=== PATIENT | male | born 1935 | race Caucasian/White ===

== ENCOUNTER 2016-03-30 11:10 | Inpatient (IN) | payer OTHER ==
--- NOTE | 2016-03-30 12:39 | PROVIDER DOCUMENTATION ---
HPI-General Adult - General Chief Complaint: Weakness Stated Complaint: DIFFICULTY AMBULATING Time Seen by Provider: 03/30/16 11:40 Source: patient, family Allergies/Adverse Reactions: Patient Allergies Allergy/AdvReac Type Severity Reaction Status Date / Time No Known Allergies Allergy Verified 03/30/16 11:22 Home Medications: Aspirin [Aspirin EC] 81 mg PO DAILY 04/30/14 Citalopram Hydrobromide [Celexa] 20 mg PO HS 04/30/14 Finasteride 5 mg PO DAILY 04/30/14 Gabapentin 300 mg PO TID 04/30/14 LISINOpril [Prinivil] 10 mg PO DAILY 04/30/14 Metformin [Glucophage] 1,000 mg PO BID 04/30/14 Metformin [Glucophage] 500 mg PO DAILY 04/30/14 Multivitamin [Multivitamins] 1 each PO DAILY 04/30/14 Adams-3 Fatty Acids/Fish Oil [Fish Oil 1,000 mg Softgel] 1 each PO DAILY SIMVAstatin [Zocor] 10 mg PO QHS 04/30/14 Cyanocobalamin (Vitamin B-12) [Vitamin B-12] 500 mcg PO DAILY 01/09/16 - History of Present Illness -Gen Adult Nature of Presenting Problems: Reports with hx of NPH shunt that presents to er with increasing weakness since yesterday. Reports was unable to get out of bed this morning and reports confusion this am that has subsided. Location of Pain/Injury: reports: none Pain Radiation: reports: no radiation Quality of Pain: reports: none Severity: reports: moderate Onset/Duration: reports: last night Timing: reports: still present Similar Symptoms Previously?: No Recently seen or treated by another doctor?: No Review of Systems - Adult - REVIEW OF SYSTEMS - ADULT Constitutional: denies: chills, fever, fatique Eyes: reports: no symptoms reported Ears, Nose, Mouth & Throat: reports: no symptoms reported Cardiovascular: denies: chest pain, irregular heart rate, orthopnea, syncope Respiratory: reports: no symptoms reported Gastrointestinal: reports: no symptoms reported Genitourinary: reports: no symptoms reported Musculoskeletal: reports: see HPI, other (generalized weakness). denies: joint pain, joint swelling, neck pain Integumentary: reports: no symptoms reported Neurological: reports: other (confusion). denies: numbness, paresthesia, seizure Psychiatric: reports: no symptoms reported Endocrine: reports: no symptoms reported Hematologic/Lymphatic: reports: no symptoms reported Allergic/Immunologic: reports: no symptoms reported All Other Systems: Reviewed and Negative Past History - Adult - PAST MEDICAL HISTORY-ADULT Review of Records: reports: Nursing Assessment Review, Medications Reviewed Cardiovascular: reports: CAD, HTN, hyperlipidemia, CO Genitourinary: reports: kidney stones Neurological: reports: TIA, other (NPH/shunt) Endocrine/Immune: reports: Diabetes, thyroid disorder - PRIOR SURGERIES/PROCEDURES Surgical/Procedure History: reports: CABG, cardiac stent (x2), orthopedic ( extremity) - IMMUNIZATION STATUS Childhood Immunizations: See Nurse Assessment Flu Vaccine: See Nurse Assessment - FAMILY HISTORY Family History: reviewed, not pertinent - SOCIAL HISTORY Smoking: denies Substance Use: none/never Physical Exam-General - PHYSICAL EXAM-ADULT Initial Vital Signs Reviewed: Yes - CONSTITUTIONAL General Appearance: appears well, alert, no apparent distress - EYES Eyes: PERRL/EOMI, pink conjunctivae - HEAD, EARS, NOSE, MOUTH & THROAT HENMT: normocephalic/atraumatic, moist mucous membranes, normal ENT inspection - NECK Neck: non-tender, full range of motion, normal inspection - RESPIRATORY Respiratory: chest non-tender, lungs clear, normal breath sounds - CARDIOVASCULAR Cardiovascular: normal peripheral pulses, regular rate, rhythm, no edema - GASTROINTESTINAL (ABDOMEN) Abdominal Exam: normal bowel sounds, non tender, soft - LYMPHATIC Lymphatic: no adenopathy - MUSCULOSKELETAL Back Exam: normal inspection, no CVA tenderness, no vertebral tenderness Extremity: normal range of motion, non-tender, normal gait - SKIN Integumentary: normal color, normal turgor, warm/dry - NEUROLOGIC Neurologic: grossly normal, no motor/sensory deficits - PSYCHIATRIC Psych/Mental Status: normal mood/affect, normal thought content, normal thought process, oriented x 3 Progress - PLAN OF CARE/RESULTS Progress/Plan/Lab Results: Orders Category Date Time Status Diabetic Diet Diet 03/30/16 12:31 Active CBC WITH ELECTRONIC DIFF [HEME] Stat Lab 03/30/16 11:51 Ordered COMPREHENSIVE METABOLIC PANEL [CHEM] Stat Lab 03/30/16 11:51 Ordered TSH Stat Lab 03/30/16 11:51 Ordered UA NIMS W/REFLEX CULT [URINALYSIS] Stat Lab 03/30/16 11:47 Uncollected Vital Signs - 24 hr 03/30/16 11:17 Temperature 98.2 F Pulse Rate 76 Respiratory 17 Rate Blood Pressure 127/66 O2 Sat by Pulse 97 Oximetry Laboratory Tests 03/30/16 03/30/16 11:14 12:49 WBC 13.61 H RBC 4.58 L Hgb 13.3 L Hct 41.4 L MCV 90.4 MCH 29.0 MCHC 32.1 L RDW Std Deviation 14.8 H Plt Count 316 MPV 10.4 Immature Gran % (Auto) 0.3 Neut % (Auto) 82.7 H Lymph % (Auto) 7.4 L Milam % (Auto) 8.3 Eos % (Auto) 1.2 Baso % (Auto) 0.1 Immature Gran # (Auto) 0.04 Neut # (Auto) 11.25 H Lymph # (Auto) 1.01 L Milam # (Auto) 1.13 H Eos # (Auto) 0.16 Baso # (Auto) 0.02 Urine Source CATH Urine Color ORANGE Urine Turbidity TURBID Urine pH 6.0 Ur Specific [place] 1.019 Urine Protein 200 A Ur Glucose (Stick) 150 A Ur Ketones (Stick) NEGATIVE Urine Blood LARGE A Urine Nitrite POSITIVE A Urine Bilirubin NEGATIVE Urobilinogen Dipstick NORMAL Urine Leukocytes LARGE A Urine WBC (Auto) TNTC A Urine RBC (Auto) TNTC A U Epithel Cells (Auto) <10 Urine Bacteria (Auto) 4+ Urine Crystals NONE SEEN Small Round Cells NONE SEEN Urine Casts NONE SEEN Urine Yeast-like Cells PRESENT PT reports pt neurosurgeon is at the [facility] in [place] Laboratory Tests 03/30/16 03/30/16 03/30/16 11:14 11:14 11:14 WBC 13.61 H RBC 4.58 L Hgb 13.3 L Hct 41.4 L MCV 90.4 MCH 29.0 MCHC 32.1 L RDW Std Deviation 14.8 H Plt Count 316 MPV 10.4 Immature Gran % (Auto) 0.3 Neut % (Auto) 82.7 H Lymph % (Auto) 7.4 L Milam % (Auto) 8.3 Eos % (Auto) 1.2 Baso % (Auto) 0.1 Immature Gran # (Auto) 0.04 Neut # (Auto) 11.25 H Lymph # (Auto) 1.01 L Milam # (Auto) 1.13 H Eos # (Auto) 0.16 Baso # (Auto) 0.02 Sodium 139 Potassium 4.0 Chloride 98 Carbon Dioxide 26 Anion Gap 15 BUN 14 Creatinine 1.0 Estimated GFR/1.73 m2 > 60 BUN/Creatinine Ratio 14 Glucose 176 H Calculated Osmolality 282 Calcium 9.9 Total Bilirubin 0.58 AST 17 ALT 14 Alkaline Phosphatase 67 Total Protein 7.4 Albumin 4.1 Globulin 3.3 Albumin/Globulin Ratio 1.2 TSH 4.49 H Urine Source Urine Color Urine Turbidity Urine pH Ur Specific [place] Urine Protein Ur Glucose (Stick) Ur Ketones (Stick) Urine Blood Urine Nitrite Urine Bilirubin Urobilinogen Dipstick Urine Leukocytes Urine WBC (Auto) Urine RBC (Auto) U Epithel Cells (Auto) Urine Bacteria (Auto) Urine Crystals Small Round Cells Urine Casts Urine Yeast-like Cells 03/30/16 12:49 WBC RBC Hgb Hct MCV MCH MCHC RDW Std Deviation Plt Count MPV Immature Gran % (Auto) Neut % (Auto) Lymph % (Auto) Milam % (Auto) Eos % (Auto) Baso % (Auto) Immature Gran # (Auto) Neut # (Auto) Lymph # (Auto) Milam # (Auto) Eos # (Auto) Baso # (Auto) Sodium Potassium Chloride Carbon Dioxide Anion Gap BUN Creatinine Estimated GFR/1.73 m2 BUN/Creatinine Ratio Glucose Calculated Osmolality Calcium Total Bilirubin AST ALT Alkaline Phosphatase Total Protein Albumin Globulin Albumin/Globulin Ratio TSH Urine Source CATH Urine Color ORANGE Urine Turbidity TURBID Urine pH 6.0 Ur Specific [place] 1.019 Urine Protein 200 A Ur Glucose (Stick) 150 A Ur Ketones (Stick) NEGATIVE Urine Blood LARGE A Urine Nitrite POSITIVE A Urine Bilirubin NEGATIVE Urobilinogen Dipstick NORMAL Urine Leukocytes LARGE A Urine WBC (Auto) TNTC A Urine RBC (Auto) TNTC A U Epithel Cells (Auto) <10 Urine Bacteria (Auto) 4+ Urine Crystals NONE SEEN Small Round Cells NONE SEEN Urine Casts NONE SEEN Urine Yeast-like Cells PRESENT [facility] Transfer paiged Pt will be sent to [facility] neurosurgery 1621 pt will be admitted to - CT/MRI 1 CT Study: Head Impression: Abnormal (positive shunt malfunction) - CONSULTS/PCP/HOSPITALIST Notification #1 *Consult/PCP/Hospitalist*: [facility] Time Discussed: 15:03 (if you do dont have a scan to compare it to this may be pt normal Can see pt in office next week.) #2 Consult: Time Discussed: 15:49 (Needs to go to where Neurosurgery is .) #3 Consult: Time Discussed: 16:11 (NPH isnt emergency unless hematoma can follow up tomorrow in office ) Departure - Departure Time of Disposition Order: 14:35 DIAGNOSIS: Encephalopathy Shunt malfunction Qualifiers: Encounter type: initial encounter Qualified Code(s): T85.618A - Breakdown ( mechanical) of other specified internal prosthetic devices, implants and grafts , initial encounter UTI (urinary tract infection) Qualifiers: Urinary tract infection type: site unspecified Hematuria presence: without hematuria Qualified Code(s): N39.0 - Urinary tract infection, site not specified Sepsis Qualifiers: Sepsis type: sepsis due to unspecified organism Qualified Code(s): A41.9 - Sepsis, unspecified organism Disposition: [place] [address] Certified Medical Emergency: Emergent Condition: Stable Referrals: None,PCP [Primary Care Provider] - Attestation - Scribe Verification/Attestation Scribe:: Deepak Hernandez Acting as Scribe for:: Ac Pollard Jr Scribe documention review:: This chart was documented by a scribe and accurately reflects the service the provider performed and the decisions made by the provider.
[2016-03-30 12:58] LABS: URINE CULTURE NEEDED? NO; URINE SOURCE CATH
[2016-03-30 13:00] LABS: BILIRUBIN URINE NEGATIVE (NEGATIVE); BLOOD URINE LARGE (NEGATIVE); COLOR ORANGE; GLUCOSE URINE 150 mg/dL (NEGATIVE); LEUKOCYTES URINE LARGE (NEGATIVE); NITRITE URINE POSITIVE (NEGATIVE); PROTEIN URINE 200 mg/dL (NEGATIVE); SP GRAVITY URINE 1.019; TURBIDITY URINE TURBID (CLEAR); UROBILINOGEN URINE NORMAL (NORMAL)
[2016-03-30 13:06] LABS: UR EPITHELIAL CELLS <10 /HPF (<10); URINE BACTERIA 4+ /HPF; URINE MICRO REVIEW NEEDED? YES; URINE RBC TNTC /HPF (<10); URINE WBC TNTC /HPF (<10)
[2016-03-30 13:10] LABS: URINE CASTS NONE SEEN; URINE CRYSTALS NONE SEEN; URINE SMALL ROUND CELLS NONE SEEN
[2016-03-30 13:12] LABS: MANUAL DIFF NEEDED? NO
[2016-03-30 13:15] LABS: BASO% 0.1 % (0.0-0.8); EOS# 0.16 X1000 (0.0-0.7); EOS% 1.2 % (0.0-10.0); HEMATOCRIT 41.4 % (42.0-52.0); HEMOGLOBIN 13.3 g/dL (14.0-18.0); IMM GRAN# 0.04 X1000 (0.0-0.04); IMM GRAN% 0.3 % (0.0-0.5); LYMPH# 1.01 X1000 (1.2-3.4); LYMPH% 7.4 % (20.5-51.1); MCHC 32.1 g/dL (33-37); MCV 90.4 FL (81-99); MONO# 1.13 X1000 (0.11-0.59); MONO% 8.3 % (1.7-9.3); MPV 10.4 FL (7.4-10.4); NEUT% 82.7 % (42.2-75.2); PLT 316 X1000 (130-400); RBC 4.58 XMIL (4.7-6.1)
[2016-03-30 13:32] LABS: AGAP 15; ALBUMIN 4.1 g/dL (3.5-5.0); ALKALINE PHOSPHATASE 67 U/L (32-122); BUN 14 mg/dL (8-22); CALCIUM 9.9 mg/dL (8.8-10.2); CHLORIDE 98 mmol/L (98-107); COSMO 282; GOT 17 U/L (10-34); GPT 14 U/L (10-44); SODIUM 139 mmol/L (136-145); TCO2 26 mmol/L (25-35); TOTAL BILIRUBIN 0.58 mg/dL (0.20-1.00); TOTAL PROTEIN 7.4 g/dL (6.3-8.3)
[2016-03-30] MEDS ORDERED: ROCEPHIN 1 GM/NS 50 ML IV ONE (13:41)
--- NOTE | 2016-03-30 14:35 | Diag Imaging Result Document ---
PROCEDURE NAME: HEAD W/O CONTRAST - 03/30/[address], 03/30/2016: A CT dose reduction protocol was used. COMPARISON: None. FINDINGS: There is a right frontal ventriculostomy catheter with the catheter tip in the right frontal horn. There is moderately severe ventriculomegaly, out of proportion of the degree of atrophy. There is some periventricular white matter hypodensity particularly in the right frontal lobe, but not really throughout the rest of the brain. No intracranial hemorrhage. The skull is intact. The sinuses are grossly clear. IMPRESSION: Ventriculomegaly out of proportion with the atrophy. This suggests hydrocephalus due to shunt malfunction. [facility]
[2016-03-30] MEDS ORDERED: VANCOMYCIN 1 GM/NS 250 ML IV ONE (16:22)
[2016-03-30] MEDS ORDERED: ZOFRAN IV PRN (17:18)
[2016-03-30] MEDS ORDERED: MORPHINE IV PRN (17:18)
--- NOTE | 2016-03-30 18:00 | HISTORY AND PHYSICAL ---
PRIMARY CARE PROVIDER: Dr. Staley at the [facility] in [place]. CHIEF COMPLAINT: Generalized weakness. HISTORY OF PRESENT ILLNESS: Mr. 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 His was able to help him but she could not get him to move his extremities to help roll over. She also stated that he started having hallucinations where he thought his mother was still alive. He was unsure of whose vehicle was in the driveway and it was theirs. She left him in this position on his stomach overnight. The next morning she was still unable to get him out of bed. She called 911. They helped her get him into the wheelchair. He ate breakfast and then she realized that him wearing a diaper, she was unable to help clean his bodily functions due to his extreme weakness. Upon admission workup revealed a head CT showing ventriculomegaly that was out of proportion with atrophy which suggests hydrocephalus due to shunt malfunction. According to the he has been in a wheelchair for about 2 months but prior to that he was using a walker. They did see Dr. Jacobo 2 months ago for BP shunt adjustment but at that time did not discuss his increasing weakness. Other assessment reveals that he has a urinary tract infection that will need IV antibiotic therapy which could also be adding to the confusion that he has been experiencing over the last 24 hours and weakness. The ER physician got in contact with Dr. Jacobo who said that he could make an appointment next Tuesday to follow up with malfunctioning of the SERVER DEVELOPER shunt. According to the they already had an appointment on May 05. We will admit him to the medical floor and continue to treat his urinary tract infection with IV antibiotics. PAST MEDICAL HISTORY: Coronary artery disease status post CABG, history of CVA, normal pressure hydrocephalus status post SERVER DEVELOPER shunt placement, hypertension, dyslipidemia, diabetes mellitus type 2, obesity with a BMI of 20 and fecal urinary incontinence and also has a skin irritation at the rectal and sacrum area. PAST SURGICAL HISTORY: Coronary bypass grafting, SERVER DEVELOPER shunt implementation. FAMILY HISTORY: Noncontributory due to age. SOCIAL HISTORY: Has been wheelchair bound for 2 months. Prior to that was in a walker. He is a . Denies tobacco, alcohol or illicit drug use. Lives at home with his of 61 years. ALLERGIES: No known drug allergies. HOME MEDICATIONS: Aspirin enteric-coated 81 mg p.o. daily, Celexa 20 mg p.o. nightly, finasteride 5 mg p.o. daily, gabapentin 300 mg p.o. 3 times a day, metformin 1000 mg p.o. twice daily and 500 mg p.o. daily, multivitamin 1 tab p.o. daily, fish oil 1 tab p.o. daily, lisinopril 10 mg p.o. daily, Zocor 10 mg p.o. nightly, vitamin B12 500 mcg p.o. daily, Flomax 0.4 mg p.o. daily and Protonix 40 mg p.o. daily. REVIEW OF SYSTEMS: Fourteen point review of systems were complete and all were negative except for those mentioned above HPI. LABORATORY: White blood cells 13,000, hemoglobin 13, hematocrit 41, platelet count 316,000. Sodium 139, potassium 4.0. BUN 14, creatinine is 1.0. GFR greater than 60. Glucose 176. Calcium 9.9. Total bilirubin 0.58. AST 17, ALT 14. Lactate 2.3. TSH 4.49. Urinalysis: 200 protein, 150 glucose, large blood, nitrite positive, leukocytes large. White blood cells too numerous to count. Red blood cells too numerous to count, bacteria 4+ and present yeast in urine. IMAGING: Head CT: Ventriculomegaly out of proportion with atrophy suggesting hydrocephalus due to shunt malfunction. PHYSICAL EXAMINATION: VITAL SIGNS: Temperature is 98.2 degrees, heart rate 83, respiratory rate 16, blood pressure 132/61, O2 saturation 95% on room air. GENERAL: Mr. Martinez is an 80-year-old, male. He is able answer questions appropriately but still has confused conversation. He is in no acute distress. HEENT: Atraumatic, normocephalic. Pupils equal, round, reactive to light. Extraocular movements intact. Face does have a little bit of a redness to it. NECK: No JVD or carotid bruits noted. CARDIOVASCULAR: S1, S2. Regular rate and rhythm. No rubs, gallops, murmurs. PULMONARY: Clear to auscultation. Bilateral breath sounds. No accessory muscle use or work of breathing noted. GI: Soft, nontender, nondistended. Positive bowel sounds x4. EXTREMITIES: He has about 2 to 3 strength in the lower extremities bilaterally that are equal. He has about a 4 to 4.5 strength bilateral upper extremities that are equal. He has +2 dorsalis pedal pulses and radial pulses. NEUROLOGIC: He is oriented x3 but had confused conversation. Pupils are equal, round, reactive. EXTREMITIES: No edema noted. SKIN: Warm, dry, intact. ASSESSMENT AND PLAN: 1. Urinary tract infection with sepsis with a white count greater than 12 and a respiratory rate greater than 20. Also has lactic acidosis with lactate of 2.3. Will do Zosyn IV q.6 hours. I will do a urine culture. 2. Infectious encephalopathy secondary to urinary tract infection. Should improve with UTI treatment and antibiotics, IV fluid hydration. 3. Normal pressure hydrocephalus status post SERVER DEVELOPER shunt placement. He had a CT of the head today. It revealed possible malfunctioning of the shunt. He has ventriculomegaly. He is to follow up with Dr. Jacobo next Tuesday. The ER physician has spoken to him prior to admission which may possibly be related to decreased strength in the lower extremities from SERVER DEVELOPER shunt adjustment 2 months ago and he has been in the wheelchair for 2 months now. 4. Hypertension. Continue medications. 5. Dyslipidemia. Hold statin for now given decreased strength. 6. Diabetes type 2. We will do sliding scale insulin and pattern blood glucoses. 7. Obesity. BMI has been corrected in the computer with incorrect weight placed in the computer. 8. Fecal and urinary incontinence with redness, excoriation type of redness around his sacrum and anal area. We will do a Wound Care consult. 9. Deep venous thrombosis prophylaxis. SCDs. 10. Gastrointestinal prophylaxis. Proton pump inhibitor. Dictated by SID Davenport for Raghavendra Romero MD
[2016-03-30] MEDS: NS 1,000 ML IV SCH ×2 (19:33→22:23)
[2016-03-30] MEDS: PROTONIX IV SCH (19:34)
[2016-03-30] MEDS: ZOSYN 3.375 GM/NS 50 ML IV SCH (19:34)
[2016-03-30] MEDS: NEURONTIN PO SCH (19:34)
[2016-03-30] MEDS: CELEXA PO SCH (22:24)
[2016-03-31] MEDS: ZOSYN 3.375 GM/NS 50 ML IV SCH ×5 (00:07→18:10)
[2016-03-31 06:34] LABS: MANUAL DIFF NEEDED? NO
[2016-03-31] MEDS: PROTONIX PO SCH (06:35)
[2016-03-31 06:44] LABS: BASO% 0.3 % (0.0-0.8); EOS# 0.39 X1000 (0.0-0.7); EOS% 3.8 % (0.0-10.0); HEMOGLOBIN 11.2 g/dL (14.0-18.0); IMM GRAN# 0.02 X1000 (0.0-0.04); IMM GRAN% 0.2 % (0.0-0.5); LYMPH# 0.93 X1000 (1.2-3.4); MCH 28.4 PG (27-31); MCHC 31.1 g/dL (33-37); MCV 91.1 FL (81-99); MONO# 1.14 X1000 (0.11-0.59); MPV 9.9 FL (7.4-10.4); NEUT% 75.7 % (42.2-75.2); PLT 284 X1000 (130-400); RBC 3.95 XMIL (4.7-6.1)
[2016-03-31 07:13] LABS: AGAP 11; BUN 13 mg/dL (8-22); CALCIUM 8.8 mg/dL (8.8-10.2); CHLORIDE 102 mmol/L (98-107); COSMO 284; SODIUM 140 mmol/L (136-145); TCO2 27 mmol/L (25-35)
[2016-03-31] MEDS: VITAMIN B-12 PO SCH (09:15)
[2016-03-31] MEDS: THERA M PLUS PO SCH (09:15)
[2016-03-31] MEDS: FLOMAX PO SCH (09:15)
[2016-03-31] MEDS: PRINIVIL PO SCH (09:15)
[2016-03-31] MEDS: ASPIRIN EC PO SCH (09:15)
[2016-03-31] MEDS: FISH OIL CONCENTRATE PO SCH (09:15)
[2016-03-31] MEDS: PROSCAR PO SCH (09:15)
[2016-03-31] MEDS: NEURONTIN PO SCH ×3 (09:15→16:15)
--- NOTE | 2016-03-31 11:24 | PROGRESS NOTE ---
DATE: 03/31/2016 SUBJECTIVE: Patient is feeling fine. Denies any fever, chills, or any urinary symptoms. OBJECTIVE: Vital Signs: Temperature 97.9 degrees, heart rate 80, respiratory rate 16, blood pressure 140/66, O2 saturation 90% on room air. General Examination: These is an 80-year-old, chronically ill-looking, male, lying in bed, in no acute distress. HEENT: Head is normocephalic, atraumatic. Anicteric sclerae. Pale conjunctivae. Mucous membranes moist. Neck: Supple. No JVD noted. No carotid bruits. No lymphadenopathy. Cardiovascular: S1, S2 heard. No murmurs, gallops, or rubs. Regular rate and rhythm. Respiratory: Clear bilaterally to auscultation. No work of breathing or using accessory muscles. Abdomen: Soft, nontender to palpation. Bowel sounds present. No organomegaly. Extremities: No edema, clubbing, or cyanosis. Neurological: Patient has 5/5 muscles strength in both upper extremities and lower extremities. Patient is definitely more alert and awake. LABORATORY DATA: White cell count 10.32, hemoglobin 11.3, hematocrit 36.0, platelets 284,000. BMP unremarkable. Urine cultures pending. ASSESSMENT AND PLAN: 1. Urinary tract infection. The white cell count is back to normal. We have not checked lactic acid today but I think it may have came back normal too. At this point, we will continue with Zosyn. He is not spiking any fever. 2. Infectious encephalopathy. That condition has resolved. Patient is alert and oriented x3. 3. Normal pressure hydrocephalus status post ventriculoperitoneal shunt placement. That condition is stable. 4. Hypertension. Will continue with home medications at the same doses. 5. Dyslipidemia. The patient is not being given statin because of the decreased strength. 6. Diabetes mellitus type 2. We will continue with insulin sliding scale. 7. Obesity. Aware. 8. Fecal and urine incontinence. Aware.
[2016-03-31] MEDS: HUMULIN R SUBQ SCH ×2 (14:00→16:15)
[2016-03-31] MEDS: NS 1,000 ML IV SCH ×2 (14:04→18:11)
[2016-03-31 16:14] LABS: HEMOGLOBIN A1C 7.3 % (4.8-6.0)
[2016-03-31] MEDS: SODIUM CHLORIDE 0.9% INJ SCH (18:10)
[2016-03-31] MEDS: PROTONIX IV SCH (18:10)
[2016-03-31] MEDS: CELEXA PO SCH (20:52)
[2016-04-01] MEDS: ZOSYN 3.375 GM/NS 50 ML IV SCH ×3 (00:15→15:09)
[2016-04-01] MEDS: NS 1,000 ML IV SCH ×3 (04:57→23:02)
[2016-04-01] MEDS: HUMULIN R SUBQ SCH ×5 (04:57→21:13)
[2016-04-01 06:39] LABS: MANUAL DIFF NEEDED? NO
[2016-04-01 07:02] LABS: BASO% 0.4 % (0.0-0.8); EOS# 0.53 X1000 (0.0-0.7); EOS% 6.8 % (0.0-10.0); HEMATOCRIT 36.3 % (42.0-52.0); HEMOGLOBIN 11.4 g/dL (14.0-18.0); LYMPH# 1.23 X1000 (1.2-3.4); LYMPH% 15.8 % (20.5-51.1); MCH 28.7 PG (27-31); MCHC 31.4 g/dL (33-37); MCV 91.4 FL (81-99); MONO# 0.87 X1000 (0.11-0.59); MONO% 11.2 % (1.7-9.3); NEUT% 65.8 % (42.2-75.2); PLT 283 X1000 (130-400); RBC 3.97 XMIL (4.7-6.1)
[2016-04-01 07:18] LABS: AGAP 14; BUN 12 mg/dL (8-22); CALCIUM 9.1 mg/dL (8.8-10.2); CHLORIDE 104 mmol/L (98-107); COSMO 286; POTASSIUM 4.2 mmol/L (3.5-5.1); SODIUM 141 mmol/L (136-145); TCO2 23 mmol/L (25-35)
[2016-04-01] MEDS: FISH OIL CONCENTRATE PO SCH (09:09)
[2016-04-01] MEDS: FLOMAX PO SCH (09:09)
[2016-04-01] MEDS: PROSCAR PO SCH (09:09)
[2016-04-01] MEDS: ASPIRIN EC PO SCH (09:09)
[2016-04-01] MEDS: THERA M PLUS PO SCH (09:09)
[2016-04-01] MEDS: VITAMIN B-12 PO SCH (09:09)
[2016-04-01] MEDS: NEURONTIN PO SCH ×3 (09:09→16:55)
[2016-04-01] MEDS: PRINIVIL PO SCH (09:09)
[2016-04-01] MEDS ORDERED: VANCOMYCIN IV PER PHARMACY MISC SCH (15:45)
--- NOTE | 2016-04-01 16:09 | PROGRESS NOTE ---
DATE: 04/01/2016 SUBJECTIVE: Patient is feeling fine. No fever. No shortness of breath. OBJECTIVE: Vital signs: Temperature 98.6 degrees, heart rate 64, respiratory rate 18, blood pressure 103/72, O2 saturation 98% on room air. General: This is an 80-year-old, chronically ill-looking, male, lying in bed, in no acute distress. HEENT: Head is normocephalic, atraumatic. Anicteric sclerae. Pale conjunctivae. Mucous membranes moist. Neck: Supple. No JVD noted. No carotid bruits. No lymphadenopathy. Cardiovascular: S1, S2 heard. No murmurs, gallops, or rubs. Regular rate and rhythm. Respiratory: Clear bilaterally to auscultation. No work of breathing or using accessory muscles. Abdomen: Soft. Nontender to palpation. Bowel sounds present. No organomegaly. Extremities: No clubbing, cyanosis, or edema. Peripheral pulses present in both legs. Neurological: The patient is more alert and awake. Moves 4 extremities. LABORATORY DATA: White cell count 7.78, hemoglobin 11.4, hematocrit 36.3 platelets 283,000. BMP unremarkable. Microbiology shows in the urine MRSA. ASSESSMENT AND PLAN: 1. Methicillin-resistant Staphylococcus aureus urinary tract infection. At this point because of the result, what we are going to do is to switch antibiotics and at this time we are going to add vancomycin to his current treatment, renally dosed. We are going to stopped Zosyn. We are going to ask Dr. Dee from infectious disease to help us in the management of this patient and in anticipation for possible long-term antibiotic therapy we are going to go ahead and put a PICC line. 2. Infectious encephalopathy, resolved. 3. Normal pressure hydrocephalus status post ventriculoperitoneal shunt. This condition is stable. 4. Hypertension. We will continue with the same medication. 5. Dyslipidemia. Currently the patient is not on any treatment. 6. Diabetes mellitus type 2. Will continue with sliding scale insulin. 7. Obesity. Aware. 8. Fecal and urine incontinence. Aware.
[2016-04-01] MEDS: SODIUM CHLORIDE 0.9% INJ SCH (16:59)
[2016-04-01] MEDS: PROTONIX IV SCH (16:59)
[2016-04-01] MEDS ORDERED: VANCOMYCIN 1.5 GM in NS 250 ML IV ONE (18:00)
[2016-04-01] MEDS: CELEXA PO SCH (20:43)
[2016-04-02] MEDS: NS 1,000 ML IV SCH ×4 (02:45→20:36)
[2016-04-02] MEDS: PROTONIX PO SCH ×2 (06:10→07:25)
[2016-04-02 07:13] LABS: MANUAL DIFF NEEDED? NO
[2016-04-02 07:21] LABS: BASO% 0.5 % (0.0-0.8); EOS# 0.58 X1000 (0.0-0.7); EOS% 9.6 % (0.0-10.0); HEMATOCRIT 34.8 % (42.0-52.0); HEMOGLOBIN 10.9 g/dL (14.0-18.0); LYMPH# 1.39 X1000 (1.2-3.4); LYMPH% 22.9 % (20.5-51.1); MCH 28.7 PG (27-31); MCHC 31.3 g/dL (33-37); MCV 91.6 FL (81-99); MONO# 0.68 X1000 (0.11-0.59); MONO% 11.2 % (1.7-9.3); NEUT% 55.8 % (42.2-75.2); PLT 275 X1000 (130-400)
[2016-04-02 07:38] LABS: AGAP 12; BUN 11 mg/dL (8-22); CALCIUM 8.8 mg/dL (8.8-10.2); CHLORIDE 105 mmol/L (98-107); COSMO 284; POTASSIUM 3.9 mmol/L (3.5-5.1); SODIUM 141 mmol/L (136-145); TCO2 24 mmol/L (25-35)
[2016-04-02] MEDS: THERA M PLUS PO SCH (08:22)
[2016-04-02] MEDS: FLOMAX PO SCH (08:22)
[2016-04-02] MEDS: PRINIVIL PO SCH (08:22)
[2016-04-02] MEDS: NEURONTIN PO SCH ×3 (08:22→17:23)
[2016-04-02] MEDS: ASPIRIN EC PO SCH (08:22)
[2016-04-02] MEDS: VITAMIN B-12 PO SCH (08:22)
[2016-04-02] MEDS: FISH OIL CONCENTRATE PO SCH (08:22)
[2016-04-02] MEDS: PROSCAR PO SCH (08:22)
[2016-04-02] MEDS: HUMULIN R SUBQ SCH ×4 (10:33→20:41)
[2016-04-02] MEDS: SODIUM CHLORIDE 0.9% INJ SCH (17:20)
[2016-04-02] MEDS: PROTONIX IV SCH (17:20)
[2016-04-02] MEDS: VANCOMYCIN 1 GM/NS 250 ML IV SCH ×2 (17:22→17:36)
--- NOTE | 2016-04-02 17:23 | PROGRESS NOTE ---
DATE: 04/02/2016 SUBJECTIVE: Patient is feeling fine. He denies any fever or chills. He was not able to walk around today. He is feeling weak. OBJECTIVE: Vital Signs: Temperature 98.5 degrees, heart rate 62, respiratory rate 21, blood pressure 155/74, O2 saturation 93% on room air. General Examination: This is an 80-year-old, chronically ill-looking, male, lying in bed, in no acute distress. HEENT: Head is normocephalic, atraumatic. Anicteric sclerae, pale conjunctivae. Mucous membranes moist. Neck: Supple. No JVD noted. No carotid bruits. No lymphadenopathy. No thyromegaly. Cardiovascular: S1, S2 heard. No murmurs, gallops, or rubs. Regular rate and rhythm. Respiratory: Clear bilaterally to auscultation. No work of breathing or using accessory muscles. Abdomen: Soft, nontender to palpation. Bowel sounds present. No organomegaly. Extremities: No clubbing, cyanosis, or edema. Peripheral pulses present in both legs. Neurological Examination: Patient alert and oriented x3. Moves all extremities. LABORATORY DATA: White cell count 6.07, hemoglobin 10.9, hematocrit 34.8, platelets 275,000. BMP unremarkable. ASSESSMENT AND PLAN: 1. MRSA urinary tract infection. At this point we will continue with vancomycin. White cell count is back to normal, so I think this patient can be discharged with oral antibiotics, in this case DS. Unfortunately, this patient is not able to walk around so I think he is at high risk of falling, and considering also his order comorbidities like normal pressure hydrocephalus status post ventriculoperitoneal shunt, I prefer to send this patient to a rehabilitation facility. Social Work has been consulted and probably next Tuesday we will be able to send this patient. 2. Infectious encephalopathy, resolved. 3. Normal pressure hydrocephalus status post ventriculoperitoneal shunt, stable. 4. Hypertension. We will continue with the same medication as the condition is controlled. 5. Dyslipidemia. Patient is not on any medication. 6. Diabetes mellitus type 2. We will continue with sliding scale insulin. 7. Obesity, aware. 8. Urinary incontinence, aware.
[2016-04-02] MEDS: CELEXA PO SCH (20:41)
[2016-04-03 06:18] LABS: MANUAL DIFF NEEDED? NO
[2016-04-03 06:22] LABS: BASO% 0.6 % (0.0-0.8); EOS# 0.68 X1000 (0.0-0.7); EOS% 9.9 % (0.0-10.0); HEMOGLOBIN 10.3 g/dL (14.0-18.0); IMM GRAN# 0.03 X1000 (0.0-0.04); IMM GRAN% 0.4 % (0.0-0.5); LYMPH# 1.72 X1000 (1.2-3.4); LYMPH% 24.9 % (20.5-51.1); MCH 28.6 PG (27-31); MCHC 31.2 g/dL (33-37); MCV 91.7 FL (81-99); MONO# 0.81 X1000 (0.11-0.59); MONO% 11.7 % (1.7-9.3); MPV 9.8 FL (7.4-10.4); NEUT% 52.5 % (42.2-75.2); PLT 292 X1000 (130-400)
[2016-04-03 06:49] LABS: AGAP 11; BUN 14 mg/dL (8-22); CALCIUM 9.1 mg/dL (8.8-10.2); CHLORIDE 104 mmol/L (98-107); COSMO 284; POTASSIUM 4.1 mmol/L (3.5-5.1); SODIUM 141 mmol/L (136-145); TCO2 26 mmol/L (25-35)
[2016-04-03] MEDS: NS 1,000 ML IV SCH ×2 (07:03→17:02)
[2016-04-03] MEDS: PROTONIX PO SCH (07:03)
[2016-04-03] MEDS: HUMULIN R SUBQ SCH ×4 (07:04→21:35)
[2016-04-03] MEDS: FISH OIL CONCENTRATE PO SCH (08:22)
[2016-04-03] MEDS: FLOMAX PO SCH (08:22)
[2016-04-03] MEDS: THERA M PLUS PO SCH (08:22)
[2016-04-03] MEDS: PROSCAR PO SCH (08:22)
[2016-04-03] MEDS: PRINIVIL PO SCH (08:22)
[2016-04-03] MEDS: NEURONTIN PO SCH ×3 (08:22→17:02)
[2016-04-03] MEDS: VITAMIN B-12 PO SCH (08:22)
[2016-04-03] MEDS: ASPIRIN EC PO SCH (08:23)
--- NOTE | 2016-04-03 14:37 | PROGRESS NOTE ---
DATE: 04/03/2016 SUBJECTIVE: The patient is feeling fine. The patient reports feeling a little bit weak and unable to walk around. OBJECTIVE: Vital Signs: Temperature 98.5 degrees, heart rate 60, respiratory rate 22, blood pressure 155/61. O2 saturation 94% on room air. General: This is an 80-year-old chronically ill- looking, male, lying in bed in no acute distress. HEENT: Head is normocephalic, atraumatic. Anicteric sclerae and pale conjunctivae. Mucous membranes moist. Neck supple. No JVD noted. No carotid bruits. No lymphadenopathy. No thyromegaly. Cardiovascular: S1, S2 heard. No murmurs, gallops, or rubs. Regular rate and rhythm. Respiratory: Clear bilaterally to auscultation. No work of breathing or using accessory muscles. Abdomen is soft, nontender to palpation. Bowel sounds present. No organomegaly. Extremities: No clubbing, cyanosis, or edema. Peripheral pulses present in both legs. Neurologic: The patient is alert and oriented x3. Moves 4 extremities. LABORATORY DATA: White cell count 6.90, hemoglobin 10.3, hematocrit 33.0, platelets 292,000. BMP unremarkable. ASSESSMENT AND PLAN: 1. Methicillin-resistant Staphylococcus aureus urinary tract infection. At this point, we will continue with vancomycin. The patient is responding to the therapy. Today is day number 2 of vancomycin. At this point, while this patient is in the hospital, we will continue with this medication and, at discharge, he can be discharged with Septra DS. We need to probably continue with at least 10 days of antibiotics. 2. Infectious encephalopathy, resolved. 3. Normal pressure hydrocephalus, status post ventriculoperitoneal shunt. This condition is stable. 4. Hypertension. Blood pressure is under control. We will continue with the same management. 5. Dyslipidemia, aware. 6. Diabetes mellitus. We will continue with sliding scale insulin. 7. Deconditioning. The patient has been evaluated by physical therapy, and he was found to be very weak, so their recommendation is to send this patient to a rehab facility because of the high risk of falling. We will follow there recommendations. 8. human services worker will we consulted as well.
[2016-04-03] MEDS: VANCOMYCIN 1 GM/NS 250 ML IV SCH (17:48)
[2016-04-03] MEDS: PROTONIX IV SCH (17:50)
[2016-04-03] MEDS: SODIUM CHLORIDE 0.9% INJ SCH (17:50)
[2016-04-03] MEDS: CELEXA PO SCH (21:35)
[2016-04-04] MEDS: NS 1,000 ML IV SCH ×2 (04:21→12:52)
[2016-04-04 06:55] LABS: MANUAL DIFF NEEDED? NO
[2016-04-04 07:00] LABS: BASO% 0.6 % (0.0-0.8); EOS# 0.56 X1000 (0.0-0.7); EOS% 7.7 % (0.0-10.0); HEMATOCRIT 34.7 % (42.0-52.0); HEMOGLOBIN 10.7 g/dL (14.0-18.0); IMM GRAN# 0.04 X1000 (0.0-0.04); IMM GRAN% 0.6 % (0.0-0.5); LYMPH# 1.71 X1000 (1.2-3.4); LYMPH% 23.6 % (20.5-51.1); MCH 28.2 PG (27-31); MCHC 30.8 g/dL (33-37); MCV 91.6 FL (81-99); MONO# 0.72 X1000 (0.11-0.59); MONO% 9.9 % (1.7-9.3); MPV 9.5 FL (7.4-10.4); NEUT% 57.6 % (42.2-75.2); PLT 299 X1000 (130-400); RBC 3.79 XMIL (4.7-6.1)
[2016-04-04] MEDS: HUMULIN R SUBQ SCH ×4 (07:00→21:52)
[2016-04-04] MEDS: PROTONIX PO SCH (07:00)
[2016-04-04 07:22] LABS: AGAP 10; BUN 11 mg/dL (8-22); CALCIUM 9.2 mg/dL (8.8-10.2); CHLORIDE 106 mmol/L (98-107); COSMO 286; POTASSIUM 4.1 mmol/L (3.5-5.1); SODIUM 142 mmol/L (136-145); TCO2 26 mmol/L (25-35)
[2016-04-04] MEDS: FLOMAX PO SCH (08:51)
[2016-04-04] MEDS: FISH OIL CONCENTRATE PO SCH (08:52)
[2016-04-04] MEDS: PRINIVIL PO SCH (08:52)
[2016-04-04] MEDS: PROSCAR PO SCH (08:52)
[2016-04-04] MEDS: ASPIRIN EC PO SCH (08:52)
[2016-04-04] MEDS: NEURONTIN PO SCH ×3 (08:52→16:44)
[2016-04-04] MEDS: THERA M PLUS PO SCH (08:52)
[2016-04-04] MEDS: VITAMIN B-12 PO SCH (08:52)
--- NOTE | 2016-04-04 14:34 | PROGRESS NOTE ---
DATE: 04/04/2016 SUBJECTIVE: Patient is feeling fine. Denies any fever or chills. OBJECTIVE: Vital Signs: Temperature 97.9 degrees, heart rate 63, respiratory rate 16, blood pressure 164/65, O2 saturation 98% on room air. General: This is an 80-year-old chronically ill-looking male lying in bed in no acute distress. HEENT: Head is normocephalic, atraumatic. Anicteric sclerae and pale conjunctivae. Mucous membranes moist. Neck: Supple. No JVD. No carotid bruits. No lymphadenopathy. No thyromegaly. Cardiovascular: S1, S2 heard. No murmurs, gallops, or rubs. Regular rate and rhythm. Respiratory: Clear bilaterally to auscultation. No work of breathing or using accessory muscles. Abdomen: Soft, nontender to palpation. Bowel sounds present. No organomegaly. Extremities: No clubbing, cyanosis, or edema. Peripheral pulses present in both legs. Neurological: Patient is alert and oriented x3. Able to move 4 extremities. Cranial nerves 2-12 grossly normal. LABORATORY DATA: White cell count 7.25, hemoglobin 10.7, hematocrit 34.7, platelets 299,000. Sodium 142, potassium 4.1, chloride 106, bicarb 26, BUN 10, creatinine 1.0, glucose 161. ASSESSMENT/PLAN: 1. Methicillin-resistant Staphylococcus aureus urinary tract infection. Will continue with vancomycin at this time and at discharge we are going to change it to Septra DS. At this point the white cell count is back to normal. He is not developing any fever. 2. Infectious encephalopathy resolved. 3. Normal pressure hydrocephalus status post ventriculoperitoneal shunt. This condition is stable. 4. Hypertension. Blood pressure is a little bit up today so we are going to change the medication. In this case he was taking lisinopril 1 tablet p.o. daily 10 mg. we are going to change to 20 mg p.o. at bedtime because usually blood pressure is really high on the range of 180 and 190 in the morning. 5. Dyslipidemia. Aware. 6. Diabetes mellitus. Will continue with sliding scale insulin. 7. Deconditioning. Patient has been seen by physical therapy and they recommend rehab facility. We have put a consult for [employer] social worker so hopefully he can be sent to rehab facility in a couple of days.
[2016-04-04] MEDS: PROTONIX IV SCH (17:24)
[2016-04-04] MEDS: SODIUM CHLORIDE 0.9% INJ SCH (17:25)
[2016-04-04] MEDS ORDERED: VANCOMYCIN 1,200 MG in NS 250 ML IV SCH (18:00)
[2016-04-04] MEDS: CELEXA PO SCH (20:06)
[2016-04-04] MEDS ORDERED: PRINIVIL PO SCH (21:00)
[2016-04-05] MEDS: NS 1,000 ML IV SCH ×2 (01:02→10:50)
[2016-04-05] MEDS: HUMULIN R SUBQ SCH ×3 (06:52→16:45)
[2016-04-05] MEDS: PROTONIX PO SCH (06:53)
[2016-04-05 07:25] VITALS: BP 166/72
[2016-04-05] MEDS: FLOMAX PO SCH (09:07)
[2016-04-05] MEDS: FISH OIL CONCENTRATE PO SCH (09:07)
[2016-04-05] MEDS: PROSCAR PO SCH (09:07)
[2016-04-05] MEDS: ASPIRIN EC PO SCH (09:07)
[2016-04-05] MEDS: NEURONTIN PO SCH ×2 (09:07→14:45)
[2016-04-05] MEDS: VITAMIN B-12 PO SCH (09:07)
[2016-04-05] MEDS: THERA M PLUS PO SCH (09:07)
--- NOTE | 2016-04-05 11:14 | Diag Imaging Result Document ---
PROCEDURE NAME: CHEST-PORTABLE - 04/05/2016 PORTABLE CHEST AT 1000 HOURS: FINDINGS: There is blunting of the left costophrenic angle and linear opacities of the left upper lobe consistent with fibrosis. This has not changed significantly since 04/30/2014. IMPRESSION: Pleural and parenchymal fibrosis.
--- NOTE | 2016-04-05 16:33 | DISCHARGE SUMMARY ---
ADMISSION DATE: 03/30/2016 DISCHARGE DATE: CONSULTATIONS: None. PERTINENT PROCEDURES: Head CT. Showed visceromegaly at a portion with atrophy such as hydrocele, status shunt malformation. Chest x-ray showed pleural and parenchymal fibrosis. DISCHARGE DIAGNOSES: 1. Sepsis secondary to methicillin resistant Staph aureus urinary tract infection. Patient only going to rehab on p.o. Septra DS. 2. Sepsis, resolved. 3. Infectious encephalopathy, resolved. 4. Normal-pressure hydrocephalus, status post ventriculoperitoneal shunt, stable. 5. Hypertension, uncontrolled with blood pressure adjustments. 6. Dyslipidemia, on Zocor. 7. Diabetes mellitus. 8. Deconditioning. The patient going to rehab. 9. Obesity, aware. 10. Fecal and urinary incontinence with redness and excoriation type redness around the sacrum and anal area. Continue with wound care and barriers, cream. HOSPITAL COURSE: Mr. Martinez is an 80-year-old ill-appearing male, with a history of coronary artery disease, status post coronary artery bypass graft, normal- pressure hydrocephalus, status post COUNTERSINKER BALANCE SCREW HOLE shunt placement, hypertension, dyslipidemia, diabetes mellitus type 2, osteoarthritis. The night before his admission, the patient could not get out of the wheelchair to the bed. His unable to assist him, but she could get him to move his extremities to help roll over. He started having hallucinations. The patient was left lying on his stomach overnight. The next morning she was unable to get him out of bed. She did call paramedics. They helped and get to the wheelchair. He did eat breakfast and she realized that he was wearing a diaper and she was unable to clean his bodily functions due to his extreme weakness. Head CT in the ED showed ventriculomegaly that was out of proportion with atrophy suggesting of hydrocephalus, status shunt malfunction. According to the , he has been in wheelchair for about 2 months but prior to that he was using a walker. He did see Dr. Jacobo 2 months ago for COUNTERSINKER BALANCE SCREW HOLE shunt adjustment, but at that time they did not discuss his increasing weakness. Other assessment revealed a urinary tract infection. Started on IV antibiotics. The patient was found have a white count of 13 and a lactic acidosis, with a lactate of 2.3. Patient was admitted to the medical floor with sepsis and wound care was consulted for excoriation type of redness around the sacrum and the anal area. After treatment, the patient is alert and oriented x3. Patient's urine did grow out methicillin resistant Staph aureus urinary tract infection. His antibiotics was switched to vancomycin from Zosyn. Due to patient not being able to walk, PT was ordered. They suggested that the patient go to rehab. His IV antibiotics will be changed to Septra DS for 1 week b.i.d. Vital signs at time of discharge, temperature is 98.3 degrees, heart rate 57, respirations 20, blood pressure is 166/72, O2 is 94% on room air. DISCHARGE DIET: Diabetic. DISCHARGE MEDICATIONS: 1. Aspirin 81 mg. p.o. daily. 2. Celexa 20 mg p.o. at bedtime. 3. Finasteride 5 mg p.o. daily. 4. Gabapentin 300 mg p.o. t.i.d. 5. Glucophage 1000 mg p.o. b.i.d. 6. Multivitamin one each p.o. daily. 7. Fish oil one each p.o. daily. 8. Prinivil 10 mg p.o. daily. 9. Zocor 10 mg p.o. at bedtime. 10. Vitamin B12 500 mcg p.o. daily. 11. Flomax 0.4 mg p.o. daily. 12. Protonix 40 mg p.o. daily. 13. Septra DS one each p.o. b.i.d. for 7 days. FOLLOWUP: [facility]. He did have an appointment for his COUNTERSINKER BALANCE SCREW HOLE shunt on April the . Hopefully, the patient will be able to keep this appointment. The patient is being discharged to [facility]. He can return to the ED for any worsening of symptoms. DISCHARGE TIME: It was 34 minutes. Dictated by SID Ospina for Raghavendra Romero MD MTDD
== END 2016-04-05 18:27 | DRG 871 ==
LOC: EDBD → ED 11:10 → EDIPHOLD 18:36 → 3N 20:05
PROVIDERS: ATTEND Internal Medicine
DX: A41.9 Sepsis, unspecified organism (principal); G93.41 Metabolic encephalopathy; E87.2 Acidosis; G91.2 (Idiopathic) normal pressure hydrocephalus; N39.0 Urinary tract infection, site not specified; T85.09XA Other mechanical complication of ventricular intracranial (communicating) shunt, initial encounter; I25.10 Atherosclerotic heart disease of native coronary artery without angina pectoris; Z95.1 Presence of aortocoronary bypass graft; I10 Essential (primary) hypertension; E78.5 Hyperlipidemia, unspecified; E11.9 Type 2 diabetes mellitus without complications; M19.90 Unspecified osteoarthritis, unspecified site; E66.9 Obesity, unspecified; R32 Unspecified urinary incontinence; R15.9 Full incontinence of feces; R65.20 Severe sepsis without septic shock; B95.62 Methicillin resistant Staphylococcus aureus infection as the cause of diseases classified elsewhere; L53.8 Other specified erythematous conditions; Z86.73 Personal history of transient ischemic attack (TIA), and cerebral infarction without residual deficits; Z99.3 Dependence on wheelchair; Z79.84 Long term (current) use of oral hypoglycemic drugs; Z79.82 Long term (current) use of aspirin; Z79.899 Other long term (current) drug therapy; Z68.30 Body mass index [BMI] 30.0-30.9, adult; Z91.81 History of falling
CPT/HCPCS: 70450; 71010; 80048; 80053; 80202; 81001; 82948; 83036; 83605; 84443; 85025; 87040; 87077; 87088; 87186; 96365; 96367; 96375; C9113; J0696; J2543; J3370; J7030; J7050; S0138; 97110-GP; 97116-GP; S0164

== ENCOUNTER 2016-05-21 17:08 | Inpatient (IN) | payer OTHER ==
[2016-05-21] MEDS ORDERED: NS 1,000 ML IV ONE (17:17)
[2016-05-21] MEDS ORDERED: TYLENOL PR ONE (17:19)
--- NOTE | 2016-05-21 17:34 | PROVIDER DOCUMENTATION ---
HPI-Fever - General Chief Complaint: Altered Mental Status Stated Complaint: AMS Time Seen by Provider: 05/21/16 17:15 Source: patient, family, EMS Allergies/Adverse Reactions: Patient Allergies Allergy/AdvReac Type Severity Reaction Status Date / Time No Known Allergies Allergy Verified 05/21/16 17:47 Home Medications: Home Medication List Medication Instructions Recorded Confirmed Last Taken Type Aspirin [Aspirin EC] 81 mg PO DAILY 04/30/14 05/21/16 05/21/16 08:00 History Citalopram Hydrobromide [Celexa] 20 mg PO HS 04/30/14 05/21/16 05/20/16 20:00 History Finasteride 5 mg PO DAILY 04/30/14 05/21/16 05/21/16 07:00 History Gabapentin 300 mg PO 4XDAY 04/30/14 05/21/16 05/21/16 12:00 History LISINOpril [Prinivil] 5 mg PO DAILY 04/30/14 05/21/16 05/21/16 08:00 History Metformin [Glucophage] 1,000 mg PO BID 04/30/14 05/21/16 05/21/16 08:00 History Multivitamin [Multivitamins] 1 each PO DAILY 04/30/14 05/21/16 05/21/16 08:00 History [place]-3 Fatty Acids/Fish Oil [Fish 1 each PO DAILY 04/30/14 05/21/16 05/21/16 08 :00 History Oil 1,000 mg Softgel] SIMVAstatin [Zocor] 10 mg PO QHS 04/30/14 05/21/16 05/20/16 20:00 History Pantoprazole [Protonix] 40 mg PO DAILY@0700 #30 tablet 05/03/14 05/21/16 08:00 Rx Tamsulosin [Flomax] 0.4 mg PO DAILY #30 capsule 05/03/14 05/21/16 05/21/16 08: 00 Rx Cyanocobalamin (Vitamin B-12) 500 mcg PO DAILY 01/09/16 05/21/16 05/21/16 08:00 History [Vitamin B-12] - History of Present Illness-Fever Nature of Presenting Problem: 80 yom with 104 fever with AMS at home came in by EMS. called EMS due to AMS with possible UTI. Pt ahs been confused for most of the day. No CVA symptoms noted. Pt does have a rectal temp of 102.3 on arrival. Pt is A/Ox3. Pt able to follow commands. Pt denies any pain or symptoms at this time. Fever Severity/Quality: reports: greater than 102 F Onset/Duration: reports: this morning. denies: unsure, abrupt, gradual, just prior to arrival, 1/2 hour ago, 1 hour ago, 1-3 hours ago, 4-6 hours ago, 24 hours ago, 2 days ago, 3 days ago, 4 days ago, 5 days ago, 6 days ago, 1 week ago, last week, this afternoon, this evening, last night, other Timing: reports: getting worse. denies: still present, improving, gone now, resolved prior to arrival, intermittent, constant, changing over time, other Severity: reports: moderate. denies: mild, severe Context: reports: decreased mental status. denies: none, HIV/AIDS, confusion, from custodial, indwelling CVC, indwelling thomason, ESRD-dialysis, decubitus ulcers, cancer-chemotherapy, cancer-neutropenia, other Recent Illness?: reports: none. denies: pneumonia, UTI, MRSA, C. Diff, other Cognitive Baseline: alert, oriented x3 Modifying Factors: improves with: nothing. worse with: analgesics, antacids, breathing, cold/heat therapy, coughing, defecating, eating, exercise, immobilization, lying down, massage, movement, other medication, palpation, rest , urinating, vomiting, other Associated Symptoms: reports: denies symptoms. denies: anxiety, arm pain, back/ neck pain, chest pain, constipation, cough, diaphoresis, diarrhea, dizziness, EENT symptoms, fatigue, fever/chills, genitourinary problems, headaches, heartburn, joint pain, loss of appetite, malaise, muscle aches, sinus congestion /drainage, nausea, rash, seizure, shortness of breath, sensory/motor loss, pain with inspiration, swelling/mass in abdomen, syncope, vomiting, weakness, trouble walking, other Similar Symptoms Previously?: No Recently seen or treated by another doctor?: No - Glascow Coma Score Best Eye Response (Bhumika): (4) open spontaneously Best Verbal Response (Bhumika): (4) confused conversation Best Motor Response (Kitzmiller): (6) obeys commands Kitzmiller Total: 14 Review of Systems - Adult - REVIEW OF SYSTEMS - ADULT ROS:: ROS per family Constitutional: reports: see HPI, fever. denies: no symptoms reported, chills, fatique, night sweats, weight gain, weight loss, other Eyes: reports: no symptoms reported. denies: see HPI, discharge, dry eyes, decreased vision, blurred vision, double vision, eye pain, redness, other Ears, Nose, Mouth & Throat: reports: no symptoms reported. denies: see HPI, ear discharge, ear pain, hearing loss, tinnitus, epistaxis, sinus problem, nose pain, loose teeth, mouth/dental pain, mouth swelling, hoarseness, throat pain, throat swelling, other Cardiovascular: reports: no symptoms reported. denies: see HPI, chest pain, edema, heart murmur, irregular heart rate, orthopnea, palpitations, poor circulation, PND, syncope, other Respiratory: reports: no symptoms reported. denies: see HPI, chronic cough, cough, dyspnea on exertion, excessive sputum production, hemoptysis, pleurisy, shortness of breath, wheezing, other Genitourinary: reports: no symptoms reported. denies: see HPI, dysuria, discharge, frequency, flank pain, frequent UTI's, hematuria, hesitency, incontinence, urinary retention, urgency, other Musculoskeletal: reports: no symptoms reported Neurological: reports: no symptoms reported. denies: see HPI, ataxia, dizziness /vertigo, headache/migraines, loss of balance, numbness, paresthesia, seizure, slurred speech, syncope, tremors, other Psychiatric: reports: no symptoms reported. denies: see HPI, anxiety, anti- depressant use, alcohol/drug dependence, depression, emotional problems, insomnia, panic attacks, suicidal thoughts, other Endocrine: reports: no symptoms reported. denies: see HPI, change in skin pigment, excessive sweating, goiter, cold intolerance, heat intolerance, increased hunger, increased thirst, polyuria, other Hematologic/Lymphatic: reports: no symptoms reported. denies: see HPI, blood clots, easy bruising, low blood count, lymphedema, prolonged bleeding, swollen lymph nodes, transfusions, other Allergic/Immunologic: reports: no symptoms reported. denies: see HPI, allergic reactions, allergic rhinitis, asthma, eczema, food allergy, frequent infections , hay fever, hives, positive PPD, urticaria, other All Other Systems: Reviewed and Negative Past History - Adult - PAST MEDICAL HISTORY-ADULT Review of Records: reports: Old Records Reviewed, Nursing Assessment Review, Medications Reviewed, Social history reviewed & non-contributory. Cardiovascular: reports: CAD, HTN, hyperlipidemia, PA Genitourinary: reports: kidney stones Neurological: reports: TIA, other (NPH/shunt) Endocrine/Immune: reports: Diabetes, thyroid disorder - PRIOR SURGERIES/PROCEDURES Surgical/Procedure History: reports: CABG, cardiac stent (x2), orthopedic ( extremity) - IMMUNIZATION STATUS Childhood Immunizations: See Nurse Assessment Flu Vaccine: See Nurse Assessment - FAMILY HISTORY Family History: reviewed, not pertinent Physical Exam-General - PHYSICAL EXAM-ADULT Initial Vital Signs Reviewed: Yes - CONSTITUTIONAL General Appearance: appears well, alert, no apparent distress. negative: mild distress, moderate distress, severe distress, cachetic, obese, thin, anxious, lethargic, slow to respond, obtunded, combative, other - EYES Eyes: PERRL/EOMI, pink conjunctivae. negative: fundi clear, no AV nicking, anisocoria, conjuctival exudate, EOM palsy, meningismus, pale conjunctivae, photophobia, sclera injected, scleral icterus, subconjunctival hemorrhage, sunken eyes, other - HEAD, EARS, NOSE, MOUTH & THROAT HENMT: normocephalic/atraumatic, moist mucous membranes, normal ENT inspection, TMs normal, pharynx normal. negative: angioedema, dental decay, hearing deficit , pharyngeal erythema, tonsillar exudate, TM abnormal, TM obscurred by cerumen, frontal tenderness, maxillary tenderness, other - NECK Neck: non-tender, full range of motion, supple, normal inspection. negative: Brudzinski's sign, carotid bruit, C-spine tenderness, limited range of motion, lymphadenopathy, meningismus, trachial deviation, tender lateral, tender midline , thyromegaly, other - RESPIRATORY Respiratory: chest non-tender, lungs clear, normal breath sounds, no pleuratic chest pain, no respiratory distress, no accessory muscle use. negative: respiratory distress, decreased breath sounds, accessory muscle use, crackles, rales, rhonchi, stridor, wheezing, dull on percussion, prolonged expiration, pain on inspiration, plerual rub, retractions, splinting, decreased rate, increased rate, crepitus, other - CARDIOVASCULAR Cardiovascular: normal peripheral pulses, regular rate, rhythm, no edema, no gallop, no JVD, no murmur. negative: JVD, bradycardia, tachycardia, diastolic murmur, systolic murmur, gallop/S3, gallop/S4, extra beats, friction rub, irregularly irregular, PMI displaced laterally, other - CHEST (BREASTS) Chest/Breast: deferred. negative: normal breast inspection, no masses/lumps, no tenderness, nipple discharge, tenderness, mass/lump noted, other - GASTROINTESTINAL (ABDOMEN) Abdominal Exam: normal bowel sounds, non tender, soft, no organomegaly, no pulsatile mass. negative: abdominal bruit, abnormal bowel sounds, distended, guarding, rigid, rebound, tenderness, hernia, mass, hepatomegaly, spleenomegaly , McBurney's point tenderness, Jones's sign, obturator sign, prominent aortic pulsations, psoas, Rovsing's sign, other - GENITOURINARY Female Genitalia/Pelvic Exam: negative: deferred, external exam normal, speculum exam normal, bimanual exam normal, no cerv. motion tender, no masses, active bleeding, blood, cervicitis, discharge, herpes-like ulcerations, lesions , mass, tender w/ cervical motion, tender adnexa, tender uterus, ulcers, other Male Genitalia: deferred. negative: normal genitalia, normal prostate, no hernia, erythema, circumcised, uncircumcised, epididymal tenderness, herpes- like lesion, hernia mass, hydrocele, inguinal lymphadenopathy, scrotal swelling , urethral discharge, inguinal tenderness, testicular tenderness, other Rectal Exam: deferred. negative: normal exam, normal rectal tone, black stool, blood streaked stool, decreased tone, hemorrhoids, mass, prostate enlarged/ nodule, tenderness, other Hemoccult Exam: deferred - LYMPHATIC Lymphatic: no adenopathy. negative: axilla node tender, cervical node tenderness, inguinal node tender, enlargement, striations, streaking, other - MUSCULOSKELETAL Back Exam: normal inspection, no CVA tenderness, no vertebral tenderness. negative: CVA tenderness, decreased range of motion, ecchymosis, kyphosis, lordosis, muscle spasm, scoliosis, swelling, vertebral tenderness, other Extremity: normal range of motion, non-tender, normal gait, normal inspection, no pedal edema, no calf tenderness, normal capillary refill. negative: pelvis stable, abnormal NV exam, calf tenderness, deformity, erythema, inflammation, joint effusion, pulse deficit, pedal edema, slow capillary refill, swelling, tenderness, other - SKIN Integumentary: normal color, normal turgor, warm/dry. negative: abrasion(s), blanching, cyanosis, diaphoresis, decubitus, dependent lividity, ecchymosis, embolic lesions, erythema, signs of IVDA, jaundice, laceration(s), mottled, pallor, petechiae, purpura, rash, swelling, tenderness, warm, zoster-like rash, other - NEUROLOGIC Neurologic: grossly normal, no motor/sensory deficits. negative: concentrator operator II-XII nml as tested, abnormal cerebellar tests, abnormal concentrator operator II-XII, abnormal gait, aphasia, EOM palsy, facial droop, focal weakness, motor weakness, sensory deficit, negative romberg's sign, positive romberg's sign, other - PSYCHIATRIC Psych/Mental Status: normal mood/affect, normal thought content, normal thought process. negative: oriented x 3, disoriented x 3, anxious, disheveled, depressed affect, paranoid, tearful, other Progress - PLAN OF CARE/RESULTS Progress/Plan/Lab Results: Laboratory Tests 05/21/16 05/21/16 05/21/16 17:20 17:20 17:20 WBC 10.18 RBC 4.20 L Hgb 12.1 L Hct 38.3 L MCV 91.2 MCH 28.8 MCHC 31.6 L RDW Std Deviation 15.4 H Plt Count 342 MPV 10.2 Immature Gran % (Auto) 0.3 Neut % (Auto) 81.6 H Lymph % (Auto) 8.0 L [place] % (Auto) 8.8 Eos % (Auto) 1.1 Baso % (Auto) 0.2 Immature Gran # (Auto) 0.03 Neut # (Auto) 8.31 H Lymph # (Auto) 0.81 L [place] # (Auto) 0.90 H Eos # (Auto) 0.11 Baso # (Auto) 0.02 Sodium 136 Potassium 4.8 Chloride 96 L Carbon Dioxide 23 L Anion Gap 17 BUN 23 H Creatinine 1.1 Estimated GFR/1.73 m2 > 60 BUN/Creatinine Ratio 21 Glucose 155 H Calculated Osmolality 279 Calcium 9.6 Total Bilirubin 0.15 L AST 15 ALT 13 Alkaline Phosphatase 62 Total Protein 7.2 Albumin 3.9 Globulin 3.3 Albumin/Globulin Ratio 1.2 Plasma Lactate 2.4 H Urine Source Urine Color Urine Turbidity Urine pH Ur Specific Luck Urine Protein Ur Glucose (Stick) Ur Ketones (Stick) Urine Blood Urine Nitrite Urine Bilirubin Urobilinogen Dipstick Urine Leukocytes Urine WBC (Auto) Urine RBC (Auto) U Epithel Cells (Auto) Urine Bacteria (Auto) 05/21/16 19:35 WBC RBC Hgb Hct MCV MCH MCHC RDW Std Deviation Plt Count MPV Immature Gran % (Auto) Neut % (Auto) Lymph % (Auto) [place] % (Auto) Eos % (Auto) Baso % (Auto) Immature Gran # (Auto) Neut # (Auto) Lymph # (Auto) [place] # (Auto) Eos # (Auto) Baso # (Auto) Sodium Potassium Chloride Carbon Dioxide Anion Gap BUN Creatinine Estimated GFR/1.73 m2 BUN/Creatinine Ratio Glucose Calculated Osmolality Calcium Total Bilirubin AST ALT Alkaline Phosphatase Total Protein Albumin Globulin Albumin/Globulin Ratio Plasma Lactate Urine Source CLEAN CATCH Urine Color YELLOW Urine Turbidity HAZY Urine pH 5.0 Ur Specific Luck 1.018 Urine Protein 30 A Ur Glucose (Stick) NEGATIVE Ur Ketones (Stick) TRACE A Urine Blood SMALL A Urine Nitrite NEGATIVE Urine Bilirubin NEGATIVE Urobilinogen Dipstick NORMAL Urine Leukocytes LARGE A Urine WBC (Auto) TNTC A Urine RBC (Auto) <10 U Epithel Cells (Auto) <10 Urine Bacteria (Auto) 1+ Orders Category Date Time Status FSBS [Finger Stick Blood Sugar (ED)] DIRECTED Care 05/21/16 17:27 Active Saline Loc NOW Care 05/21/16 17:18 Active CHEST-PORTABLE [RAD] Stat Exams 05/21/16 17:18 Taken BLOOD CULTURE [BLDCUL] Stat Lab 05/21/16 17:35 Results CBC WITH DIFF [HEME] Stat Lab 05/21/16 17:20 Completed COMPREHENSIVE METABOLIC PANEL [CHEM] Stat Lab 05/21/16 17:20 Completed INFLUENZA SCREEN A/B Stat Lab 05/21/16 17:36 Completed LACTATE, PLASMA [CHEM] Stat Lab 05/21/16 17:20 Completed LACTATE, PLASMA [CHEM] Timed Lab 05/21/16 21:00 Uncollected URINALYSIS W/POSS RFLX CULT [URINALYSIS] Stat Lab 05/21/16 19:35 Results URINE CULTURE [RM] Routine Lab 05/21/16 20:36 Received URINE MANUAL MICROSCOPIC [URINALYSIS] Stat Lab 05/21/16 19:35 Results 0.9% Sodium Chloride Inj [Ns] 1,000 ml Med 05/21/16 17:17 Discontinued IV 999 mls/hr Acetaminophen [Tylenol] Med 05/21/16 17:19 Discontinued 650 mg MD NOW ONE Piperacil/Tazobact 3.375 gm/Ns [Zosyn 3.375 gm/Ns] 50 Med 05/21/16 18:53 Discontinued ml IV NOW Vancomycin 1 gm/Ns 250 ml Med 05/21/16 18:53 Discontinued IV NOW Pulse Oximetry Stat Oth 05/21/16 17:18 Active Vital Signs Temp Pulse Resp BP Pulse Ox 05/21/16 18:36 88 21 145/71 95 05/21/16 17:34 85 31 H 131/66 93 L 05/21/16 17:33 102.5 F H 82 31 H 162/65 82 L No Known Allergies Allergy (Verified 05/21/16 17:47) Aspirin [Aspirin EC] 81 mg PO DAILY 04/30/14 Citalopram Hydrobromide [Celexa] 20 mg PO HS 04/30/14 Finasteride 5 mg PO DAILY 04/30/14 Gabapentin 300 mg PO 4XDAY 04/30/14 LISINOpril [Prinivil] 5 mg PO DAILY 04/30/14 Metformin [Glucophage] 1,000 mg PO BID 04/30/14 Multivitamin [Multivitamins] 1 each PO DAILY 04/30/14 [place]-3 Fatty Acids/Fish Oil [Fish Oil 1,000 mg Softgel] 1 each PO DAILY SIMVAstatin [Zocor] 10 mg PO QHS 04/30/14 Pantoprazole [Protonix] 40 mg PO DAILY@0700 #30 tablet 05/03/14 Tamsulosin [Flomax] 0.4 mg PO DAILY #30 capsule 05/03/14 Cyanocobalamin (Vitamin B-12) [Vitamin B-12] 500 mcg PO DAILY 01/09/16 I&O 05/20/16 05/21/16 05/22/16 06:59 06:59 06:59 Intake Total 250 Balance 250 Laboratory 05/21/16 05/21/16 05/21/16 19:35 17:20 17:20 WBC 10.18 RBC 4.20 L Hgb 12.1 L Hct 38.3 L MCV 91.2 MCH 28.8 MCHC 31.6 L RDW Std Deviation 15.4 H Plt Count 342 MPV 10.2 Immature Gran % (Auto) 0.3 Neut % (Auto) 81.6 H Lymph % (Auto) 8.0 L [place] % (Auto) 8.8 Eos % (Auto) 1.1 Baso % (Auto) 0.2 Immature Gran # (Auto) 0.03 Neut # (Auto) 8.31 H Lymph # (Auto) 0.81 L [place] # (Auto) 0.90 H Eos # (Auto) 0.11 Baso # (Auto) 0.02 Sodium 136 Potassium 4.8 Chloride 96 L Carbon Dioxide 23 L Anion Gap 17 BUN 23 H Creatinine 1.1 Estimated GFR/1.73 m2 > 60 BUN/Creatinine Ratio 21 Glucose 155 H Calculated Osmolality 279 Calcium 9.6 Total Bilirubin 0.15 L AST 15 ALT 13 Alkaline Phosphatase 62 Total Protein 7.2 Albumin 3.9 Globulin 3.3 Albumin/Globulin Ratio 1.2 Plasma Lactate Urine Source CLEAN CATCH Urine Color YELLOW Urine Turbidity HAZY Urine pH 5.0 Ur Specific [place] 1.018 Urine Protein 30 A Ur Glucose (Stick) NEGATIVE Ur Ketones (Stick) TRACE A Urine Blood SMALL A Urine Nitrite NEGATIVE Urine Bilirubin NEGATIVE Urobilinogen Dipstick NORMAL Urine Leukocytes LARGE A Urine WBC (Auto) TNTC A Urine RBC (Auto) <10 U Epithel Cells (Auto) <10 Urine Bacteria (Auto) 1+ 05/21/16 17:20 WBC RBC Hgb Hct MCV MCH MCHC RDW Std Deviation Plt Count MPV Immature Gran % (Auto) Neut % (Auto) Lymph % (Auto) [place] % (Auto) Eos % (Auto) Baso % (Auto) Immature Gran # (Auto) Neut # (Auto) Lymph # (Auto) [place] # (Auto) Eos # (Auto) Baso # (Auto) Sodium Potassium Chloride Carbon Dioxide Anion Gap BUN Creatinine Estimated GFR/1.73 m2 BUN/Creatinine Ratio Glucose Calculated Osmolality Calcium Total Bilirubin AST ALT Alkaline Phosphatase Total Protein Albumin Globulin Albumin/Globulin Ratio Plasma Lactate 2.4 H Urine Source Urine Color Urine Turbidity Urine pH Ur Specific Luck Urine Protein Ur Glucose (Stick) Ur Ketones (Stick) Urine Blood Urine Nitrite Urine Bilirubin Urobilinogen Dipstick Urine Leukocytes Urine WBC (Auto) Urine RBC (Auto) U Epithel Cells (Auto) Urine Bacteria (Auto) - XRAY 1 XRAY Study: Chest Impression: Normal Comparison with other Films: no changes XRAY Interpretation: Normal chest maybe some slight congestion per Dr. Acosta - CONSULTS/PCP/HOSPITALIST Notification #1 *Consult/PCP/Hospitalist*: [facility] Time Discussed: 20:45 (no bed available will call hospitalists here) Reason/Comments: Possible transfer for Urosepsis #2 Consult: Hospitalist ([place]) Time Discussed: 20:49 Reason/Comments: Urosepsis Consult Disposition: Admit Departure - Departure Time of Disposition Order: 20:48 DIAGNOSIS: Sepsis due to urinary tract infection UTI (urinary tract infection) Qualifiers: Urinary tract infection type: site unspecified Hematuria presence: without hematuria Qualified Code(s): N39.0 - Urinary tract infection, site not specified Disposition: ADMITTED INPATIENT 09 Certified Medical Emergency: Emergent Condition: Stable Referrals: None,PCP [Primary Care Provider] - Attestation - Physician/ GISEL Attestation Patient care was provided by Advanced Practice Provider:: Yes Advanced Practice Provider:: John García Advanced Practice Provider documentation review:: The Mid-level provider documentation, treatment plan and medical decision making was reviewed by the physician who agrees with all treatment and medical decision making by the MLP.
[2016-05-21 18:04] LABS: MANUAL DIFF NEEDED? NO
[2016-05-21 18:10] LABS: BASO% 0.2 % (0.0-0.8); EOS# 0.11 X1000 (0.0-0.7); EOS% 1.1 % (0.0-10.0); HEMATOCRIT 38.3 % (42.0-52.0); HEMOGLOBIN 12.1 g/dL (14.0-18.0); IMM GRAN# 0.03 X1000 (0.0-0.04); IMM GRAN% 0.3 % (0.0-0.5); LYMPH# 0.81 X1000 (1.2-3.4); MCH 28.8 PG (27-31); MCHC 31.6 g/dL (33-37); MCV 91.2 FL (81-99); MONO% 8.8 % (1.7-9.3); MPV 10.2 FL (7.4-10.4); NEUT% 81.6 % (42.2-75.2); PLT 342 X1000 (130-400)
[2016-05-21] MEDS ORDERED: ZOSYN 3.375 GM/NS 50 ML IV ONE (18:53)
[2016-05-21] MEDS ORDERED: VANCOMYCIN 1 GM/NS 250 ML IV ONE (18:53)
[2016-05-21 18:54] LABS: AGAP 17; ALBUMIN 3.9 g/dL (3.5-5.0); BUN 23 mg/dL (8-22); CALCIUM 9.6 mg/dL (8.8-10.2); GOT 15 U/L (10-34); TCO2 23 mmol/L (25-35)
[2016-05-21 19:05] LABS: ALKALINE PHOSPHATASE 62 U/L (32-122); CHLORIDE 96 mmol/L (98-107); COSMO 279; GPT 13 U/L (10-44); POTASSIUM 4.8 mmol/L (3.5-5.1); SODIUM 136 mmol/L (136-145); TOTAL BILIRUBIN 0.15 mg/dL (0.20-1.00); TOTAL PROTEIN 7.2 g/dL (6.3-8.3)
[2016-05-21 20:03] LABS: URINE SOURCE CLEAN CATCH
[2016-05-21 20:10] LABS: BILIRUBIN URINE NEGATIVE (NEGATIVE); BLOOD URINE SMALL (NEGATIVE); COLOR YELLOW; GLUCOSE URINE NEGATIVE (NEGATIVE); LEUKOCYTES URINE LARGE (NEGATIVE); NITRITE URINE NEGATIVE (NEGATIVE); PROTEIN URINE 30 mg/dL (NEGATIVE); SP GRAVITY URINE 1.018; TURBIDITY URINE HAZY (CLEAR); UROBILINOGEN URINE NORMAL (NORMAL)
[2016-05-21 20:29] LABS: URINE MICRO REVIEW NEEDED? YES
[2016-05-21 20:36] LABS: UR EPITHELIAL CELLS <10 /HPF (<10); URINE BACTERIA 1+ /HPF; URINE CULTURE NEEDED? YES; URINE RBC <10 /HPF (<10); URINE WBC TNTC /HPF (<10)
[2016-05-21] MEDS ORDERED: TYLENOL PO PRN (21:18)
[2016-05-21] MEDS ORDERED: ZOFRAN IV PRN (21:18)
[2016-05-21 23:44] LABS: INR 0.96; PROTIME 10.2 Seconds (9.2-11.7); PTT 25.8 Seconds (22.0-36.0)
[2016-05-22] MEDS ORDERED: LOVENOX SUBQ SCH (01:00)
[2016-05-22] MEDS ORDERED: VANCOMYCIN IV PER PHARMACY MISC SCH ×2 (01:30→02:09)
[2016-05-22 01:58] LABS: MANUAL DIFF NEEDED? NO
[2016-05-22 01:59] LABS: BASO% 0.2 % (0.0-0.8); EOS# 0.04 X1000 (0.0-0.7); EOS% 0.5 % (0.0-10.0); HEMATOCRIT 35.1 % (42.0-52.0); HEMOGLOBIN 11.3 g/dL (14.0-18.0); IMM GRAN# 0.02 X1000 (0.0-0.04); IMM GRAN% 0.2 % (0.0-0.5); LYMPH# 0.63 X1000 (1.2-3.4); LYMPH% 7.5 % (20.5-51.1); MCH 29.1 PG (27-31); MCHC 32.2 g/dL (33-37); MCV 90.5 FL (81-99); MONO# 0.95 X1000 (0.11-0.59); MONO% 11.3 % (1.7-9.3); MPV 8.7 FL (7.4-10.4); NEUT% 80.3 % (42.2-75.2); PLT 282 X1000 (130-400); RBC 3.88 XMIL (4.7-6.1)
[2016-05-22] MEDS ORDERED: NS 1,000 ML IV SCH (02:00)
[2016-05-22] MEDS ORDERED: VANCOMYCIN 1 GM/NS 250 ML IV ONE (03:00)
[2016-05-22] MEDS: ROCEPHIN 1 GM/NS 50 ML IV SCH ×2 (03:10→23:57)
[2016-05-22 03:39] LABS: URINE SOURCE CATH
[2016-05-22 03:47] LABS: BILIRUBIN URINE NEGATIVE (NEGATIVE); BLOOD URINE SMALL (NEGATIVE); COLOR YELLOW; GLUCOSE URINE NEGATIVE (NEGATIVE); LEUKOCYTES URINE LARGE (NEGATIVE); NITRITE URINE NEGATIVE (NEGATIVE); PH URINE 5.5; PROTEIN URINE 50 mg/dL (NEGATIVE); SP GRAVITY URINE 1.019; TURBIDITY URINE HAZY (CLEAR); UROBILINOGEN URINE NORMAL (NORMAL)
[2016-05-22 03:49] LABS: URINE MICRO REVIEW NEEDED? YES
--- NOTE | 2016-05-22 04:05 | HISTORY AND PHYSICAL ---
DATE AND TIME OF HISTORY AND PHYSICAL: May 21, 2016 at 2330. PRIMARY CARE PROVIDER: Dr. Staley at the [facility] in [place]. HISTORY OF PRESENT ILLNESS: Mr. Martinez is an 80-year-old male with a history of coronary artery disease status post CABG, normal pressure hydrocephalus status post GEM STONE CUTTER shunt placement, hypertension, dyslipidemia, diabetes mellitus type 2, and a recent history and admission for sepsis secondary to a urinary tract infection. The patient was discharged on April 05, 2016. He was discharged to a rehab facility by the name of [facility]. The patient during this admission was diagnosed with sepsis secondary to a methicillin- resistant Staphylococcus aureus urinary tract infection. He was sent to rehab with oral Septra DS for which he has completed at this time. Patient at this time is back home and is living with his . He does have Home Health that comes out and helps him during the week. His reports that he has a physical therapist, bath aide and a nurse that come out weekly to help with his care. The patient as well as his report that over the past 2 to 3 days that he has become more weak and since returning home from rehab he has been able to use his walker though he can only walk short distances. For example, 15 to 20 steps with his walker though the past few days he has not been able to even get up. She also reports that he has had low abdominal pain as well as low back pain, dysuria, increased problems with urinary retention, and fever. She reports that earlier today that she did notice an acute change in his mental status where he was "talking out of his head and not making sense." His does report that the patient does have some mild dementia though is normally able to state who he is and where he is though during this time this was a change from his baseline. The patient's also states that patient has had some recent problems with his GEM STONE CUTTER shunt and did see Dr. Jacobo for this and he did adjust his shunt and she is supposed to return back with him for a followup appointment. She also reports that during his stay at rehab that he has developed a left heel pressure ulcer as well. The patient at this time denied any headache though did report some dizziness over the last day or two. He denies any chest pain, shortness of breath, and at present does not wear any home O2. His did report that during a recent admission to [facility] back in February of 2016 that he was discharged and was supposed to be placed on [facility] oxygen [facility] this though the patient did arrive with an O2 saturation of 82% on room air tonight. With nasal cannula at 2 L, this did increase to 96% and the patient is in no acute distress. We will inquire and look into having the patient possibly placed back on home O2 oxygen upon discharge. Upon evaluation in the ER, the patient initially presented to the ER with a temperature of 102.5. This was treated with Tylenol and has since reduced. He did have initial lactate of 2.4 though with a normal saline 1 L bolus this has reduced to 1 with a redraw check. Patient's urinalysis did show trace ketones, small blood, large leukocytes, too numerous to count white blood cells, and 1-plus bacteria. Urine culture has been placed at this time. At this time , the patient is awake and alert and is interactive with me during his assessment though he is only alert and oriented to person and place. The patient did state that he thought he was at [facility] and that the month was August though since his arrival to the ER the patient's mental condition has improved and we will continue to follow this as well. At this time, we will admit the patient for further treatment and evaluation of his sepsis and urinary tract infection. REVIEW OF SYSTEMS: A 14-point review of systems was conducted with the patient and all were negative except for pertinent positives mentioned in above HPI. PAST MEDICAL HISTORY: 1. Coronary artery disease status post CABG. 2. History of CVA. 3. Normal pressure hydrocephalus status post GEM STONE CUTTER shunt placement. 4. Hypertension. 5. Dyslipidemia. 6. Diabetes mellitus type 2. 7. Obesity with a BMI of 29. 8. History of fecal and urinary incontinence. 9. Prostate problems. PAST SURGICAL HISTORY: 1. Coronary artery bypass graft in 1999. 2. GEM STONE CUTTER shunt implementation. SOCIAL HISTORY: It does appear according to past medical documentation that the patient over the past month or two prior to previous admission was wheelchair bound though since being discharged from rehab he has been able to get up and walk short distances with a walker though in the last 2 to 3 days he has become more weak and has not been able to get out of bed. The patient does have a previous tobacco history with smoking approximately 1 pack of cigarettes per day for approximately 50 years though has been quit for several years now. He denies any past or present alcohol or illicit drug use. He is currently living at home with his though does have Home Health that comes out and aids in his care. ALLERGIES: Patient has no known drug allergies. HOME MEDICATIONS: 1. Aspirin 81 mg p.o. daily. 2. Celexa 20 mg p.o. at bedtime. 3. Vitamin B12 of 500 mcg p.o. daily. 4. Finasteride 5 mg p.o. daily. 5. Gabapentin 300 mg p.o. 4 times a day. 6. Lisinopril 5 mg p.o. daily. 7. Metformin 1000 mg p.o. b.i.d. 8. Multivitamin 1 p.o. daily. 9. Fish oil soft gel 1000 mg 1 p.o. daily. 10.Protonix 40 mg p.o. daily. 11.Zocor 10 mg p.o. at bedtime. 12.Flomax 0.4 mg p.o. daily. DIAGNOSTIC DATA: Laboratory results: White blood cell count 10.1. Hemoglobin 12.1. Hematocrit 38.3. Platelet count 342. PT 10.2. INR 0.96. PTT 25.8. Sodium 136. Potassium 4.8. Chloride 96. Bicarbonate 23. BUN 23. Creatinine 1.1. GFR greater than 60. Glucose 155. Calcium 9.6. Liver function tests are within normal limits. Plasma lactate 2.4 with a repeat of 1. Urinalysis was obtained via clean catch, was positive for protein, trace ketones, small blood, large leukocytes, too numerous to count white blood cells, and 1-plus bacteria. EKG shows normal sinus rhythm with possible left atrial enlargement and left axis deviation at a rate of 80, QTc is 403. Portable chest x-ray shows no acute abnormality at this time though we are awaiting the official radiology overread. PHYSICAL EXAMINATION: VITAL SIGNS: Heart rate 74, respirations 18, blood pressure is 125/52, oxygen saturation is 96% nasal cannula at 2 L. GENERAL: Mr. Martinez is a pleasant, elderly, obese male who is resting in the ER stretcher, is in no acute distress. He was awake, alert, and able to answer most questions of his past medical history appropriately though the patient is slightly confused being only alert and oriented to person and place. HEENT: Head is atraumatic, normocephalic. Pupils are equal, round, reactive to light, are 3 mm bilaterally and brisk. EOMs were intact. Subconjunctivae were pink. Oral mucosa is moist. Oropharynx is clear. NECK: Supple. Trachea is midline. No JVD noted. No carotid bruits noted upon auscultation bilaterally. CARDIOVASCULAR: Patient has normal S1, S2. No murmurs, gallops, or rubs appreciated with a regular rate and rhythm. PULMONARY: Patient has symmetrical chest expansion bilaterally. Lung sounds are clear to auscultation in bilateral full mazariegos. ABDOMEN: Soft, nontender. The patient does have a protuberant abdomen noted though the patient and his deny any increased distention. Bowel sounds were present in all 4 quadrants, were normoactive. EXTREMITIES: No cyanosis or edema noted. Pulse, motor, and sensory were intact in all extremities. Radial pulses bilaterally were 3 plus though pedal pulses were difficult to palpate though the posterior tibialis was easily obtained with venous Doppler. Capillary refill is less than 3. INTEGUMENTARY: Patient's skin is pink, warm, dry, and intact. No lesions or sores noted except for the patient does have an approximately [id number] pressure ulcer noted to his left heel that is probable stage 2 and the patient does have area of erythema noted to his sacrum that does appear to be a probable stage 1 pressure ulcer as well. NEUROLOGICAL: Patient is alert and oriented to person and place though not time. Upon assessment, the patient was awake and alert and did follow commands and interact with me during the assessment. Cranial nerves II through XII are grossly intact. ASSESSMENT AND PLAN: 1. Sepsis. This is likely secondary to a urinary tract infection. The patient initially did have a fever as well as sepsis, confusion, decreased oxygen saturation as well as elevated lactate. The patient does have a recent history of being treated for a methicillin- resistant Staphylococcus aureus urinary tract infection so at this time we will continue with vancomycin and Rocephin. A urine culture has been placed and we are awaiting those results at this time. Patient was given initial normal saline fluid bolus of 1 L. We will continue normal saline at 75 mL per hour. Patient's blood pressure at this time has been stable. His lactate as well as his confusion and oxygen saturation have improved since his arrival to the ER. We will continue to monitor him closely. 2. Urinary tract infection. We will continue with treatment as mentioned for number 1. Though we did bladder scan the patient in the ER which did show 197 mL of urine present , a Thomason catheter was placed. The patient's did report that he has had some recent prostate problems and has recently seen a urologist for this and was supposed to follow up with him once the patient was discharged from rehab though has not been able to do so as of yet. 3. Encephalopathy. This is likely secondary to sepsis/infection. We will continue to monitor the patient closely, do q.4 hour neuro checks. The patient's confusion has improved since arriving to the ER though we will continue to follow. 4. Hypertension. We will continue with his home medications. 5. Dyslipidemia. We will continue with his Zocor. 6. Diabetes mellitus type 2. The patient will be placed on lispro low dose sliding scale insulin and we will do pattern fingerstick blood sugars. 7. Pressure ulcer probable stage 2 on the left foot, and pressure sore probable stage 1 on sacrum. We have placed an order for a consult with the wound care nurse and we will await her evaluation and further recommendations. Until then, we have ordered for Mepilex to be applied to these areas and for the patient to be turned q.2 hours as well as his heels floated. The patient will be placed on CIC with telemetry. He will have vital signs per CIC protocol. DVT prophylaxis will be provided with SCDs. GI prophylaxis will be provided with Protonix 40 mg p.o. daily. He will be placed on a diabetic diet. We will continue to monitor him closely. Further orders and recommendations pending hospital course, diagnostic studies, and physician evaluation. CRITICAL CARE TIME: With this patient was approximately 40 minutes. Dictated by SID Gonzalez for Nish Wolfe MD pt examined, uti/sepsis, likely due to retention issues, may need thomason to go home with and gu followup otherwise agree with above APENOT MTDD
[2016-05-22 04:13] LABS: UR EPITHELIAL CELLS <10 /HPF (<10); URINE BACTERIA NEGATIVE /HPF; URINE CULTURE NEEDED? YES; URINE RBC <10 /HPF (<10); URINE WBC TNTC /HPF (<10)
[2016-05-22] MEDS: PROTONIX PO SCH (06:38)
[2016-05-22] MEDS: HUMALOG SUBQ SCH ×4 (06:38→21:16)
[2016-05-22 06:50] LABS: AGAP 12; BUN 17 mg/dL (8-22); CHLORIDE 102 mmol/L (98-107); COSMO 286; POTASSIUM 4.2 mmol/L (3.5-5.1); SODIUM 139 mmol/L (136-145); TCO2 25 mmol/L (25-35)
--- NOTE | 2016-05-22 09:26 | Diag Imaging Result Document ---
PROCEDURE NAME: CHEST-PORTABLE - 05/21/2016 AP PORTABLE CHEST AT 1800 HOURS: FINDINGS: There is some pleural thickening on the left. The inspiration is suboptimal. Compared to 04/05/2016, there has been resolution of the atelectasis in the left upper lobe. Otherwise, the lungs appear to be clearer and better expanded. IMPRESSION: Improved atelectasis.
--- NOTE | 2016-05-22 09:45 | Diag Imaging Result Document ---
PROCEDURE NAME: HEAD W/O CONTRAST - 05/22/2016 CT OF THE HEAD WITHOUT CONTRAST: FINDINGS: There is generalized cerebral atrophy. There is a ventriculoperitoneal shunt catheter with its tip in the right frontal horn. There is persistent ventriculomegaly, however, this has not changed significantly since 03/30/2016. There is no evidence of bleed or abnormal extra-axial fluid collection. There are patchy lucencies throughout the white matter of both hemispheres consistent with chronic microvascular disease. This is also unchanged in appearance since the previous study. There is no evidence of acute bony disease. IMPRESSION: Stable CT of the head.
[2016-05-22] MEDS: FISH OIL CONCENTRATE PO SCH (10:04)
[2016-05-22] MEDS: VITAMIN B-12 PO SCH (10:04)
[2016-05-22] MEDS: FLOMAX PO SCH (10:05)
[2016-05-22] MEDS: ASPIRIN EC PO SCH (10:05)
[2016-05-22] MEDS: PRINIVIL PO SCH (10:05)
[2016-05-22] MEDS: PROSCAR PO SCH (10:05)
[2016-05-22] MEDS: NEURONTIN PO SCH ×4 (10:05→21:15)
[2016-05-22] MEDS: THERA M PLUS PO SCH (10:05)
[2016-05-22] MEDS: HEPARIN SUBQ SCH ×2 (10:06→17:14)
--- NOTE | 2016-05-22 10:59 | PROGRESS NOTE ---
DATE: 05/22/2016 SUBJECTIVE: This patient is lying comfortably on the bed. He is not complaining of pain at this moment. He is still confused. He is oriented just to person. OBJECTIVE: Vital signs: Temperature 98.7 degrees, pulse 72, respiratory rate 18, blood pressure 149/64, oxygen saturation 98% on 2 L of nasal cannula. HEENT: Head normocephalic. No trauma. PERRLA. Neck supple. No JVD. No masses. Central trachea. Cardiovascular: RRR. No murmurs. No gallops or rubs. Chest clear to auscultation. No wheezing. No rales. Abdomen soft, mild tenderness to palpation at the level of the suprapubic area, protuberant, bowel sounds present. Extremities: No edema. No cyanosis. No clubbing. Neurologic: The patient is alert. He is oriented to person. He is not oriented to place or time. He is following commands, and he is tolerating food. LABORATORY DATA: WBC 8.4, hemoglobin 11.3, hematocrit 35.1, platelets 282,000. Sodium 139, potassium 4.2, chloride 102, bicarbonate 25. BUN 17, creatinine 1, glucose 214. Calcium 9. ASSESSMENT AND PLAN: 1. Sepsis. This is getting a little bit better. The vital signs are more stable today. We will continue with IV fluids and antibiotics. This patient is still confused. We will continue to monitor this patient in the CIC unit. 2. Urinary tract infection. This patient is on ceftriaxone. Blood culture and urine culture so far negative. Will continue to monitor. 3. Infectious encephalopathy likely secondary to the urinary tract infection/sepsis. This patient is still confused. We will continue to monitor and do q.4 hours neuro checks. 4. Hypertension. We will continue with the same management. 5. Dyslipidemia. Continue with Zocor. 6. Type 2 diabetes. This patient is on sliding scale insulin and pattern of blood sugar. We will continue to monitor. 7. Pressure ulcer, probably stage IV to stage II on the left foot and stage I at the level of the sacrum. Wound care will be on board pending evaluation and recommendations. Until then, we will continue with the same management. 8. Deep venous thrombosis prophylaxis. I will put this patient on heparin. 9. Gastrointestinal prophylaxis. This patient is on Protonix. CRITICAL CARE TIME: 35 minutes.
[2016-05-22] MEDS ORDERED: ZOCOR PO SCH (21:00)
[2016-05-22] MEDS: CELEXA PO SCH (21:15)
[2016-05-23] MEDS: HEPARIN SUBQ SCH ×4 (02:46→17:40)
[2016-05-23] MEDS ORDERED: LASIX IV ONE (02:52)
[2016-05-23] MEDS: DUONEB (A & A) INH PRN ×4 (03:35→23:36)
[2016-05-23 05:28] LABS: MANUAL DIFF NEEDED? NO
[2016-05-23 05:30] LABS: BASO% 0.2 % (0.0-0.8); EOS# 0.08 X1000 (0.0-0.7); EOS% 0.6 % (0.0-10.0); HEMATOCRIT 37.7 % (42.0-52.0); HEMOGLOBIN 12.2 g/dL (14.0-18.0); IMM GRAN# 0.04 X1000 (0.0-0.04); IMM GRAN% 0.3 % (0.0-0.5); LYMPH# 1.15 X1000 (1.2-3.4); LYMPH% 9.1 % (20.5-51.1); MCHC 32.4 g/dL (33-37); MCV 89.5 FL (81-99); MONO# 1.61 X1000 (0.11-0.59); MONO% 12.7 % (1.7-9.3); MPV 9.4 FL (7.4-10.4); NEUT% 77.1 % (42.2-75.2); PLT 297 X1000 (130-400); RBC 4.21 XMIL (4.7-6.1)
[2016-05-23 05:55] LABS: AGAP 16; ALBUMIN 3.6 g/dL (3.5-5.0); ALKALINE PHOSPHATASE 57 U/L (32-122); BUN 10 mg/dL (8-22); CALCIUM 9.5 mg/dL (8.8-10.2); CHLORIDE 99 mmol/L (98-107); COSMO 283; GOT 20 U/L (10-34); GPT 20 U/L (10-44); POTASSIUM 3.7 mmol/L (3.5-5.1); SODIUM 138 mmol/L (136-145); TCO2 23 mmol/L (25-35); TOTAL PROTEIN 6.9 g/dL (6.3-8.3)
[2016-05-23] MEDS: PROTONIX PO SCH (06:49)
[2016-05-23] MEDS: HUMALOG SUBQ SCH ×4 (06:52→20:46)
--- NOTE | 2016-05-23 07:21 | Diag Imaging Result Document ---
PROCEDURE NAME: CHEST-PORTABLE - 05/23/2016 AP PORTABLE CHEST, 05/23/2016 AT 0500 HOURS: FINDINGS: There is atelectasis in the left upper lobe which was not present on 05/21/2016. Otherwise there has been no appreciable change. IMPRESSION: Left upper lobe atelectasis.
[2016-05-23] MEDS: ASPIRIN EC PO SCH (08:57)
[2016-05-23] MEDS: PRINIVIL PO SCH (08:57)
[2016-05-23] MEDS: PROSCAR PO SCH (08:57)
[2016-05-23] MEDS: FISH OIL CONCENTRATE PO SCH (08:57)
[2016-05-23] MEDS: VITAMIN B-12 PO SCH (08:57)
[2016-05-23] MEDS: FLOMAX PO SCH (08:57)
[2016-05-23] MEDS: NEURONTIN PO SCH ×4 (08:57→20:45)
[2016-05-23] MEDS: THERA M PLUS PO SCH (08:57)
--- NOTE | 2016-05-23 10:40 | PROGRESS NOTE ---
DATE: 05/23/2016 SUBJECTIVE: At the moment of the physical examination, he was sitting on the bed. He looks much better compared with yesterday. He is using a Ventimask today because the oxygen saturation has been dropping to the mid and low 80s but he is not complaining of shortness of breath. This patient has been having recurrent urinary tract infections. I will consult the infectious disease doctor to evaluate this patient. At this moment, this patient is not complaining of belly pain or burning sensation with the urine. As per the , this patient is still a little bit confused. OBJECTIVE: Vital Signs: Temperature 98.7 degrees, pulse 102, respiratory rate 20, blood pressure 134/69, oxygen saturation 96 on a Venturi mask. HEENT: Head normocephalic. No trauma. PERRLA. Neck: Supple. No JVD. No masses. Central trachea. Cardiovascular: RRR. No murmurs. No gallops. No rubs. Chest: Clear to auscultation. No wheezing. No rales. Abdomen: Soft. Mild tenderness to palpation at the level of the suprapubic area. Protuberant. Bowel sounds present. Extremities: No edema. No clubbing. No cyanosis. Neurological Examination: The patient is alert. He is oriented in person, place, and time but as per the , he is still a little bit confused. I do not notice any confusion at this moment. We will continue to monitor. Laboratory: WBC 12.6, hemoglobin 12.2, hematocrit 37.7, platelets 297,000. Sodium 138, potassium 3.7, chloride 99, bicarbonate 23, BUN 10, creatinine 1.1, glucose 247, calcium 9.5. ASSESSMENT AND PLAN: 1. Sepsis. This is getting better. Vital signs are stable except for the oxygen that has been dropping to the mid 80s. I will continue with the Ventimask. This patient, as per the family, is still a little bit confused but compared with yesterday, he is much better. 2. Urinary tract infection. This patient is on ceftriaxone and vancomycin. I will switch the ceftriaxone for Zosyn. I will continue to monitor. So far, the blood culture and urine culture have been negative. We will continue to monitor. I will consult infectious disease department to evaluate this patient. 3. Infectious encephalopathy, likely secondary to urinary tract infection/sepsis. This condition is getting better. We will continue to monitor and do every 4 hour neurological checks. 4. Hypertension. Continue with the same management. 5. Dyslipidemia. Continue with Zocor. 6. Type 2 diabetes. For now, we are going to continue the sliding scale insulin even though the insulin is a little bit higher than 200. Probably tomorrow, I will put this patient on a long acting insulin. 7. Pressure ulcer, probably stage I to stage II on the left foot and stage I at the level of the sacrum. Wound care will be on board. I will wait for recommendations. 8. Deep venous thrombosis prophylaxis. This patient is on heparin. 9. Gastrointestinal prophylaxis. This patient is on Protonix. CRITICAL CARE TIME: 35 minutes.
[2016-05-23] MEDS: ZOSYN 3.375 GM/NS 50 ML IV SCH ×3 (11:25→20:45)
[2016-05-23] MEDS ORDERED: VANCOMYCIN 1,600 MG in NS 250 ML IV SCH (15:00)
[2016-05-23] MEDS ORDERED: CUBICIN (FOR INPATIENT USE) 500 MG in NS 100 ML IV SCH (15:00)
--- NOTE | 2016-05-23 20:05 | CONSULTATION ---
DATE OF CONSULTATION: 05/23/2016 CONCLUSION: The patient is seen for evaluation of recurrent urinary tract infections. His urinalysis now indicates that he does have a urinary tract infection. However, the culture thus far is sterile. In March, he had methicillin-resistant Staph aureus urinary tract infection and this was March 2016 and in April 2014, he had an enterococcal urinary tract infection. I think the patient is predisposed to developing urinary tract infections due to an enlarged prostate causing partial obstruction of the urinary tract. The patient also has decreased hearing. RECOMMENDATIONS: I agree decision to treat the patient with Zosyn pending culture results. I have discontinued vancomycin because the patient has decreased hearing and have placed the patient on instead daptomycin. Also, I have discontinued Lipitor because it along with daptomycin could cause an increased risk of muscle toxicity. I told the patient's once we are done with the daptomycin, then the patient can go back on his Lipitor. I have ordered also a PSA. After the patient's He catheter has been removed I plan to obtain a postvoid residual urine. If the postvoid residual urine shows that there is retention of urine and/or if the patient's PSA is elevated, I plan to consult a urologist unless the patient already is seeing one, in which case I will consult that urologist. DISCUSSION: The patient was very sleepy. He was unable provide a history. The history was taken from a review of the chart and from the patient's . The patient in the past 3 days had increased weakness, fever, altered mental status and dysuria. Three days ago he had some loose stools. He has not had any since then. The patient's CBC shows a white count of 12,650, hemoglobin 12.2, and platelet count 297,000. Creatinine is 1.1. GFR is greater than 60. Liver function studies are normal. Urinalysis shows white cells and bacteria as well as yeast. Swab for influenza was negative. Blood and urine cultures are negative. Chest x-ray shows left upper lobe atelectasis. CT scan of the head shows a ventriculoperitoneal shunt in place. There are bilateral white matter patchy lucencies. PAST MEDICAL HISTORY/REVIEW OF SYSTEMS: Eyes and ears: Patient has decreased hearing, but his vision is okay. Neck: No stiffness. Respiratory: No cough or shortness of breath. Cardiovascular: No chest pain or palpitations. Neurologic: The patient was admitted with an altered mental status. He has also in the past week or so has become very weak. He has not passed out, however. Bones, joints, muscles: No joint swelling or muscle tenderness. The remainder of the patient's review of systems was completed and was negative. PREVIOUS HOSPITALIZATIONS AND OPERATIONS: He has been hospitalized with methicillin-resistant Staph aureus urinary tract infection and enterococcal urinary tract infection. He has had a ICE SCULPTOR shunt placed because of normal pressure hydrocephalus and he has had coronary bypass grafting and a an operation on one of the kidneys. The patient also has hyperlipidemia. MEDICAL DISEASES: Positive for diabetes mellitus, hypertension, myocardial infarction, hyperlipidemia, and dementia. INFECTIOUS DISEASE HISTORY: Positive for UTI. Negative for pneumonia. FAMILY HISTORY: Positive for diabetes mellitus, stroke and gastroesophageal reflux disease. SOCIAL HISTORY[place] is been to his for many years. He stopped smoking cigarettes 15 years ago. He does not drink alcoholic beverages. The patient's has dogs and a cat for pets. PHYSICAL EXAMINATION: Vital Signs: Temperature is 98.7 degrees, pulse 90, respirations 18, blood pressure is 128/63. General: The patient's weight is 180 pounds. General: This is an ill- appearing, elderly male. He is in no acute distress. He appears to be sleeping. Head, eyes, ears, nose and throat: He had did not answer my questions. He did not open his eyes. No drainage noted from the nose or ears. Neck: No meningismus. Lungs: Clear to auscultation. Cardiovascular: Regular heart rate. Abdomen: Soft without masses or tenderness. Neurologic: Patient is lethargic. He did not respond to verbal stimuli. He did not have a tremor. Integument: No rash noted. Thank you for the consult.
[2016-05-23] MEDS: CELEXA PO SCH (20:45)
[2016-05-24] MEDS: HEPARIN SUBQ SCH ×4 (02:36→16:59)
[2016-05-24] MEDS: ZOSYN 3.375 GM/NS 50 ML IV SCH (02:37)
[2016-05-24] MEDS: DUONEB (A & A) INH PRN ×3 (03:38→19:13)
[2016-05-24 05:24] LABS: MANUAL DIFF NEEDED? NO
[2016-05-24 05:29] LABS: BASO% 0.2 % (0.0-0.8); EOS# 0.31 X1000 (0.0-0.7); EOS% 3.7 % (0.0-10.0); HEMATOCRIT 33.1 % (42.0-52.0); HEMOGLOBIN 10.4 g/dL (14.0-18.0); IMM GRAN# 0.02 X1000 (0.0-0.04); IMM GRAN% 0.2 % (0.0-0.5); LYMPH# 1.57 X1000 (1.2-3.4); LYMPH% 18.6 % (20.5-51.1); MCH 28.2 PG (27-31); MCHC 31.4 g/dL (33-37); MCV 89.7 FL (81-99); MONO% 11.8 % (1.7-9.3); MPV 9.6 FL (7.4-10.4); NEUT% 65.5 % (42.2-75.2); PLT 292 X1000 (130-400); RBC 3.69 XMIL (4.7-6.1)
[2016-05-24] MEDS: PROTONIX PO SCH (06:01)
[2016-05-24] MEDS: HUMALOG SUBQ SCH ×4 (06:07→22:20)
[2016-05-24 06:08] LABS: CALCIUM 9.4 mg/dL (8.8-10.2); POTASSIUM 3.7 mmol/L (3.5-5.1)
--- NOTE | 2016-05-24 07:01 | PROGRESS NOTE ---
DATE: 05/24/2016 PRESENT ILLNESS: The patient is being treated for urinary tract infection. His urinalysis indicates that he does have one, however, the 2 separate cultures are sterile. In addition, in the urinalysis, yeast like cells were seen, but nothing is growing on culture as mentioned above. MEDICATIONS: The patient is on a combination of daptomycin and Zosyn. PHYSICAL EXAMINATION: Vital Signs: Temperature is 98.4, pulse 70, respirations 15, blood pressure 111/54. Generally: This is a somewhat ill-appearing, elderly male. He is in no acute distress. Lungs: Clear to auscultation. Cardiovascular: Regular heart rate. Abdomen: Abdomen and flanks soft and nontender. Neurologic: Patient is awake. He can move his extremities but he is weak. Specifically he can flex his knees and there was no marked pain and there is no swelling of the knee or drainage coming from the knee. LAB AND X-RAY: CBC shows a white count of 8460. Hemoglobin 10.4, and platelet count 292,000. Creatinine is 1.2. The GFR is 58. Blood and urine cultures are sterile. ASSESSMENT AND PLAN: I called microbiology and they are going to look and see if they can find any yeast growing and also to see if yeast was actually seen in the urinalysis. I have gone ahead and discontinued daptomycin and Zosyn and have put the patient on Septra. Also, I added back the patient's Zocor that he was taking in the hospital. I have ordered a PSA on the patient, the results of which are pending. Also, once the patient has a He catheter out, I would like to get a bladder scan for postvoid residual urine. COMORBIDITIES: Include he is very elderly. He has diabetes mellitus and has dementia. [facility]
[2016-05-24] MEDS: THERA M PLUS PO SCH (08:39)
[2016-05-24] MEDS: SEPTRA DS PO SCH ×2 (08:39→22:18)
[2016-05-24] MEDS: FLOMAX PO SCH (08:39)
[2016-05-24] MEDS: NEURONTIN PO SCH ×4 (08:39→22:18)
[2016-05-24] MEDS: ASPIRIN EC PO SCH (08:40)
[2016-05-24] MEDS: PRINIVIL PO SCH (08:40)
[2016-05-24] MEDS: VITAMIN B-12 PO SCH (08:40)
[2016-05-24] MEDS: PROSCAR PO SCH (08:40)
[2016-05-24] MEDS: FISH OIL CONCENTRATE PO SCH (08:40)
--- NOTE | 2016-05-24 09:00 | EKG Report ---
Test Performed on : 05/21/2016 5:14:56 PM Test Reason : No Order in [facility] Blood Pressure : / mmHG Vent. Rate : 080 BPM Atrial Rate : 080 BPM P-R Int : 148 ms QRS Dur : 116 ms QT Int : 350 ms P-R-T Axes : 041 -39 074 degrees QTc Int : 403 ms Normal sinus rhythm. Possible Left atrial enlargement Left axis deviation Cannot rule out Inferior infarct , age undetermined Abnormal ECG When compared with ECG of 30-APR-2014 12:32, No significant change was found Unconfirmed Result
--- NOTE | 2016-05-24 17:24 | PROGRESS NOTE ---
DATE: 05/24/2016 SUBJECTIVE: This patient looks better today. He is not complaining of chest pain, shortness of breath, nausea, vomiting, diarrhea, constipation. I think he has a baseline dementia. No family members at the bedside. OBJECTIVE: Vital Signs: Temperature 97.5 degrees, pulse 72, respiratory rate 17, blood pressure 124/58, oxygen saturation 93% on 2 L of nasal cannula. HEENT: Head normocephalic. No trauma. PERRLA. Neck: Supple. No JVD. No masses. Central trachea. Cardiovascular: RRR. No murmurs. No gallops. No rubs. Chest: Clear to auscultation. No wheezing. No rales. Abdomen: Soft. Mild tenderness to palpation at the level of the suprapubic area. Protuberant. Bowel sounds present. Extremities: No edema. No clubbing. No cyanosis. Neurological: The patient is alert. He is oriented in person, place, and time, but I think he has been confused on and off. No confusion at this moment. LABORATORY: WBC 8.4, hemoglobin 10.4, hematocrit 33.1, platelets 292,000. Sodium 137, potassium 3.7, chloride 98, bicarbonate 26, BUN 18, creatinine 1.2, glucose 173, calcium 9.4. ASSESSMENT: 1. Sepsis resolved. The vital signs are stable now. I think this patient has a baseline dementia and he is a little confused on and off but compared with admission, he is much better. 2. Urinary tract infection. This patient has been followed by the infectious disease department. He has a recurrent urinary tract infection. The antibiotics were switched to trimethoprim sulfamethoxazole by Dr. Dee. Blood cultures show yeast. Infectious disease department is taking care of this. 3. Infectious encephalopathy, likely secondary to urinary tract infection/sepsis. This condition is getting better. 4. Hypertension. Continue with the same management. 5. Dyslipidemia. Continue with Zocor. 6. Type 2 diabetes. For now we will continue with sliding scale insulin and pattern blood sugar. 7. Pressure ulcer. Probably stage I to stage II on the left foot and stage I at the level of the sacrum. Wound care is on board. 8. Deep vein thrombosis prophylaxis. This patient is on heparin. 9. Gastrointestinal prophylaxis. This patient is on Protonix. PLAN: Overall, this patient is doing better. Infectious disease department is following this patient. Hopefully we are going to be able to discharge this patient in 2-3 days. I will transfer this patient from the [facility] to the regular floor with telemetry.
[2016-05-24] MEDS: ZOCOR PO SCH (22:19)
[2016-05-24] MEDS: CELEXA PO SCH (22:19)
[2016-05-25] MEDS: HEPARIN SUBQ SCH ×3 (05:58→20:16)
[2016-05-25] MEDS: HUMALOG SUBQ SCH ×4 (05:59→20:26)
[2016-05-25 06:08] LABS: MANUAL DIFF NEEDED? NO
[2016-05-25 06:14] LABS: BASO% 0.3 % (0.0-0.8); EOS# 0.51 X1000 (0.0-0.7); EOS% 6.9 % (0.0-10.0); HEMATOCRIT 32.7 % (42.0-52.0); HEMOGLOBIN 10.3 g/dL (14.0-18.0); IMM GRAN# 0.02 X1000 (0.0-0.04); IMM GRAN% 0.3 % (0.0-0.5); LYMPH# 1.46 X1000 (1.2-3.4); LYMPH% 19.9 % (20.5-51.1); MCH 28.4 PG (27-31); MCHC 31.5 g/dL (33-37); MCV 90.1 FL (81-99); MONO# 0.79 X1000 (0.11-0.59); MONO% 10.7 % (1.7-9.3); MPV 9.4 FL (7.4-10.4); NEUT% 61.9 % (42.2-75.2); PLT 289 X1000 (130-400); RBC 3.63 XMIL (4.7-6.1)
[2016-05-25 06:25] LABS: AGAP 12; BUN 18 mg/dL (8-22); CALCIUM 9.5 mg/dL (8.8-10.2); CHLORIDE 100 mmol/L (98-107); COSMO 284; POTASSIUM 4.2 mmol/L (3.5-5.1); SODIUM 139 mmol/L (136-145); TCO2 27 mmol/L (25-35)
[2016-05-25] MEDS: PROTONIX PO SCH (08:08)
[2016-05-25] MEDS: DUONEB (A & A) INH PRN ×4 (08:23→17:58)
--- NOTE | 2016-05-25 08:43 | PROGRESS NOTE ---
DATE: 05/25/2016 PRESENT ILLNESS: The patient is being treated for urinary tract infection. His urinalysis showed that he did have white blood cells in his urine and his culture did grow yeast. Therefore, I think it is reasonable to assume that the patient has a fungal urinary tract infection. MEDICATION: The patient is on Septra. PHYSICAL EXAMINATION: Vital Signs: Temperature is 98 degrees, pulse 66, respirations 17, blood pressure 126/57. General: This is a chronically ill-appearing, elderly male. He is in no acute distress. Lungs: Clear to auscultation. Cardiovascular: Regular heart rate. Abdomen and flanks: Soft and nontender. Neurologic: The patient is awake. He can move his extremities. Genitalia: He catheter is in place. LAB AND X-RAY: There is no new x-ray. The urine culture, as mentioned above, is growing yeast. Creatinine is 1.1. GFR is greater than 60. The PSA is 0.01. ASSESSMENT AND PLAN: Patient has a fungal urinary tract infection. I am switching him to fluconazole which I plan to give for a total of 14 days. I have ordered that the patient's He catheter should be removed and later today I have requested that a bladder scan be done to make sure that the patient is able to empty his bladder fully. Comorbidities in this patient is that he is very elderly. He has diabetes mellitus and dementia. I have written a prescription electronically for fluconazole for the patient and it is on his chart. I am available to see the patient on a prn basis. MTDD
[2016-05-25] MEDS: THERA M PLUS PO SCH (09:10)
[2016-05-25] MEDS: VITAMIN B-12 PO SCH (09:10)
[2016-05-25] MEDS: FLOMAX PO SCH (09:10)
[2016-05-25] MEDS: NEURONTIN PO SCH ×4 (09:10→20:16)
[2016-05-25] MEDS: PRINIVIL PO SCH (09:10)
[2016-05-25] MEDS: DIFLUCAN PO SCH (09:11)
[2016-05-25] MEDS: PROSCAR PO SCH (09:11)
[2016-05-25] MEDS: FISH OIL CONCENTRATE PO SCH (09:11)
[2016-05-25] MEDS: ASPIRIN EC PO SCH (09:12)
[2016-05-25] MEDS ORDERED: MORPHINE IV PRN (16:17)
--- NOTE | 2016-05-25 16:59 | PROGRESS NOTE ---
DATE: 05/25/2016 SUBJECTIVE: Patient reports feeling fine. No chest pain. No shortness of breath. No fever or chills. OBJECTIVE: Vital Signs: Temperature 97.6 degrees, heart rate 76, respiratory rate 16, blood pressure 120/57, O2 saturation 94% 2 L nasal cannula. General Examination: This is an 80-year- old male, lying in bed, in no acute distress. HEENT: Head is normocephalic, atraumatic. Anicteric sclerae and pale conjunctivae. Mucous membranes moist. Neck: Supple. No JVD noted. No carotid bruits. No lymphadenopathy. No thyromegaly. Cardiovascular: S1, S2 heard. No murmurs, gallops, or rubs. Regular rate and rhythm. Respiratory: Clear bilaterally to auscultation. No work of breathing or using accessory muscles. Abdomen: Soft, nontender to palpation. There is some mild tenderness to palpation of level of the suprapubic area. Bowel sounds present. Extremities: No clubbing, cyanosis, or edema. Peripheral pulses present in both legs. Neurological: Patient alert and oriented x3. Moves 4 extremities. LABORATORY DATA: White cell count 7.35, hemoglobin 10.3, hematocrit 32.7, platelets 289,000. BMP unremarkable except glucose 182. ASSESSMENT/PLAN: 1. Urinary tract infection. That is secondary to a fungal infection. Dr. Dee from Infectious Disease thinks that this patient will need fluconazole for a couple weeks. Prescription has been written by him and he has signed off. 2. Infection encephalopathy. That condition is resolved. 3. Hypertension. We will continue with home medications. 4. Dyslipidemia. We will continue with Zocor. 5. Diabetes type 2. Currently, this patient is on sliding scale insulin and also metformin has been held. I think at this time, we will continue with the same management and metformin will be restarted at discharge. 6. Physical deconditioning. Patient was sent last time to rehab facility and I think this patient is still weak. We will consult physical therapy to see what are their recommendations. If they think that this patient can go with home health will discharge him tomorrow.
[2016-05-25] MEDS: ZOCOR PO SCH (20:16)
[2016-05-26] MEDS: HEPARIN SUBQ SCH ×2 (06:49→15:50)
[2016-05-26] MEDS: HUMALOG SUBQ SCH ×2 (06:50→10:52)
[2016-05-26] MEDS: PROTONIX PO SCH (06:50)
[2016-05-26 07:07] LABS: MANUAL DIFF NEEDED? NO
[2016-05-26 07:19] LABS: BASO% 0.4 % (0.0-0.8); EOS# 0.55 X1000 (0.0-0.7); EOS% 7.9 % (0.0-10.0); HEMATOCRIT 33.5 % (42.0-52.0); HEMOGLOBIN 10.6 g/dL (14.0-18.0); IMM GRAN# 0.04 X1000 (0.0-0.04); IMM GRAN% 0.6 % (0.0-0.5); LYMPH# 1.47 X1000 (1.2-3.4); LYMPH% 21.2 % (20.5-51.1); MCH 28.7 PG (27-31); MCHC 31.6 g/dL (33-37); MCV 90.8 FL (81-99); MONO# 0.62 X1000 (0.11-0.59); MONO% 8.9 % (1.7-9.3); MPV 9.6 FL (7.4-10.4); PLT 316 X1000 (130-400); RBC 3.69 XMIL (4.7-6.1)
[2016-05-26 07:30] VITALS: BP 139/70
[2016-05-26 07:45] LABS: AGAP 12; BUN 17 mg/dL (8-22); CALCIUM 9.7 mg/dL (8.8-10.2); CHLORIDE 100 mmol/L (98-107); COSMO 283; POTASSIUM 4.3 mmol/L (3.5-5.1); SODIUM 139 mmol/L (136-145); TCO2 27 mmol/L (25-35)
[2016-05-26] MEDS: ASPIRIN EC PO SCH (09:49)
[2016-05-26] MEDS: FLOMAX PO SCH (09:50)
[2016-05-26] MEDS: DIFLUCAN PO SCH (09:50)
[2016-05-26] MEDS: FISH OIL CONCENTRATE PO SCH (09:50)
[2016-05-26] MEDS: PRINIVIL PO SCH (09:51)
[2016-05-26] MEDS: PROSCAR PO SCH (09:51)
[2016-05-26] MEDS: NEURONTIN PO SCH ×2 (09:51→13:27)
[2016-05-26] MEDS: THERA M PLUS PO SCH (09:52)
[2016-05-26] MEDS: VITAMIN B-12 PO SCH (09:53)
[2016-05-26] MEDS ORDERED: CALMOSEPTINE OINTMENT TOP PRN (12:42)
--- NOTE | 2016-05-27 04:37 | DISCHARGE SUMMARY ---
ADMISSION DATE: 05/21/2016 DISCHARGE DATE: 05/26/2016 CONSULTATIONS: Eder Dee MD with Infectious Disease. PERTINENT PROCEDURES: 1. Head CT was stable. 2. Urine culture grew out yeast. DISCHARGE DIAGNOSES: 1. Urinary tract infection secondary to fungal infection. The patient will go home on 2 weeks of Diflucan. 2. Infectious encephalopathy, resolved. 3. Hypertension. Continue home medications. 4. Dyslipidemia. Continue Zocor. 5. Diabetes mellitus type 2. Continue with patient's home medications. 6. Physical deconditioning. Patient is going home with home health and physical therapy. HOSPITAL COURSE: Briefly, Mr. Martinez is an 80-year-old male with a history of coronary artery disease status post CABG, normal-pressure hydrocephalus, status post [employer] shunt placement, hypertension, dyslipidemia, diabetes mellitus type 2, recent history and admission for sepsis secondary to UTI. Patient was discharged on 04/05/2016 to a rehab facility at [facility]. Patient, during that admission, was diagnosed with sepsis secondary to MRSA UTI. He was sent to rehab with oral Septra that he had completed. Patient did go back home. He was living with his . He did have home health that was coming out during the week along with the physical therapist, bath aide and a nurse who comes out weekly to help with his care. Over the past 2-3 days prior to admission, the patient became more weak and was having to use a walker, although he can only walk short distances. Then, the started noticing a mental status change. He was "talking out of his head and not making sense." Evaluation in the ED showed a temperature of 102.5 degrees. He had an initial lactate of 2.4 with normal saline and it was reduced to 1 with a recheck. Patient's urinalysis showed trace ketones, small blood, large leukocytes, too-numerous- to-count white blood cells, 1+ bacteria. Urine culture was sent off. The patient was admitted to [facility] and continued on IV antibiotics, as well as IV fluids with frequent neurological checks secondary to the infectious encephalopathy. Dr. Dee was consulted. Patient' s IV antibiotics were changed to Zosyn pending the culture results. The patient's sepsis did resolve. The patient's encephalopathy continued to improve each day. Overall, the patient was doing better. He was moved out of [facility] to the regular floor. Patient's urine culture grew yeast. His Zosyn had initially been changed back to a p.o. antibiotic. He is now on Diflucan, which he will be on for 2 weeks. His encephalopathy has completely resolved. [employer] was consulted for rehab versus home health and PT they opted for home health with physical therapy. VITAL SIGNS: At time of discharge, temperature is 97.9 degrees, heart rate 64, respirations 18, blood pressure is 139/70, O2 is 94% on room air. DISCHARGE MEDICATIONS: 1. Aspirin 81 mg p.o. daily. 2. Citalopram 20 mg p.o. at bedtime. 3. Finasteride 5 mg p.o. daily. 4. Gabapentin 300 mg p.o. 4 times a day. 5. Glucophage 1000 mg p.o. b.i.d. 6. MVI 1 each p.o. daily. 7. Prinivil 5 mg p.o. daily. 8. Zocor 10 mg p.o. at bedtime. 9. Vitamin B12 500 mcg p.o. daily. 10. Flomax 0.4 mg p.o. daily. 11. Protonix 40 mg p.o. daily. 12. Diflucan 200 mg p.o. daily for 14 days. 13. Fish oil 1000 mg p.o. daily. FOLLOWUP: The patient is being discharged home. He will need follow up with his primary care physician. He will be going home with home health and physical therapy. He is to return to the ED for any worsening symptoms. DISCHARGE TIME: Thirty five minutes. Dictated by SID Ospina for Raghavendra Romero MD MTDD
== END 2016-05-26 17:12 | disposition home health service (06) | DRG 871 ==
LOC: EDBD → ED 17:08 → 3S 23:33 → 4N 05-24 14:45
PROVIDERS: ATTEND Internal Medicine
DX: A41.9 Sepsis, unspecified organism (principal); G93.41 Metabolic encephalopathy; L89.151 Pressure ulcer of sacral region, stage 1; G91.2 (Idiopathic) normal pressure hydrocephalus; L89.622 Pressure ulcer of left heel, stage 2; N13.8 Other obstructive and reflux uropathy; B37.49 Other urogenital candidiasis; F03.90 Unspecified dementia, unspecified severity, without behavioral disturbance, psychotic disturbance, mood disturbance, and anxiety; R65.20 Severe sepsis without septic shock; E11.9 Type 2 diabetes mellitus without complications; N40.1 Benign prostatic hyperplasia with lower urinary tract symptoms; I10 Essential (primary) hypertension; R33.8 Other retention of urine; I25.10 Atherosclerotic heart disease of native coronary artery without angina pectoris; E78.5 Hyperlipidemia, unspecified; E66.9 Obesity, unspecified; Z68.29 Body mass index [BMI] 29.0-29.9, adult; Z86.14 Personal history of Methicillin resistant Staphylococcus aureus infection; Z95.1 Presence of aortocoronary bypass graft; Z95.5 Presence of coronary angioplasty implant and graft; Z87.891 Personal history of nicotine dependence; Z86.73 Personal history of transient ischemic attack (TIA), and cerebral infarction without residual deficits; Z79.82 Long term (current) use of aspirin; Z79.84 Long term (current) use of oral hypoglycemic drugs; Z79.899 Other long term (current) drug therapy; I25.2 Old myocardial infarction; Z83.3 Family history of diabetes mellitus; Z82.3 Family history of stroke; Z87.442 Personal history of urinary calculi; Z98.2 Presence of cerebrospinal fluid drainage device
CPT/HCPCS: 36415; 70450; 71010; 80048; 80053; 81001; 82948; 83605; 84153; 85025; 85610; 85730; 87040; 87088; 87804; 93005; 94640; 94761; 96365; 96366; 96368; J0696; J0878; J1644; J1815; J1940; J2543; J3370; J7030; S0138; 97110-GP; 97116-GP; 97530-GP

== ENCOUNTER 2016-07-28 13:44 | Inpatient (IN) ==
[2016-07-28] MEDS ORDERED: NS 1,000 ML ONE ×2 (14:21→20:47)
--- NOTE | 2016-07-28 14:57 | Diag Imaging Result Document ---
PROCEDURE NAME: HEAD W/O CONTRAST - 07/28/2016 CT BRAIN WITHOUT CONTRAST: TECHNIQUE: Dose reduction protocol. COMPARISON: 05/22/2016. FINDINGS: There is a right sided ventricular shunt catheter. The tip is in the anterior horn of the right lateral ventricle. This is unchanged from the prior study. Moderate ventriculomegaly remains. This is also unchanged. No parenchymal hemorrhage. No epidural or subdural hematoma. No subarachnoid hemorrhage. There are chronic microvascular ischemic changes. No sinus opacification. IMPRESSION: 1. No hemorrhage. 2. Atrophy with ventriculomegaly and chronic ischemic changes, similar to the prior exam. A preliminary report was given at 2:06 p.m.
[2016-07-28 15:16] LABS: ALLEN TEST YES; BE 0.1 mmoll (-3.0-3.0); BLOOD TYPE ARTERIAL; DRAW SITE R RADIAL; METHB 1.7 % (0.0-1.5); PCO2(98.6) 39 mmHg (35-45); PO2(98.6) 78 mmHg (60-100); SAMPLE BLOOD; SAO2 97.9 % (95.0-100.0); THB 11.3 g/dL (11.5-17.4); pH(98.6) 7.41 (7.35-7.45)
[2016-07-28 15:17] LABS: MODALITY ROOM AIR
[2016-07-28 15:32] LABS: MANUAL DIFF NEEDED? NO
[2016-07-28 15:38] LABS: BASO% 0.1 % (0.0-0.8); EOS# 0.04 X1000 (0.0-0.7); EOS% 0.3 % (0.0-10.0); HEMATOCRIT 36.9 % (42.0-52.0); HEMOGLOBIN 11.7 g/dL (14.0-18.0); IMM GRAN# 0.04 X1000 (0.0-0.04); IMM GRAN% 0.3 % (0.0-0.5); LYMPH# 1.35 X1000 (1.2-3.4); MCHC 31.7 g/dL (33-37); MCV 91.3 FL (81-99); MONO# 1.24 X1000 (0.11-0.59); MONO% 10.1 % (1.7-9.3); MPV 9.4 FL (7.4-10.4); NEUT% 78.2 % (42.2-75.2); PLT 393 X1000 (130-400); RBC 4.04 XMIL (4.7-6.1)
[2016-07-28 15:45] LABS: INR 1.04; PROTIME 10.9 Seconds (9.2-11.7); PTT 26.4 Seconds (22.0-36.0)
--- NOTE | 2016-07-28 15:48 | EKG Report ---
Test Performed on : 07/28/2016 2:43:20 PM Test Reason : AMS Blood Pressure : / mmHG Vent. Rate : 085 BPM Atrial Rate : 085 BPM P-R Int : 142 ms QRS Dur : 116 ms QT Int : 388 ms P-R-T Axes : 029 -38 152 degrees QTc Int : 461 ms Normal sinus rhythm. Left axis deviation Cannot rule out Anterior infarct , age undetermined Abnormal ECG When compared with ECG of 21-MAY-2016 17:14, Nonspecific T wave abnormality now evident in Inferior leads QT has lengthened Unconfirmed Result
[2016-07-28 15:58] LABS: AGAP 13; ALBUMIN 3.1 g/dL (3.5-5.0); ALKALINE PHOSPHATASE 51 U/L (32-122); BUN 23 mg/dL (8-22); CALCIUM 8.8 mg/dL (8.8-10.2); CHLORIDE 100 mmol/L (98-107); COSMO 281; GOT 43 U/L (10-34); GPT 23 U/L (10-44); SODIUM 138 mmol/L (136-145); TCO2 25 mmol/L (25-35); TOTAL BILIRUBIN 0.41 mg/dL (0.20-1.00); TOTAL PROTEIN 5.9 g/dL (6.3-8.3)
[2016-07-28 15:59] LABS: CK PROFILE 508 U/L (24-204)
[2016-07-28 16:14] LABS: CK INDEX 2.8 (0.0-2.5); CK-MB 13.99 ng/mL (0.0-5.0)
--- NOTE | 2016-07-28 16:25 | Diag Imaging Result Document ---
PROCEDURE NAME: CHEST-PORTABLE - 07/28/2016 PORTABLE CHEST: COMPARISON: 05/23/2016. FINDINGS: Sternal wires are present. There are increased interstitial markings in the mid and lower left lung with pleural thickening similar to the prior exam. The heart is not enlarged. No consolidation. IMPRESSION: Increased markings in the left lung believed to be fibrosis with pleural thickening. Stable chest.
--- NOTE | 2016-07-28 16:39 | PROVIDER DOCUMENTATION ---
This chart was entered by Kristin Chavez Scribe, acting as scribe for Francisco Garcia MD. HPI-Neurological Disorder - General Chief Complaint: Stroke-Like Symptoms Stated Complaint: ? SEIZURE/?STROKE Time Seen by Provider: 07/28/16 14:30 Source: patient Allergies/Adverse Reactions: Patient Allergies Allergy/AdvReac Type Severity Reaction Status Date / Time No Known Allergies Allergy Verified 07/28/16 16:07 Home Medications: Home Medication List Medication Instructions Recorded Confirmed Last Taken Type Aspirin [Aspirin EC] 81 mg PO DAILY 04/30/14 07/28/16 07/28/16 08:00 History Citalopram Hydrobromide [Celexa] 40 mg PO HS 04/30/14 07/28/16 07/27/16 20:00 History Finasteride 5 mg PO DAILY 04/30/14 07/28/16 07/28/16 08:00 History Gabapentin 300 mg PO 4XDAY 04/30/14 07/28/16 07/28/16 08:00 History LISINOpril [Prinivil] 5 mg PO DAILY 04/30/14 07/28/16 07/28/16 08:00 History Metformin [Glucophage] 1,000 mg PO BID 04/30/14 07/28/16 07/28/16 08:00 History Multivitamin [Multivitamins] 1 each PO DAILY 04/30/14 07/28/16 07/28/16 08:00 History SIMVAstatin [Zocor] 10 mg PO QHS 04/30/14 07/28/16 07/27/16 20:00 History Cyanocobalamin (Vitamin B-12) 500 mcg PO DAILY 01/09/16 07/28/16 07/28/16 08:00 History [Vitamin B-12] Randolph-3 Fatty Acids [Fish Oil 1,000 mg PO DAILY #0 capsule 05/26/16 07/28/1606/11 08:00 Rx Concentrate] Glipizide 2.5 mg PO DAILY 07/28/16 07/28/16 07/28/16 08:00 History Metformin [Glucophage] 500 mg PO WLUNCH 07/28/16 07/28/16 07/28/16 12:00 History Pantoprazole [Protonix] 40 mg PO DAILY 07/28/16 07/28/1607/28/17 08:00 History Tamsulosin [Flomax] 0.8 mg PO DAILY 07/28/16 07/28/16 07/28/16 08:00 History - History of Present Illness-Neuro Nature of Presenting Problem: Pt is 81 y/o M presents to the ED with AMS. Pt's family states increase in confusion. Pt's family states can not be put on hospice due to PCP will not sign for it. Headache Location: denies: frontal, temporal, occipital, parietal, global Severity: reports: moderate Onset/Duration: reports: other (6 mths) Timing: reports: still present Context: reports: other (AMS) Character of Altered Mental Status: reports: confused Any recent trauma/injury?: reports: none Character of Deficits: reports: decreased ability to stand, decreased ability to walk New weakness or altered sensation location:: reports: general (diffuse) Cognitive Baseline: alert but disoriented Gait Baseline: unable to walk Associated Symptoms: reports: denies symptoms Similar Symptoms Previously?: Yes Recently seen or treated by another doctor?: No Review of Systems - Adult - REVIEW OF SYSTEMS - ADULT Constitutional: reports: no symptoms reported Eyes: reports: no symptoms reported Ears, Nose, Mouth & Throat: reports: no symptoms reported Cardiovascular: reports: no symptoms reported Respiratory: reports: no symptoms reported Gastrointestinal: reports: no symptoms reported Genitourinary: reports: no symptoms reported Musculoskeletal: reports: no symptoms reported Integumentary: reports: no symptoms reported Neurological: reports: other (AMS). denies: dizziness/vertigo, headache/ migraines, syncope Psychiatric: reports: no symptoms reported Endocrine: reports: no symptoms reported Hematologic/Lymphatic: reports: no symptoms reported Allergic/Immunologic: reports: no symptoms reported All Other Systems: Reviewed and Negative Past History - Adult - PAST MEDICAL HISTORY-ADULT Review of Records: reports: Nursing Assessment Review, Medications Reviewed, Social history reviewed & non-contributory. Major Childhood Illnesses: reports: denies history Cardiovascular: reports: CAD, HTN, hyperlipidemia, VT Respiratory: reports: denies history Gastrointestinal: reports: denies history Obstetrical/Gynecological: reports: denies history Genitourinary: reports: kidney stones Musculoskeletal: reports: denies history Neurological: reports: dementia, TIA, other (NPH/shunt) Endocrine/Immune: reports: Diabetes, thyroid disorder Other Conditions: reports: denies history - PRIOR SURGERIES/PROCEDURES Surgical/Procedure History: reports: CABG, cardiac stent (x2), orthopedic ( extremity) - IMMUNIZATION STATUS Childhood Immunizations: See Nurse Assessment Flu Vaccine: See Nurse Assessment - FAMILY HISTORY Family History: reviewed, not pertinent - SOCIAL HISTORY Smoking: denies Substance Use: denies Living Situation: family Physical Exam- Neurological - Physical Exam-Neuro Initial Vital Signs Reviewed: Yes General Appearance: appears well, alert, no apparent distress Eye Exam: bilateral eye: normal inspection, PERRL, EOMI HENMT: normocephalic/atraumatic, moist mucous membranes, normal ENT inspection, TMs normal, pharynx normal Head Injury: no evidence of injury Neck: non-tender, full range of motion, supple, normal inspection Respiratory: chest non-tender, lungs clear, normal breath sounds, no pleuratic chest pain, no respiratory distress, no accessory muscle use Cardiovascular: normal peripheral pulses, regular rate, rhythm, no edema, no gallop, no JVD, no murmur Abdominal Exam: normal bowel sounds, non tender, soft, no organomegaly, no pulsatile mass Lymphatic: no adenopathy Extremity: normal range of motion, non-tender, normal inspection [employer] Exam: normal hearing, normal speech, PERRL Motor/Sensory: no motor deficit, no sensory deficit, no pronator drift Neurologic: grossly normal Integumentary: normal color, normal turgor, warm/dry Psych/Mental Status: normal mood/affect, disoriented x 3 Progress - PLAN OF CARE/RESULTS Progress/Plan/Lab Results: Vital Signs - 8 hr 07/28/16 14:00 07/28/16 14:15 07/28/16 15:25 Temperature 98.6 F Pulse Rate 90 87 88 Respiratory Rate 19 23 19 Blood Pressure 68/46 61/42 83/53 O2 Sat by Pulse Oximetry 95 94 L 97 07/28/16 16:58 Temperature Pulse Rate 86 Respiratory Rate 10 L Blood Pressure 71/44 O2 Sat by Pulse Oximetry Laboratory Results - last 24 hr 07/28/16 07/28/16 07/28/16 15:10 15:20 15:20 WBC 12.22 H RBC 4.04 L Hgb 11.7 L Hct 36.9 L MCV 91.3 MCH 29.0 MCHC 31.7 L RDW Std Deviation 16.1 H Plt Count 393 MPV 9.4 Immature Gran % (Auto) 0.3 Neut % (Auto) 78.2 H Lymph % (Auto) 11.0 L Bulloch % (Auto) 10.1 H Eos % (Auto) 0.3 Baso % (Auto) 0.1 Immature Gran # (Auto) 0.04 Neut # (Auto) 9.54 H Lymph # (Auto) 1.35 Bulloch # (Auto) 1.24 H Eos # (Auto) 0.04 Baso # (Auto) 0.01 PT INR PTT (Actin FS) Specimen Type ARTERIAL Sample Site R RADIAL pH 7.41 pCO2 39 pO2 78 HCO3 24.9 Base Excess 0.1 Oxyhemoglobin 94.1 L ABG O2 Sat (Calculated) 15.0 ABG O2 Saturation 97.9 ABG Carboxyhemoglobin 2.20 ABG Methemoglobin 1.7 H Rian Test YES A-a O2 Difference 23.0 Total Hemoglobin 11.3 L Lactate 1.50 Blood Gas Modality ROOM AIR FiO2 % 21.0 Sodium Potassium Chloride Carbon Dioxide Anion Gap BUN Creatinine Estimated GFR/1.73 m2 BUN/Creatinine Ratio Glucose Calculated Osmolality Calcium Total Bilirubin AST ALT Alkaline Phosphatase Creatine Kinase Creatine Kinase Index CK-MB (CK-2) Troponin T Total Protein Albumin Globulin Albumin/Globulin Ratio Plasma Lactate Plasma/Serum Ethyl Alc 07/28/16 07/28/16 07/28/16 15:20 15:20 15:20 WBC RBC Hgb Hct MCV MCH MCHC RDW Std Deviation Plt Count MPV Immature Gran % (Auto) Neut % (Auto) Lymph % (Auto) Bulloch % (Auto) Eos % (Auto) Baso % (Auto) Immature Gran # (Auto) Neut # (Auto) Lymph # (Auto) Bulloch # (Auto) Eos # (Auto) Baso # (Auto) PT 10.9 INR 1.04 PTT (Actin FS) 26.4 Specimen Type Sample Site pH pCO2 pO2 HCO3 Base Excess Oxyhemoglobin ABG O2 Sat (Calculated) ABG O2 Saturation ABG Carboxyhemoglobin ABG Methemoglobin Rian Test A-a O2 Difference Total Hemoglobin Lactate Blood Gas Modality FiO2 % Sodium 138 Potassium 4.0 Chloride 100 Carbon Dioxide 25 Anion Gap 13 BUN 23 H Creatinine 1.1 Estimated GFR/1.73 m2 > 60 BUN/Creatinine Ratio 21 Glucose 133 H Calculated Osmolality 281 Calcium 8.8 Total Bilirubin 0.41 AST 43 H ALT 23 Alkaline Phosphatase 51 Creatine Kinase 508 H Creatine Kinase Index 2.8 H CK-MB (CK-2) 13.99 H Troponin T Total Protein 5.9 L Albumin 3.1 L Globulin 2.8 Albumin/Globulin Ratio 1.1 Plasma Lactate 1.7 Plasma/Serum Ethyl Alc 07/28/16 15:20 WBC RBC Hgb Hct MCV MCH MCHC RDW Std Deviation Plt Count MPV Immature Gran % (Auto) Neut % (Auto) Lymph % (Auto) Bulloch % (Auto) Eos % (Auto) Baso % (Auto) Immature Gran # (Auto) Neut # (Auto) Lymph # (Auto) Bulloch # (Auto) Eos # (Auto) Baso # (Auto) PT INR PTT (Actin FS) Specimen Type Sample Site pH pCO2 pO2 HCO3 Base Excess Oxyhemoglobin ABG O2 Sat (Calculated) ABG O2 Saturation ABG Carboxyhemoglobin ABG Methemoglobin Rian Test A-a O2 Difference Total Hemoglobin Lactate Blood Gas Modality FiO2 % Sodium Potassium Chloride Carbon Dioxide Anion Gap BUN Creatinine Estimated GFR/1.73 m2 BUN/Creatinine Ratio Glucose Calculated Osmolality Calcium Total Bilirubin AST ALT Alkaline Phosphatase Creatine Kinase Creatine Kinase Index CK-MB (CK-2) Troponin T 5.660 H* Total Protein Albumin Globulin Albumin/Globulin Ratio Plasma Lactate Plasma/Serum Ethyl Alc Orders Category Date Time Status Admit Patient To Inpatient Status Routine [id number] 07/28/16 17:29 Ordered Cardiac Monitoring DIRECTED Care 07/28/16 14:56 Active Finger Stick Blood Sugar (ED) DIRECTED Care 07/28/16 14:56 Active Oxygen Therapy- ED Nursing DIRECTED Care 07/28/16 14:56 Active Saline Loc NOW Care 07/28/16 14:56 Active CHEST-PORTABLE [RAD] Stat Exams 07/28/16 14:56 Completed HEAD W/O CONTRAST [CT] Stat Exams 07/28/16 13:46 Completed ABG [RESP] Routine Lab 07/28/16 15:10 Completed ALCOHOL BLOOD Stat Lab 07/28/16 15:20 Completed CBC WITH ELECTRONIC DIFF [HEME] Stat Lab 07/28/16 15:20 Completed CK PROFILE [SP CHEM] Stat Lab 07/28/16 15:20 Completed CK PROFILE [SP CHEM] Stat Lab 07/28/16 17:30 Ordered COMPREHENSIVE METABOLIC PANEL [CHEM] Stat Lab 07/28/16 15:20 Completed LACTATE, PLASMA [CHEM] Stat Lab 07/28/16 15:20 Completed PROTIME WITH INR [COAG] Stat Lab 07/28/16 15:20 Completed PTT [COAG] Stat Lab 07/28/16 15:20 Completed TROPONIN T Stat Lab 07/28/16 15:20 Completed TROPONIN T Stat Lab 07/28/16 17:30 Ordered URINALYSIS W/POSS RFLX CULT-1 [URINALYSIS] Stat Lab 07/28/16 14:56 Uncollected URINE DRUG SCREEN Stat Lab 07/28/16 14:56 Uncollected 0.9% Sodium Chloride Inj [Ns] 1,000 ml Med 07/28/16 14:21 Discontinued .ROUTE As Directed Dopamine 400 mg/D5w Med 07/28/16 17:00 Discontinued 400 mg in 500 ml .ROUTE As Directed Dopamine 400 mg/D5w Med 07/28/16 16:25 Active 400 mg in 500 ml IV 24.494 mls/hr Pulse Oximetry Stat Oth 07/28/16 14:56 Active EKG [EKG] Stat Ther 07/28/16 14:56 Draft EKG [EKG] Stat Ther 07/28/16 17:20 Ordered Result Diagrams: 07/28/16 15:20 07/28/16 15:20 - REASSESSMENT Reassessment #1 Time Reassessed: 16:38 Status: unchanged (high troponin returned and advised and she does not want extrodinary measuters such as surgery or emergency cath) Reassessment #2 Time Reassessed: 17:35 Status: unchanged (pt agrees to keep him here and no invasive procedures) - XRAY 1 XRAY Study: Chest Impression: Normal XRAY Interpretation: stable chest - CT/MRI 1 CT Study: Head Impression: Normal CT Results: stable exam. no change - CONSULTS/PCP/HOSPITALIST Notification #1 *Consult/PCP/Hospitalist*: Dr. Love Time Discussed: 16:45 (Dr. Love states consults with cardiology. ) Reason/Comments: Dr. Garcia consulted with Dr. Love about admit of PT. Consult Disposition: other #2 Consult: Dr. Hernandez Time Discussed: 17:30 (Dr. Hernandez states admit to hospitalist. ) Reason/Comments: Dr. Garcia consulted with Dr. Hernandez about Pt Consult Disposition: other #3 Consult: Dr. Love Time Discussed: 17:34 Reason/Comments: Dr. Garcia consults with Dr. Love about admit of Pt Consult Disposition: Admit Departure - Departure Time of Disposition Decision: 17:34 DIAGNOSIS: Dementia Qualifiers: Dementia type: vascular dementia Dementia behavioral disturbance: without behavioral disturbance Qualified Code(s): F01.50 - Vascular dementia without behavioral disturbance Myocardial infarction Qualifiers: Myocardial infarction ST status: non-ST elevation myocardial infarction Qualified Code(s): I21.4 - Non-ST elevation (NSTEMI) myocardial infarction Disposition: ADMITTED INPATIENT 09 Certified Medical Emergency: Emergent Condition: Critical Referrals and Follow-Ups: Lauren Putnam [Primary Care Provider] - - Critical Care Note This patient required my direct & personal management of CC.: Yes Total Time (mins): 1 (hour) Critical Care Statement: This patient required my direct personal management to treat or rule out processes, the absence of which, could potentiallly result in sudden, clinically significant life or limb threatening deterioration. Comments: extensive discussion of end of life measures, hospice, NH, and the reality that a full code is not realistic but insists on that This chart was documented by the indicated scribe, (Kristin Chavez, [place]ie) and accurately reflects the services I performed and decisions made by me, Francisco Garcia MD, as attested by the provider's signature.
[2016-07-28] MEDS ORDERED: DOPAMINE 400 MG/D5W 400 MG/500 ML IV.SOLN ONE (17:00)
[2016-07-28] MEDS: DOPAMINE 400 MG/D5W 400 MG/500 ML IV.SOLN IV SCH ×3 (17:05→20:45)
[2016-07-28 18:30] LABS: CK INDEX 2.6 (0.0-2.5); CK-MB 13.98 ng/mL (0.0-5.0)
[2016-07-28] MEDS ORDERED: NS 1,000 ML IV SCH (18:45)
[2016-07-28] MEDS ORDERED: TYLENOL PO PRN (18:45)
[2016-07-28] MEDS ORDERED: MORPHINE IV PRN (18:51)
--- NOTE | 2016-07-28 20:37 | HISTORY AND PHYSICAL ---
CHIEF COMPLAINT: Generalized weakness, slurred speech. HISTORY OF PRESENT ILLNESS: A 81-year-old, male with a past medical history of coronary artery disease status post CABG, normal pressure hydrocephalus status post CHANGE MANAGEMENT LEAD shunt, hypertension, dyslipidemia, type 2 diabetes and multiple admissions for sepsis secondary to urinary tract infection. The most recent admission was on 05/21/2016. As per his , this patient was doing fine, but today she started noticing that this patient had some kind of facial deviation and the caregiver told her that they needed to call the ambulance and transfer this patient over here. When I evaluated this patient, he did not have any signs or symptoms of stroke, just generalized weakness. In the emergency department, he was found to have a troponin level of 5.6. Cardiology Department was consulted. Also, this patient is presenting with low blood pressure and he has been on pressors in the emergency department as well. I talked to his and after having a really large conversation about goals of care, she decided to put this patient Do Not Resuscitate level 2, she just wants IV treatment or p.o. treatment for this patient. This patient will be admitted to the ICU because this patient is on pressors under the diagnosis of NSTEMI. REVIEW OF SYSTEMS: A 14 point review of system was conducted with the patient and all were negative except for HPI. PAST MEDICAL HISTORY: 1. Multiple admissions for urinary tract infection/sepsis. The last 1 documented was on 05/21/2016. 2. Coronary artery disease status post CABG. 3. History of CVA. 4. Normal pressure hydrocephalus status post CHANGE MANAGEMENT LEAD shunt placement. 5. Hypertension. 6. Dyslipidemia. 7. Diabetes. 8. Obesity with a BMI of 29.1. 9. History of fecal and urinary incontinence. 10. BPH. 11. Dementia. PAST SURGICAL HISTORY: Coronary artery bypass graft in 1999 and CHANGE MANAGEMENT LEAD shunt placement. SOCIAL HISTORY: He used to smoke 1 pack a day of cigarettes for about 50 years and he quit smoking several years ago. No alcohol. No drugs. Currently, apparently he is living at home with home health. ALLERGIES: No known allergies. HOME MEDICATIONS: Tamsulosin 0.8 mg p.o. daily. Simvastatin 10 mg p.o. at bedtime. Pantoprazole 40 mg p.o. daily. Fish oil 1000 mg p.o. daily. Multivitamin 1 tab daily. Metformin 500 mg p.o. with lunch. Metformin 1000 mg p.o. b.i.d. Lisinopril 5 mg p.o. daily. Glipizide 2.5 mg p.o. daily. Gabapentin 300 mg p.o. 4 times a day. Finasteride 5 mg p.o. daily. Vitamin B12 500 mcg p.o. daily. Citalopram 40 mg p.o. at bedtime. Aspirin 81 mg p.o. daily. PHYSICAL EXAMINATION: VITAL SIGNS: Temperature 98.6 degrees, pulse 86, respiratory rate 13, blood pressure 71/44, O2 saturation 97% on room air. HEENT: Head normocephalic. No trauma. PERRLA. NECK: Supple. Mild JVD. Central trachea. CHEST: Clear to auscultation. No wheezing. No rales. CARDIOVASCULAR: Regular rhythm and rate. S3 present. ABDOMEN: Soft, nontender, nondistended. No hepatosplenomegaly. EXTREMITIES: No edema. No clubbing. No cyanosis. NEUROLOGICAL: The patient is alert. He is oriented x2. He is able to recognize his . He moves all 4 extremities. LABORATORY: WBC 12.2, hemoglobin 11.7, hematocrit 36.9, platelets 393,000. Sodium 138, potassium 4, chloride 100, bicarbonate 25, BUN 23, creatinine 1.1 glucose 133, calcium 8.8, AST 43, ALT 23, alkaline phosphatase 51, CK-MB 13.9, troponin 5.6, albumin 3.1. ASSESSMENT AND PLAN: 1. [id number] myocardial infarction. This patient has been placed on aspirin, Plavix and anticoagulation. Because of his low blood pressure, this patient is going to be transferred to the intensive care unit to receive pressors. Cardiology Department will evaluate this patient. I had a conversation with the family and they decided to put this patient Do Not Resuscitate level 2, they just want medications intravenously or p.o. for him. 2. History of urinary tract infection/sepsis. I will ask for urine analysis and urine cultures and blood cultures. At this moment he is not having any symptoms of urinary tract infection. 3. Hypertension, actually this patient has a low blood pressure. 4. Cardiogenic shock, likely secondary to his [id number] myocardial infarction. We will continue with pressors, Cardiology Department has been consulted. 5. Hypotension, as above. 6. Dyslipidemia. I will continue with this patient's statins. 7. Type 2 diabetes. This patient will be on sliding scale insulin. 8. History of coronary artery disease status post coronary artery bypass graft. Aware. Today this patient is having a [id number] myocardial infarction. 9. History of cerebrovascular accident. We will monitor. 10. Normal pressure hydrocephalus status post ventriculoperitoneal shunt placement. We are not having any problems at this moment. We will monitor. cc: Juanpablo Giles MD
[2016-07-28] MEDS: LEVOPHED 8 MG in D5 1/2 NS 250 ML IV SCH ×2 (21:19→22:00)
[2016-07-28] MEDS: HUMULIN R SUBQ SCH (22:18)
[2016-07-28] MEDS: LOVENOX SUBQ SCH (22:28)
[2016-07-28] MEDS: PLAVIX PO SCH (22:28)
[2016-07-28] MEDS: CELEXA PO SCH (22:29)
[2016-07-28] MEDS: NEURONTIN PO SCH (22:29)
[2016-07-28] MEDS: ZOCOR PO SCH (22:29)
[2016-07-29 03:00] LABS: MANUAL DIFF NEEDED? NO
[2016-07-29 03:06] LABS: BASO% 0.1 % (0.0-0.8); EOS# 0.17 X1000 (0.0-0.7); EOS% 1.2 % (0.0-10.0); HEMATOCRIT 37.9 % (42.0-52.0); HEMOGLOBIN 12.1 g/dL (14.0-18.0); IMM GRAN# 0.06 X1000 (0.0-0.04); IMM GRAN% 0.4 % (0.0-0.5); LYMPH# 2.38 X1000 (1.2-3.4); LYMPH% 17.3 % (20.5-51.1); MCH 28.9 PG (27-31); MCHC 31.9 g/dL (33-37); MCV 90.5 FL (81-99); MONO# 1.48 X1000 (0.11-0.59); MONO% 10.7 % (1.7-9.3); MPV 9.8 FL (7.4-10.4); NEUT% 70.3 % (42.2-75.2); PLT 525 X1000 (130-400); RBC 4.19 XMIL (4.7-6.1)
[2016-07-29 03:33] LABS: ALBUMIN 3.1 g/dL (3.5-5.0); TOTAL BILIRUBIN 0.41 mg/dL (0.20-1.00); TOTAL PROTEIN 6.3 g/dL (6.3-8.3)
[2016-07-29] MEDS: LEVOPHED 8 MG in D5 1/2 NS 250 ML IV SCH ×3 (05:11→22:22)
[2016-07-29] MEDS: HUMULIN R SUBQ SCH ×4 (06:43→21:25)
[2016-07-29 07:59] LABS: URINE SOURCE CATH
[2016-07-29 08:03] LABS: BILIRUBIN URINE NEGATIVE (NEGATIVE); BLOOD URINE SMALL (NEGATIVE); COLOR YELLOW; GLUCOSE URINE 70 mg/dL (NEGATIVE); LEUKOCYTES URINE LARGE (NEGATIVE); NITRITE URINE NEGATIVE (NEGATIVE); PH URINE 5.5; PROTEIN URINE 100 mg/dL (NEGATIVE); SP GRAVITY URINE 1.017; TURBIDITY URINE TURBID (CLEAR); UROBILINOGEN URINE NORMAL (NORMAL)
[2016-07-29 08:04] LABS: URINE MICRO REVIEW NEEDED? YES
[2016-07-29 08:05] LABS: UR EPITHELIAL CELLS <10 /HPF (<10); URINE BACTERIA NEGATIVE /HPF; URINE RBC <10 /HPF (<10); URINE WBC TNTC /HPF (<10)
[2016-07-29 08:13] LABS: UR AMPHETAMINES QUAL NONE DETECTED (NONE DETECT); UR BARBITUATES QUAL NONE DETECTED (NONE DETECT); UR BENZODIAZEPIN QUAL NONE DETECTED (NONE DETECT); UR CANNABINOIDS QUAL NONE DETECTED (NONE DETECT); UR COCAINE QUAL NONE DETECTED (NONE DETECT); UR METHADONE QUAL NONE DETECTED (NONE DETECT); UR OPIATES QUAL NONE DETECTED (NONE DETECT); UR OXYCODONE QUAL NONE DETECTED (NONE DETECT); UR PCP QUAL NONE DETECTED (NONE DETECT)
[2016-07-29 08:18] LABS: URINE CASTS NONE SEEN; URINE CRYSTALS NONE SEEN; URINE SMALL ROUND CELLS NONE SEEN
[2016-07-29] MEDS: LOVENOX SUBQ SCH ×2 (08:23→21:23)
[2016-07-29] MEDS: PLAVIX PO SCH (08:23)
[2016-07-29] MEDS: NEURONTIN PO SCH ×4 (08:23→21:24)
[2016-07-29] MEDS: PROTONIX PO SCH (08:23)
[2016-07-29] MEDS: ASPIRIN EC PO SCH (08:23)
[2016-07-29] MEDS: PROSCAR PO SCH (08:23)
[2016-07-29] MEDS: VITAMIN B-12 PO SCH (08:23)
[2016-07-29] MEDS: THERA M PLUS PO SCH (08:23)
[2016-07-29] MEDS: ZOSYN 3.375 GM/NS 3.375 GM/50 ML IVPB IV SCH ×3 (09:49→21:30)
--- NOTE | 2016-07-29 10:00 | CONSULTATION ---
DATE OF CONSULTATION: 07/29/2016 IMPRESSION: 1. Small non-ST elevation myocardial infarction, probably a secondary event due to the stress related to recurrent urosepsis. 2. Generalized weakness in a patient with a history of recurrent urosepsis with urinalysis showing too numerous to count white blood cells. Patient also with low blood pressure. Suspect recurrent urosepsis. 3. Atherosclerotic coronary disease with history of previous coronary artery bypass grafting several years ago Last echocardiography in 2014 indicated normal left ventricular ejection fraction. There has been no angina. 4. Prior cerebrovascular accident. 5. Dementia. 6. Normal pressure hydrocephalus. Patient is status post ventriculoperitoneal shunt placement. 7. Hypertension. 8. Diabetes mellitus. 9. Hyperlipidemia. RECOMMENDATIONS: 1. Conservative cardiovascular care in light of patient's dementia, overall comorbidities, and poor functional status. 2. Repeat echocardiography. 3. Continue medical management for patient's coronary atherosclerosis. 4. Evaluate and manage for suspected urosepsis. HISTORY: This is an 81-year-old, white male with a past history of previous coronary bypass grafting several years ago, previous cerebrovascular accident, dementia, normal pressure hydrocephalus, hypertension, diabetes mellitus, hyperlipidemia, and recurrent urosepsis. He was admitted on transfer from a [facility] facility after he had symptoms of significant weakness. He was found to have low blood pressure. There has been no chest pain, although his memory of recent events is limited. He has been admitted to the intensive care unit. His troponin was 5.6. His family has decided to but this patient at do not resuscitate level 2 and desire for only intravenous treatment or oral treatment for his care. PAST MEDICAL HISTORY: 1. Multiple admissions for urinary tract infection/sepsis. 2. Atherosclerotic coronary disease with a history of previous coronary artery bypass grafting several years ago Last echocardiography indicated left ventricular ejection fraction of 60%. 3. Previous cerebrovascular accident. 4. Normal pressure hydrocephalus. Patient is status post ACCOUNTING ADMINISTRATOR shunt placement. 5. Hypertension. 6. Diabetes mellitus. 7. Hyperlipidemia. 8. Dementia. 9. History of fecal and urinary incontinence. 10. Prostate hypertrophy. PAST SURGICAL HISTORY: 1. Includes coronary artery bypass grafting in 1999. 2. ACCOUNTING ADMINISTRATOR shunt placement. ALLERGIES: He has no known drug allergies. MEDICATIONS: Prior to admission, as listed. SOCIAL HISTORY: He is currently living at home with home health. He no longer smokes. He does not use alcohol. FAMILY HISTORY: Negative for premature coronary disease. REVIEW OF SYSTEMS: Pulmonary: Negative. Gastrointestinal: Negative. Constitutional: Noteworthy for generalized weakness but otherwise negative. The remainder of review of systems negative/noncontributory. Fourteen total systems reviewed. PHYSICAL EXAMINATION: General: This is an elderly, white male in no distress on supple oxygen per nasal cannula. Vital Signs: Blood pressure 96/72, heart rate 82 and regular with ECG monitor showing sinus rhythm. HEENT Examination: Extraocular movements appear intact. Mucous membranes are moist. Neck: Supple with jugular venous distention. There are no carotid bruits. Chest: Clear to auscultation. Cardiac Examination: Reveals a regular rate and rhythm without appreciable murmur or gallop. Abdomen: Soft and nontender. Bowel sounds are normal. Extremities: Without edema. Neurologic Examination: Reveals him to be alert and oriented to person and place but not to time. He moves all 4 extremities equally well. Speech is fluent. DIAGNOSTIC DATA: ECG demonstrates sinus rhythm, left axis deviation, and nonspecific interventricular conduction abnormality. There is delayed precordial R-wave progression, cannot exclude previous anterior infarct. LABORATORY DATA: Includes a white blood cell count of 13.77. BUN 25, creatinine 1.2. CPK 547, CK-MB 13.98, CPK-MB index 2.6, troponin 5.66. Urinalysis is a clean-catch specimen. It shows too- eqlenhnn-dv-necie white blood cell count. cc: Evan Puentes MD
--- NOTE | 2016-07-29 10:12 | EKG Report ---
Test Performed on : 07/28/2016 5:45:49 PM Test Reason : STROKE LIKE SX Blood Pressure : / mmHG Vent. Rate : 088 BPM Atrial Rate : 088 BPM P-R Int : 140 ms QRS Dur : 128 ms QT Int : 380 ms P-R-T Axes : 044 -38 103 degrees QTc Int : 459 ms Normal sinus rhythm. Left axis deviation Nonspecific intraventricular block Cannot rule out Anterior infarct (cited on or before 21-MAY-2016) Abnormal ECG When compared with ECG of 28-JUL-2016 14:43, (Unconfirmed) Nonspecific T wave abnormality no longer evident in Inferior leads Unconfirmed Result
[2016-07-29 10:31] LABS: URINE CULTURE NEEDED? NO
[2016-07-29 10:47] LABS: CK INDEX 2.4 (0.0-2.5); CK-MB 8.32 ng/mL (0.0-5.0)
[2016-07-29] MEDS ORDERED: VANCOMYCIN IV PER PHARMACY MISC SCH (11:15)
--- NOTE | 2016-07-29 12:11 | PROGRESS NOTE ---
DATE: 07/29/2016 SUBJECTIVE: This patient states that he is feeling better. He is still in the ICU. He is still on pressors. We have been trying to wean this patient off pressors, but the blood pressure is dropping. At this at this moment, he is stable. OBJECTIVE: Vital Signs: Temperature 97.5 degrees, pulse 74, respiratory rate 20, blood pressure 128/68, oxygen saturation 94% on 2L of nasal cannula. HEENT: Head normocephalic. No trauma. PERRLA. Neck: Supple. No JVD. No masses. Central trachea. Chest: Clear to auscultation. No wheezing. No rales. Abdomen: Soft, nontender, nondistended. No hepatosplenomegaly. Cardiovascular: RRR. No murmurs. Extremities: No edema. No clubbing. No cyanosis. Neurological: The patient is alert. He is oriented x2. He is able to recognize his and have a conversation with her. He moves all 4 extremities. LABORATORY: WBC 13.7, hemoglobin 12.1, hematocrit 37.9, platelets 525,000. Sodium 139, potassium 4, chloride 101, bicarbonate 21, BUN 25, creatinine 1.2, glucose 242, calcium 9. ASSESSMENT AND PLAN: 1. Fxi-FD-ncnoubknx myocardial infarction. This patient has been placed on aspirin. I will stop the Plavix and I will continue with anticoagulation for 1 more day. Probably, this is related to a new recurrent urinary tract infection. Cardiology Department is on board and the case has been discussed with Dr. Evan Puentes. 2. Possible urinary tract infection/sepsis. Urine showed multiple white blood cells and no bacteria. Urine culture has been negative so far. I will treat this patient empirically. He recently had an infection with Methicillin-resistant Staphylococcus aureus, so I will put this patient on vancomycin and Zosyn. Will monitor. 3. Hypertension. Actually, this patient has low blood pressure/shock. 4. Cardiogenic shock, likely secondary to brf-CF-ewqrpugfj myocardial infarction. We will continue with pressors. The possibility of septic shock is also high. 5. Hypotension, as above. Continue with pressors. 6. Dyslipidemia. Continue with statins. 7. Type 2 diabetes. I will continue with the sliding scale insulin and pattern of blood sugar. 8. History of coronary artery disease, status post coronary artery bypass graft. Aware. 9. History of cerebrovascular accident. Will monitor. 10. Normal-pressure hydrocephalus, status post ventriculoperitoneal shunt placement. We are not having any problems at this moment. Will monitor. CRITICAL CARE TIME: Thirty-five minutes. cc: Juanpablo Giles MD
[2016-07-29] MEDS ORDERED: REGITINE SUBQ ONE (13:53)
[2016-07-29] MEDS ORDERED: VANCOMYCIN 1,800 MG in NS 250 ML IV ONE (14:00)
[2016-07-29] MEDS ORDERED: STERILE WATER INJ. ONE (14:12)
[2016-07-29] MEDS: ZOCOR PO SCH (21:24)
[2016-07-29] MEDS: CELEXA PO SCH (21:24)
[2016-07-30] MEDS: ZOSYN 3.375 GM/NS 3.375 GM/50 ML IVPB IV SCH ×4 (04:10→20:54)
[2016-07-30 06:04] LABS: MANUAL DIFF NEEDED? NO
[2016-07-30 06:08] LABS: BASO% 0.3 % (0.0-0.8); EOS# 0.27 X1000 (0.0-0.7); EOS% 2.3 % (0.0-10.0); HEMOGLOBIN 11.8 g/dL (14.0-18.0); IMM GRAN# 0.05 X1000 (0.0-0.04); IMM GRAN% 0.4 % (0.0-0.5); LYMPH# 1.79 X1000 (1.2-3.4); LYMPH% 15.4 % (20.5-51.1); MCH 29.1 PG (27-31); MCHC 31.9 g/dL (33-37); MCV 91.1 FL (81-99); MPV 9.7 FL (7.4-10.4); NEUT% 69.6 % (42.2-75.2); PLT 451 X1000 (130-400); RBC 4.06 XMIL (4.7-6.1)
[2016-07-30 06:25] LABS: AGAP 12; BUN 17 mg/dL (8-22); CALCIUM 9.1 mg/dL (8.8-10.2); CHLORIDE 104 mmol/L (98-107); COSMO 289; POTASSIUM 3.9 mmol/L (3.5-5.1); SODIUM 141 mmol/L (136-145); TCO2 25 mmol/L (25-35)
[2016-07-30] MEDS: HUMULIN R SUBQ SCH ×4 (07:16→20:54)
[2016-07-30] MEDS ORDERED: FENTANYL ONE (08:11)
[2016-07-30] MEDS ORDERED: DIPRIVAN 1% 0 MG/0 ML BOTTLE ONE (08:11)
[2016-07-30] MEDS: LOVENOX SUBQ SCH (08:28)
[2016-07-30] MEDS: NEURONTIN PO SCH ×4 (08:28→20:53)
[2016-07-30] MEDS: PROTONIX PO SCH (08:28)
[2016-07-30] MEDS: PROSCAR PO SCH (08:28)
[2016-07-30] MEDS: ASPIRIN EC PO SCH (08:28)
[2016-07-30] MEDS: THERA M PLUS PO SCH (08:28)
[2016-07-30] MEDS: VITAMIN B-12 PO SCH (08:28)
--- NOTE | 2016-07-30 10:49 | PROGRESS NOTE ---
DATE: 07/30/2016 SUBJECTIVE: This patient states that he is feeling better. He is in the ICU. He is still on pressors. We will try again to wean this patient off pressors. He has no complaints today. Family member is at the bedside, his . OBJECTIVE: Vital Signs: Temperature 97.1 degrees, pulse 67, respiratory rate 12, blood pressure 97/65, and O2 saturation 96% on room air. HEENT: Head normocephalic. No trauma. PERRLA. Neck: Supple. No JVD. No masses. Central trachea. Chest: Clear to auscultation. No wheezing. No rales. He has a midline scar from previous CABG that looks normal. Abdomen: Soft, nontender, nondistended. No hepatosplenomegaly. Cardiovascular: RRR. No murmurs. Extremities: No edema. No clubbing. No cyanosis. Neurological: The patient is alert and oriented x2. He is not oriented in time. He is able to maintain a conversation and recognize people. He moves all 4 extremities. He is weak and basically he is bed-bound at home. LABORATORY DATA: WBC 11.6, hemoglobin 11.8, hematocrit 37, platelets 451,000. Sodium 141, potassium 3.9, chloride 104, bicarbonate 25, BUN 17, creatinine 0.9, glucose 208, calcium 9.1. Troponin 4.2, down from 4.6. ASSESSMENT AND PLAN: 1. Ery-FH-hplulcnbi myocardial infarction. This patient has been placed on aspirin. I already stopped the Plavix, and I will put this patient just on Lovenox daily 40. I am following the recommendations of the cardiology department. 2. Probably this increase of troponins or enw-NC-rbzuxoxni myocardial infarction is secondary to sepsis. This patient has been having urinary tract infection and sepsis recurrently. 3. Possible urinary tract infection/sepsis. This patient is still on pressors, and I put this patient on antibiotics. We will continue with the same management. 4. Hypertension. Actually, this patient has low blood pressure/cardiogenic shock versus septic shock. This patient is still on pressors. This patient's troponins are elevated, and he was admitted under the diagnosis of uti-YL-ofqhdvmiw myocardial infarction, but the possibility of septic shock can not be ruled out. 5. Hypotension, as above. 6. Dyslipidemia. Continue with statins. 7. Type 2 diabetes. Continue with sliding scale insulin and pattern of blood sugar. 8. History of coronary artery disease, status post coronary artery bypass graft, aware. 9. History of cerebrovascular accident. We will monitor. 10. Normal pressure hydrocephalus, status post ventriculoperitoneal shunt placement. We are not having any problem at this moment. We will monitor. 11. Constipation. I will start this patient today on MiraLAX. CRITICAL CARE TIME: The critical care time is 45 minutes. cc: Juanpablo Giles MD
[2016-07-30] MEDS: LEVOPHED 8 MG in D5 1/2 NS 250 ML IV SCH (13:42)
--- NOTE | 2016-07-30 13:44 | ECHO REPORT ---
ORDER DATE: 07/29/2016 PROCEDURE: Echocardiogram. DATE OF STUDY: 07/29/2016. ECHOCARDIOGRAPHIC MEASUREMENTS: 1. Interventricular septum 1.2. 2. Left ventricular posterior wall 1.1. 3. Diastolic diameter 5.3. 4. Left atrium 4.8. 5. Aorta 3.4. INTERPRETATION: 1. Aortic valve leaflets were sclerosed, trileaflet opening normally. 2. Pulmonic valve was normal. There is trace pulmonary regurgitation. 3. Mitral valve was normal. There is mitral annular calcification. 4. Tricuspid valve was normal. 5. Normal left ventricular cavity size. Estimated ejection fraction of 35% to 40%. There is anteroseptal and apical hypokinesis. 6. Peak velocity across the aortic valve less than 2 m/sec. There is no aortic stenosis or regurgitation. 7. There is mild mitral regurgitation. 8. Mild tricuspid regurgitation. Peak velocity across the tricuspid valve was 3.4 m/sec. 9. Pulmonary artery systolic pressure of 56 mmHg. There is pulmonary arterial hypertension. 10. There is no pericardial effusion or obvious intracardiac mass or thrombus seen. cc: MD Evan Weston MD
[2016-07-30] MEDS ORDERED: NS 500 ML ONE (14:26)
--- NOTE | 2016-07-30 16:02 | Diag Imaging Result Document ---
PROCEDURE NAME: CHEST-PORTABLE - 07/30/2016 PORTABLE CHEST AT 1510 HOURS: FINDINGS: Compared with 07/28/2016. There has been interval insertion of a PICC line from the right. The tip of the PIC-line is at the expected location of the distal superior vena cava. There is increased subsegmental atelectasis at the bilateral lung bases compared to the previous exam. No other interval changes are noted. IMPRESSION: 1. Tip of PIC-line at distal superior vena cava. 2. Increased subsegmental atelectasis at lung bases. [facility]
[2016-07-30] MEDS: ZOCOR PO SCH (20:53)
[2016-07-30] MEDS: CELEXA PO SCH (20:58)
[2016-07-31] MEDS: VANCOMYCIN 1,500 MG in NS 250 ML IV SCH (01:57)
[2016-07-31] MEDS: ZOSYN 3.375 GM/NS 3.375 GM/50 ML IVPB IV SCH ×4 (03:50→20:40)
[2016-07-31] MEDS: LEVOPHED 8 MG in D5 1/2 NS 250 ML IV SCH (05:15)
[2016-07-31] MEDS: HUMULIN R SUBQ SCH ×4 (06:12→20:42)
[2016-07-31 06:13] LABS: MANUAL DIFF NEEDED? NO
[2016-07-31 06:15] LABS: BASO% 0.3 % (0.0-0.8); EOS# 0.19 X1000 (0.0-0.7); EOS% 2.2 % (0.0-10.0); HEMATOCRIT 29.1 % (42.0-52.0); HEMOGLOBIN 9.1 g/dL (14.0-18.0); IMM GRAN# 0.04 X1000 (0.0-0.04); IMM GRAN% 0.5 % (0.0-0.5); LYMPH# 1.52 X1000 (1.2-3.4); LYMPH% 17.5 % (20.5-51.1); MCH 28.5 PG (27-31); MCHC 31.3 g/dL (33-37); MCV 91.2 FL (81-99); MONO# 0.77 X1000 (0.11-0.59); MONO% 8.9 % (1.7-9.3); MPV 9.9 FL (7.4-10.4); NEUT% 70.6 % (42.2-75.2); PLT 394 X1000 (130-400); RBC 3.19 XMIL (4.7-6.1)
[2016-07-31 06:44] LABS: AGAP 11; BUN 16 mg/dL (8-22); CALCIUM 7.3 mg/dL (8.8-10.2); CHLORIDE 109 mmol/L (98-107); COSMO 288; POTASSIUM 3.2 mmol/L (3.5-5.1); SODIUM 143 mmol/L (136-145); TCO2 23 mmol/L (25-35)
[2016-07-31] MEDS: THERA M PLUS PO SCH (08:19)
[2016-07-31] MEDS: LOVENOX SUBQ SCH (08:19)
[2016-07-31] MEDS: PROSCAR PO SCH (08:19)
[2016-07-31] MEDS: PROTONIX PO SCH (08:19)
[2016-07-31] MEDS: NEURONTIN PO SCH ×4 (08:19→20:41)
[2016-07-31] MEDS: VITAMIN B-12 PO SCH (08:19)
[2016-07-31] MEDS: MIRALAX PO SCH (08:19)
[2016-07-31] MEDS: ASPIRIN EC PO SCH (08:19)
[2016-07-31] MEDS ORDERED: KLOR-CON PO ONE (08:38)
--- NOTE | 2016-07-31 10:45 | PROGRESS NOTE ---
DATE: 07/31/2016 SUBJECTIVE: This patient states that he is feeling better. He is still in the ICU. We stopped the pressors today in the morning, and the blood pressure has been stable. I will monitor this patient's blood pressure 1 more day in the ICU, and hopefully tomorrow he can be transferred to the medical floor. He has no complaints today. OBJECTIVE: Vital Signs: Temperature 97.4 degrees, pulse 55, respiratory rate 17, blood pressure 119/55, and oxygen saturation 97% on 2 liters of nasal cannula. HEENT: Head normocephalic. No trauma. PERRLA. Neck: Supple. No JVD. No masses. Central trachea. Chest: Clear to auscultation. No wheezing. No rales. He has a midline scar from previous CABG that looks normal. Cardiovascular: RRR. No murmurs. Abdomen: Soft, nontender, nondistended. No hepatosplenomegaly. Extremities: No edema. No clubbing. No cyanosis. Neurological: The patient is alert and oriented x2. He is not oriented in time, but he is answering all of my questions appropriately. He moves all 4 extremities. He has generalized weakness, but basically he is bed bound at home, as per the . LABORATORY DATA: WBC 8.6, hemoglobin 9.1, hematocrit 29.1, platelets 394,000. Sodium 143, potassium 3.2, chloride 109, bicarbonate 23, BUN 16, creatinine 0.8, glucose 138, calcium 7.3. ASSESSMENT AND PLAN: 1. Hsb-ME-vmqndirrd myocardial infarction. I will continue with the same management. This patient is on aspirin, and the cardiology department is following this patient. He is not complaining of chest pain. 2. Shock, that could be secondary to being lyy-LR-gvuasmmrt myocardial infarction/cardiogenic or secondary to sepsis. This is getting better. He is off pressors today. I will continue to monitor. 3. Urinary tract infection/sepsis. This patient is off pressors today. I will monitor this patient for 1 more day in the intensive care unit. I will continue with the same antibiotics. We have a positive urine culture that showed Escherichia coli. 4. Hypertension. Actually, the blood pressure has been borderline low. We will continue to monitor. 5. Hypotension, as above. 6. Dyslipidemia. Continue with statins. 7. Type 2 diabetes. Continue with sliding scale insulin and pattern of blood sugar. 8. History of coronary disease, status post coronary artery bypass grafting, aware. 9. History of cerebrovascular accident. We will monitor. 10. Normal pressure hydrocephalus, status post ventriculoperitoneal shunt. We are not having any problem at this moment with the ventriculoperitoneal shunt, no headaches and no mental status changes. 11. Constipation. Continue with MiraLAX. CRITICAL CARE TIME: 40 minutes. cc: Juanpablo Giles MD
[2016-07-31] MEDS: ZOCOR PO SCH (20:41)
[2016-07-31] MEDS: CELEXA PO SCH (20:41)
[2016-08-01] MEDS: ZOSYN 3.375 GM/NS 3.375 GM/50 ML IVPB IV SCH ×3 (03:29→16:45)
[2016-08-01 05:17] LABS: MANUAL DIFF NEEDED? NO
[2016-08-01 05:56] LABS: BASO% 0.3 % (0.0-0.8); EOS# 0.21 X1000 (0.0-0.7); EOS% 2.9 % (0.0-10.0); HEMOGLOBIN 9.6 g/dL (14.0-18.0); IMM GRAN# 0.02 X1000 (0.0-0.04); IMM GRAN% 0.3 % (0.0-0.5); LYMPH# 1.46 X1000 (1.2-3.4); LYMPH% 20.2 % (20.5-51.1); MCH 28.4 PG (27-31); MCV 91.7 FL (81-99); MONO% 9.7 % (1.7-9.3); NEUT% 66.6 % (42.2-75.2); PLT 372 X1000 (130-400); RBC 3.38 XMIL (4.7-6.1)
[2016-08-01 06:06] LABS: AGAP 10; BUN 16 mg/dL (8-22); CALCIUM 8.7 mg/dL (8.8-10.2); CHLORIDE 107 mmol/L (98-107); COSMO 285; POTASSIUM 3.9 mmol/L (3.5-5.1); SODIUM 142 mmol/L (136-145); TCO2 25 mmol/L (25-35)
[2016-08-01] MEDS: HUMULIN R SUBQ SCH ×4 (07:07→21:24)
[2016-08-01] MEDS: NEURONTIN PO SCH ×4 (08:21→21:22)
[2016-08-01] MEDS: PRINIVIL PO SCH (08:21)
[2016-08-01] MEDS: MIRALAX PO SCH (08:21)
[2016-08-01] MEDS: PROSCAR PO SCH (08:22)
[2016-08-01] MEDS: ASPIRIN EC PO SCH (08:22)
[2016-08-01] MEDS: PROTONIX PO SCH (08:22)
[2016-08-01] MEDS: VITAMIN B-12 PO SCH (08:22)
[2016-08-01] MEDS: LOVENOX SUBQ SCH (08:22)
[2016-08-01] MEDS: THERA M PLUS PO SCH (08:22)
--- NOTE | 2016-08-01 11:15 | PROGRESS NOTE ---
DATE: 08/01/2016 SUBJECTIVE: This patient stated that he is feeling better. No acute events overnight. The blood pressure has been good without pressors. OBJECTIVE: Vital signs: Temperature is 92.7, pulse 59, respiratory rate 24, blood pressure 126/69, oxygen saturation 92% on room air. HEENT: Head is normocephalic and atraumatic. PERRLA. Neck: Supple. No JVD. No masses. Central trachea. Chest: Clear to auscultation. No wheezing. No rales. Abdomen: Soft, nontender, nondistended. No hepatosplenomegaly. Extremities: No edema, no clubbing, no cyanosis. Neurologic: The patient is alert and oriented x2. He is not oriented to time, but he is answering all of my questions appropriately. He moves all 4 extremities. He has generalized weakness, but basically he is bedbound at home as per . DIAGNOSTIC DATA: WBC is 7.2, hemoglobin 9.6, hematocrit 31, platelets 372. Sodium is 142, potassium 3.9, chloride 107, bicarbonate 25, BUN is 16, creatinine 0.9, glucose 105, calcium 8.7. Troponin 3.9. ASSESSMENT AND PLAN: 1. Cbs-OC-eutozsygq myocardial infarction. We will continue with the same management. This patient is on aspirin, and Cardiology department is following this patient. He is not complaining of chest pain at this moment. He is breathing fine. 2. Shock, likely secondary to sou-GE-miwfzrmuq myocardial infarction/cardiogenic or secondary to sepsis. This is getting better. He is off pressors today. We will continue to monitor. 3. Urinary tract infection. Continue with the same management for now. 4. Hypertension. Actually the blood pressure has been stable. Continue with the same management. 5. Dyslipidemia. Continue with statins. 6. Type 2 diabetes. Continue with sliding scale insulin and pattern blood sugar. 7. History of coronary artery disease, status post CABG. Aware. 8. History of cerebrovascular accident. We will monitor. 9. Normal pressure hydrocephalus, status post INTERNATIONAL FLIGHT ATTENDANT shunt. We are not having any problem at this moment with this INTERNATIONAL FLIGHT ATTENDANT shunt. No headaches. No mental status changes. 10.Constipation. Continue with MiraLAX. cc: Juanpablo Giles MD
[2016-08-01] MEDS ORDERED: CALMOSEPTINE OINTMENT TOP PRN (14:01)
[2016-08-01] MEDS: VANCOMYCIN 1,500 MG in NS 250 ML IV SCH (16:39)
--- NOTE | 2016-08-01 18:59 | CONSULTATION ---
DATE OF CONSULTATION: 08/01/2016 CONCLUSION: The patient has a urinary tract infection. He has a history of recurrent urinary tract infections. RECOMMENDATIONS: I have switched the patient from vancomycin and Zosyn to Ancef. I have also ordered a renal ultrasound and measurement of the postvoid residual urine in the bladder. DISCUSSION: This patient is unable to provide a history. It was primarily provided by his . The patient developed an altered mental status. He was admitted to the hospital. He has been found to have an Escherichia coli urinary tract infection. His blood cultures are sterile. Chest x-ray shows atelectasis. The patient's urinalysis showed a lot of white cells, but no bacteria. Creatinine 0.9. GFR is greater than 60. CBC shows a white count of 7230, hemoglobin 9.6, and platelet count 372,000. PAST MEDICAL HISTORY/REVIEW OF SYSTEMS: Eyes and Ears: The patient has no difficulty hearing or seeing. Neck: No meningismus. Respiratory: No cough or shortness of breath. Cardiac: No chest pain or palpitations. Gastrointestinal: No nausea, vomiting, or diarrhea. The patient is incontinent of stool. Endocrine: The patient has diabetes but not thyroid disease. Bones, joints, and muscles: Patient has generalized weakness, especially in his legs to the point that he is basically bed bound. He is unable to walk. Integument: No rash. The remainder of the patient's review of systems was completed and was negative. Neurologic: The patient is incontinent of urine and stool PREVIOUS HOSPITALIZATIONS AND OPERATIONS: He has had surgery for normal pressure hydrocephalus consisting of a DAIRY MANAGEMENT SPECIALIST shunt. He has had coronary artery bypass grafting. He has also had removal of a renal cyst. MEDICAL DISEASES: Positive for coronary artery disease, diabetes mellitus, hypertension, generalized debility, dementia, benign prostatic hypertrophy, hyperlipidemia, and fecal and urine incontinence. INFECTIOUS DISEASE HISTORY: Positive for pneumonia and urinary tract infection. FAMILY HISTORY: Positive for diabetes mellitus, hypertension, myocardial infarction, and cancer. SOCIAL HISTORY: [place] They have a dog as a pet. He does not smoke cigarettes or drink alcoholic beverages. ALLERGIES: He has no known drug allergies. HOME MEDICATIONS: Include Flomax, Zocor, Protonix, multivitamins, Glucophage, Prinivil, glipizide, gabapentin, finasteride, B12, Celexa, and aspirin. PHYSICAL EXAMINATION: Vital Signs: Temperature is 97.9 degrees, pulse 686, respirations 17, blood pressure 105/57. General: This elderly male looks chronically ill. Head eyes, ears, nose, and throat: He can hear my spoken words. He can see near objects. He is wearing dentures. No drainage is noted from his nose or ears. Neck: No meningismus. Lungs: Clear to auscultation. Cardiovascular: Regular heart rate. Abdomen and Flanks: Soft and nontender. Neurologic: Patient is awake. He can move his arms. He can barely move his legs. There is no tremor. His sensation was intact to touch. When I asked him any questions about his medical history, he could not answer them. There was no tremor. Integument: No rash noted. Thank you for the consult. cc: Eder Dee MD
[2016-08-01] MEDS: KEFZOL 2 GM/D5W 2 GM/50 ML IVPB IV SCH (19:48)
[2016-08-01] MEDS: CELEXA PO SCH (21:22)
[2016-08-01] MEDS: ZOCOR PO SCH (21:23)
[2016-08-02] MEDS: KEFZOL 2 GM/D5W 2 GM/50 ML IVPB IV SCH ×3 (02:30→17:43)
[2016-08-02] MEDS: HUMULIN R SUBQ SCH ×4 (06:22→23:10)
[2016-08-02 07:30] LABS: MANUAL DIFF NEEDED? NO
[2016-08-02 07:31] LABS: BASO% 0.3 % (0.0-0.8); EOS# 0.21 X1000 (0.0-0.7); EOS% 2.3 % (0.0-10.0); HEMATOCRIT 33.1 % (42.0-52.0); HEMOGLOBIN 10.2 g/dL (14.0-18.0); IMM GRAN# 0.02 X1000 (0.0-0.04); IMM GRAN% 0.2 % (0.0-0.5); LYMPH# 1.31 X1000 (1.2-3.4); LYMPH% 14.6 % (20.5-51.1); MCH 28.4 PG (27-31); MCHC 30.8 g/dL (33-37); MCV 92.2 FL (81-99); MONO# 0.83 X1000 (0.11-0.59); MONO% 9.3 % (1.7-9.3); MPV 10.1 FL (7.4-10.4); NEUT% 73.3 % (42.2-75.2); PLT 379 X1000 (130-400); RBC 3.59 XMIL (4.7-6.1)
[2016-08-02 07:59] LABS: AGAP 12; BUN 16 mg/dL (8-22); CALCIUM 8.9 mg/dL (8.8-10.2); CHLORIDE 106 mmol/L (98-107); COSMO 288; POTASSIUM 3.7 mmol/L (3.5-5.1); SODIUM 143 mmol/L (136-145); TCO2 25 mmol/L (25-35)
[2016-08-02] MEDS: PROSCAR PO SCH (10:08)
[2016-08-02] MEDS: PRINIVIL PO SCH (10:08)
[2016-08-02] MEDS: MIRALAX PO SCH (10:08)
[2016-08-02] MEDS: THERA M PLUS PO SCH (10:08)
[2016-08-02] MEDS: ASPIRIN EC PO SCH (10:08)
[2016-08-02] MEDS: VITAMIN B-12 PO SCH (10:08)
[2016-08-02] MEDS: PROTONIX PO SCH (10:08)
[2016-08-02] MEDS: NEURONTIN PO SCH ×4 (10:08→23:10)
[2016-08-02] MEDS: LOVENOX SUBQ SCH (10:08)
--- NOTE | 2016-08-02 12:48 | Diag Imaging Result Document ---
PROCEDURE NAME: US RENAL 2 (RETROPER) COMPLETE - 08/02/2016 RENAL ULTRASOUND: COMPARISON: None. FINDINGS: There are some rather large left renal cysts that are minimally septated but overall benign in appearance. One in particular is very large measuring 8.7 x 8.8 x 7.5 cm. No hydronephrosis. The right kidney is normal. Renal sizes are normal. The right kidney measures 11.9 x 6.3 x 6.5 cm. The left kidney measures 13.2 x 7.8 x 7.2 cm. Cortex measures 9 mm bilaterally. There appears to be a mass at the mucosa, at the base of the urinary bladder. This measures about 4.2 x 1.9 cm. No free fluid. The patient apparently could not urinate to examine for postvoid residual. IMPRESSION: 1. Urinary bladder mass. Recommend further evaluation and Urology referral. 2. Large left renal cysts.
--- NOTE | 2016-08-02 16:42 | PROGRESS NOTE ---
DATE: 08/02/2016 SUBJECTIVE: This patient states that he is feeling better. No acute events overnight. Blood pressure has been good without pressors. He is eating okay. No pain. OBJECTIVE: Vital Signs: Temperature 97.8 degrees, pulse 82, respiratory rate 17, blood pressure 127/87, O2 saturation 94 on room air. HEENT: Head normocephalic. No trauma. PERRLA. Neck: Supple. No JVD. No masses. Central trachea. Chest: Clear to auscultation. No wheezing. No rales. Abdomen: Soft, nontender, nondistended. No hepatosplenomegaly. Extremities: No edema. No clubbing. No cyanosis. Neurological: The patient is alert and oriented x2. He is not oriented in time. He moves all 4 extremities. He has generalized weakness but basically he is bedbound at home as per his . LABORATORY: WBC 8.9, hemoglobin 10.2, hematocrit 33.1, platelets 379,000. Sodium 143, potassium 3.7, chloride 106, bicarbonate 25, BUN 16, creatinine 1.1, glucose 135, calcium 8.9. ASSESSMENT AND PLAN: 1. Non-ST elevation myocardial infarction. Will continue with the same management. This patient is on aspirin. Cardiology Department is following this patient. He is not complaining of chest pain at this moment. We will continue with just medical management. 2. Shock likely secondary likely cardiogenic versus septic. This is getting better. He has been off pressors for a couple days. Will continue to monitor. 3. Urinary tract infection. This patient is on antibiotics. Infectious Disease Department evaluated this patient. A renal ultrasound was performed and showed a bladder mass. 4. Hypertension. Blood pressure is stable. Continue with the same management. 5. Dyslipidemia. Continue with statins. 6. Type 2 diabetes. Continue with the sliding scale insulin and pattern of blood sugar. 7. History of coronary artery disease status post coronary artery bypass graft. Aware. 8. History of cerebrovascular accident. Will monitor. 9. Normal pressure hydrocephalus status post ventriculoperitoneal shunt, stable. 10. Constipation. Continue with MiraLAX. This patient was admitted secondary to low blood pressure, increased troponins. This patient was transferred to the intensive care unit and he was on pressors. We found out that the urine was again infected. We performed a renal ultrasound that showed a bladder mass today. When this patient was admitted I had a large conversation with his because he was confused and this patient ended up being do not resuscitate level 2. His today is not here and this patient does not know about the bladder mass. We need to talk to them both to see if they want to continue with treatment and go ahead and call urology. This patient is doing much better. He is stable. cc: Juanpablo Giles MD
[2016-08-02] MEDS ORDERED: DUONEB (A & A) INH ONE (19:09)
--- NOTE | 2016-08-02 20:05 | PROGRESS NOTE ---
DATE: 08/02/2016 PRESENT ILLNESS: The patient has a symptomatic E. coli urinary tract infection. Yesterday I ordered a renal ultrasound and it showed that there is a mass in the bladder. MEDICATIONS: The patient is receiving IV cefazolin. PHYSICAL EXAMINATION: Vital Signs: Temperature 97.8 degrees, pulse 82, respirations 17, blood pressure 127/87. General: This is an ill-appearing, elderly male. He is in no acute distress. Lungs: Clear to auscultation. Cardiovascular: Heart rate is regular. Abdomen: Soft and nontender. LAB AND X-RAY: CBC for today shows a white count of 8950, hemoglobin 10.2, and platelet count 379,000. Creatinine is 1.1. GFR is greater than 60. The patient's renal ultrasound showed a mass in the bladder. ASSESSMENT AND PLAN: I discussed the patient's findings with his and the patient. The wants to have a urologist see the patient and discuss with her what the urologist feels needs to be done. Therefore, the plan is to keep going with his antibiotics and I have put a consultation in for Dr. Lamb to see the patient about the bladder mass. COMORBIDITIES: Diabetes mellitus, generalized debility, dementia, benign prostatic hypertrophy. cc: Eder Dee MD
[2016-08-02] MEDS: ZOCOR PO SCH (23:10)
[2016-08-02] MEDS: CELEXA PO SCH (23:10)
[2016-08-02] MEDS: DUONEB (A & A) INH SCH (23:37)
[2016-08-03] MEDS: KEFZOL 2 GM/D5W 2 GM/50 ML IVPB IV SCH ×3 (02:27→17:49)
[2016-08-03] MEDS: DUONEB (A & A) INH SCH ×6 (03:25→23:13)
[2016-08-03] MEDS: FLAGYL 500 MG/NS 500 MG/100 ML IVPB IV SCH ×2 (05:29)
[2016-08-03 06:33] LABS: BASO% 0.1 % (0.0-0.8); HEMATOCRIT 35.8 % (42.0-52.0); HEMOGLOBIN 11.1 g/dL (14.0-18.0); IMM GRAN# 0.04 X1000 (0.0-0.04); IMM GRAN% 0.3 % (0.0-0.5); LYMPH% 3.8 % (20.5-51.1); MANUAL DIFF NEEDED? YES; MCH 28.2 PG (27-31); MCV 91.1 FL (81-99); MONO# 1.46 X1000 (0.11-0.59); MONO% 9.2 % (1.7-9.3); MPV 9.8 FL (7.4-10.4); NEUT% 86.6 % (42.2-75.2); PLT 450 X1000 (130-400); RBC 3.93 XMIL (4.7-6.1)
[2016-08-03 06:44] LABS: CALCIUM 8.9 mg/dL (8.8-10.2); POTASSIUM 3.6 mmol/L (3.5-5.1)
[2016-08-03] MEDS: HUMULIN R SUBQ SCH ×4 (06:47→21:06)
[2016-08-03 07:27] LABS: BANDS 10 % (0-1); LYMPHS 2 % (21-51); MONO 2 % (1-9)
[2016-08-03 07:36] LABS: ALLEN TEST YES; BE 0.5 mmoll (-3.0-3.0); BLOOD TYPE ARTERIAL; DRAW SITE R RADIAL; METHB 1.5 % (0.0-1.5); O2(CT) 14.8 mL/dL (15.0-23.0); PCO2(98.6) 36 mmHg (35-45); PO2(98.6) 69 mmHg (60-100); SAMPLE BLOOD; SAO2 97.7 % (95.0-100.0); THB 11.1 g/dL (11.5-17.4); pH(98.6) 7.44 (7.35-7.45)
[2016-08-03 07:37] LABS: MODALITY VENTIMASK
[2016-08-03] MEDS: LOVENOX SUBQ SCH ×2 (07:41→08:01)
--- NOTE | 2016-08-03 07:59 | Diag Imaging Result Document ---
PROCEDURE NAME: CHEST-PORTABLE - 08/03/2016 SINGLE FRONTAL RADIOGRAPH OF THE CHEST: COMPARISON: 08/02/2016. FINDINGS: Right PICC line is stable. There is worsening infiltrate at the right lung base. There is probably a component of atelectasis as well. There appear to be bilateral effusions that are essentially stable. Cardiac silhouette is stable. IMPRESSION: Worsening infiltrate and/or atelectasis at the right lung base.
[2016-08-03] MEDS: THERA M PLUS PO SCH (08:01)
[2016-08-03] MEDS: ASPIRIN EC PO SCH (08:01)
[2016-08-03] MEDS: VITAMIN B-12 PO SCH (08:01)
[2016-08-03] MEDS: MIRALAX PO SCH (08:01)
[2016-08-03] MEDS: PRINIVIL PO SCH (08:02)
[2016-08-03] MEDS: NEURONTIN PO SCH ×4 (08:02→20:57)
[2016-08-03] MEDS: PROSCAR PO SCH (08:02)
[2016-08-03] MEDS: PROTONIX PO SCH (08:02)
--- NOTE | 2016-08-03 08:09 | Diag Imaging Result Document ---
PROCEDURE NAME: CHEST-PORTABLE - 08/02/2016 SINGLE FRONTAL RADIOGRAPH OF THE CHEST: COMPARISON: 07/30/2016. FINDINGS: Right PICC line is stable. There appears to be better aeration of the right lung base with slight decrease in atelectasis. Bilateral effusions are essentially stable. No new consolidations are identified. Cardiac silhouette is stable. IMPRESSION: Better aeration of the right lung base. Essentially stable, otherwise.
[2016-08-03] MEDS ORDERED: ZITHROMAX 500 MG/NS 500 MG/250 ML IVPB IV ONE (08:22)
[2016-08-03] MEDS ORDERED: VANCOMYCIN IV PER PHARMACY MISC SCH (08:30)
[2016-08-03] MEDS ORDERED: SOLU-CORTEF IV ONE (08:48)
[2016-08-03] MEDS: LEVOPHED 8 MG in D5 1/2 NS 250 ML IV SCH (08:54)
[2016-08-03] MEDS ORDERED: CALCIUM CHLORIDE 1 GM in NS 100 ML IV ONE (09:00)
[2016-08-03] MEDS: ZOSYN 3.375 GM/NS 3.375 GM/50 ML IVPB IV SCH ×3 (09:49→20:56)
--- NOTE | 2016-08-03 10:07 | PROGRESS NOTE ---
DATE: 08/03/2016 SUBJECTIVE: As per nursing staff, this morning, blood pressure started coming down from 6:00 a.m. to 7:00 p.m., 60 and 70 systolic blood pressure. The patient is feeling a little bit dizzy. No fever reported. OBJECTIVE: Vital Signs: Temperature 98.7 degrees, heart rate 82, respiratory rate 17, blood pressure 91/50, O2 saturation 94% on Venturi mask at 50%. General Examination: This is a chronically ill-looking and frail, 81-year-old, male, lying in bed, in no acute distress. HEENT: Head is normocephalic and atraumatic. Anicteric sclerae and pale conjunctivae. Mucous membranes are moist. Neck: Supple. No JVD noted. No carotid bruits. No lymphadenopathy. No thyromegaly. Cardiovascular Examination: S1 and S2 heard. No murmurs, gallops, or rubs. Regular rate and rhythm. Respiratory Examination: Coarse breath sounds in both pulmonary mazariegos with some rales also. Patient is not using any accessory muscles or having work of breathing. Abdomen: Soft, nontender to palpation. Bowel sounds present. No organomegaly. Extremities: No clubbing, cyanosis, or edema. Peripheral pulses present but faint. Neurological Examination: Patient is a little bit sleepy but answers basic questions. Moves 4 extremities. He is not oriented to time or place. Laboratory Data: White cell count 15.82, hemoglobin 11.1, hematocrit 35.8, platelets 450,000. ABG shows pH 7.44, pCO2 36, PO2 69. BMP shows worsening creatinine from 1.1 yesterday to 1.4 today, and glucose 173. ASSESSMENT AND PLAN: 1. Shock, likely secondary to cardiogenic versus septic. Today, blood pressure has dropped to 60s and 70s systolic blood pressure. The patient was a little bit dizzy and more sleepy so I think this patient needs to be started on vasopressors, in this case Levophed. He is going to be transferred to the intensive care unit. 2. Non-ST segment elevation myocardial infarction. Cardiology is following this patient. The patient currently is on aspirin. Not complaining of any chest pain recently. We will continue with the same management. 3. Urinary tract infection. Patient is on antibiotics. Dr. Dee is following this patient. Currently, he is on cefazolin 2 g intravenous every 8 hours. 4. Hypertension. Blood pressure has dropped as I have mentioned before so of course, we are going to hold any blood pressure medication. We will go from there. 5. Hyperlipidemia. We will continue with the statin. 6. Diabetes mellitus type 2. We will continue with the sliding scale insulin. 7. History of coronary artery disease, status post coronary artery bypass graft. Aware. 8. History of cerebrovascular accident. Aware. We will monitor him in the intensive care unit. 9. Normal pressure hydrocephalus, status post ventriculoperitoneal shunt, stable. 10. Constipation. We will continue with MiraLAX. 11. Acute kidney injury. Creatinine has started getting worse. That is because of low blood pressure and we are going to check a BMP tomorrow. cc: Raghavendra Romero MD
[2016-08-03 11:45] LABS: URINE SOURCE CATH
[2016-08-03 11:56] LABS: BILIRUBIN URINE NEGATIVE (NEGATIVE); BLOOD URINE SMALL (NEGATIVE); COLOR ORANGE; GLUCOSE URINE TRACE mg/dL (NEGATIVE); LEUKOCYTES URINE LARGE (NEGATIVE); NITRITE URINE NEGATIVE (NEGATIVE); PROTEIN URINE 100 mg/dL (NEGATIVE); SP GRAVITY URINE 1.014; TURBIDITY URINE TURBID (CLEAR); UROBILINOGEN URINE NORMAL (NORMAL)
[2016-08-03 12:03] LABS: UR EPITHELIAL CELLS >10 /HPF (<10); URINE BACTERIA NEGATIVE /HPF; URINE CULTURE NEEDED? YES; URINE MICRO REVIEW NEEDED? YES; URINE WBC TNTC /HPF (<10)
[2016-08-03 12:17] LABS: URINE CASTS NONE SEEN
[2016-08-03] MEDS ORDERED: VANCOMYCIN 1,500 MG in NS 250 ML IV SCH (13:00)
--- NOTE | 2016-08-03 19:25 | PROGRESS NOTE ---
DATE: 08/03/2016 PRESENT ILLNESS: The patient this afternoon had an episode of hypotension. It looks like he suffered an acute myocardial infarction. He may be septic as well. He had recently been started on treatment for a symptomatic E. coli urinary tract infection. On renal ultrasound the mass was seen in the bladder. MEDICATIONS: Patient was on IV cefazolin, today vancomycin and Zosyn were added. PHYSICAL EXAMINATION: Vital Signs: Temperature is 97.5 degrees, pulse 57, respirations 20, blood pressure 99/57. Generally: This is a fairly healthy-appearing elderly male. He is in no acute distress. He had some chest pain earlier but says he does not have any now. Lungs: Clear to auscultation. Cardiovascular: Regular heart rate. Abdomen: Soft without masses or tenderness. LAB AND X-RAY STUDIES: CBC today shows a white count of 15,820, hemoglobin 11.1 , and platelet count 450,000. Creatinine is 1.4. GFR is 49. Blood gases show a pH of 7.44, PO2 of 69, pCO2 of 36. Patient's chest x-ray shows worsening right lower lobe infiltrate. ASSESSMENT AND PLAN: The patient has had an acute myocardial infarction. He may be septic. His chest x-ray is getting worse and his creatinine is increasing. My plan would be to continue with Zosyn but stop vancomycin and stop Ancef and place the patient on Zyvox. The patient also has a bladder mass as seen on ultrasound. I stopped Celexa to avoid an adverse reaction with Zyvox. COMORBIDITIES: Include diabetes mellitus, generalized debility, dementia, benign prostatic hypertrophy, and as of today an acute myocardial infarction. cc: Eder Dee MD MTDD
--- NOTE | 2016-08-03 19:28 | CONSULTATION ---
DATE OF CONSULTATION: 08/03/2016 ATTENDING AND REFERRING PHYSICIAN: Hospitalist. HISTORY OF PRESENT ILLNESS: This 81-year-old male was admitted with sepsis syndrome and an TX. He was evaluated by infectious diseases who ordered a renal ultrasound. Renal ultrasound revealed large left renal cysts and a probable mucosal lesion of his bladder. The patient has a history of being admitted with febrile urinary tract infections. He also has a history of being incontinent of both urine and feces. The patient is somewhat confused, and his family is not in the hospital at this time. The patient did say he had surgery on his left kidney many years ago and he does not remember the name of the physician that removed the cyst. He is on Flomax. While in the hospital, he became very hypotensive and was transferred to the intensive care unit. This was to start vasopressors and to monitor his heart attack. PAST MEDICAL HISTORY: Coronary artery disease, diabetes, elevated cholesterol, fecal and urine incontinence. Normal pressure hydrocephalus. PAST SURGICAL HISTORY: Left renal cyst removal, normal pressure hydrocephalus with placement of a PATIENT SAFETY TECH shunt. Coronary artery bypass grafting. SOCIAL HISTORY: No tobacco or alcohol use. ALLERGIES: No known drug allergies. REVIEW OF SYSTEMS: He is a DNR level 2. The patient states he is not having any pain at present. He states he did not know he had a He catheter in place. PHYSICAL EXAMINATION: General: A mildly obese, age apparent, normally developed, white male, who is cooperative. HEENT: Normal for age. Lungs: Clear. Cardiovascular: Regular rate and rhythm. Abdomen: Obese soft, nontender. No hepatosplenomegaly or masses. Normal bowel sounds. : Uncircumcised male. Foreskin retracts. He catheter in place. Both testes are down and palpably normal. Rectal Exam: Deferred. Extremities: No clubbing, cyanosis, or edema. Neuro: He does move extremities when asked. He appears somewhat confused. LABORATORY EVALUATION: He has a white count of 15.82, hemoglobin 11.1, hematocrit 35.8, platelets are 450,000. Serum electrolytes are normal. BUN is 18. Creatinine is 1.4. A urinalysis had too numerous to count white cells, less than 10 red blood cells. Renal ultrasound revealed large left renal cysts, the largest nearly 9 cm in diameter. The bladder was distended with an apparent mucosal lesion. The patient could not void to get a postvoid residual scan. IMPRESSION: 1. Patient with multiple medical problems, currently with sepsis syndrome and probable heart attack. 2. Mucosal bladder lesion on ultrasound. 3. Probable history of urinary retention with overflow incontinence. RECOMMEND: 1. Will need cystoscopic exam to further evaluate his bladder after he recovers from his sepsis and TX. 2. Keep He catheter in place. 3. Will follow. Again, thank you for this consultation. cc: Evan Lamb MD
--- NOTE | 2016-08-03 19:30 | PROGRESS NOTE ---
DATE: 08/03/2016 ADDENDUM REPORT: PLAN: In starting the patient on Zyvox, I also stopped Celexa to avoid cause of potential adverse reaction. cc: Eder Dee MD
[2016-08-03] MEDS: CELEXA PO SCH (20:57)
[2016-08-03] MEDS: ZYVOX 600 MG/D5W 600 MG/300 ML IVPB IV SCH (20:57)
[2016-08-03] MEDS: ZOCOR PO SCH (20:57)
[2016-08-04] MEDS: LEVOPHED 8 MG in D5 1/2 NS 250 ML IV SCH (03:06)
[2016-08-04] MEDS: ZOSYN 3.375 GM/NS 3.375 GM/50 ML IVPB IV SCH ×4 (03:06→20:40)
[2016-08-04] MEDS: DUONEB (A & A) INH SCH ×6 (03:46→23:03)
[2016-08-04 05:56] LABS: MANUAL DIFF NEEDED? NO
[2016-08-04 06:12] LABS: CALCIUM 9.1 mg/dL (8.8-10.2); POTASSIUM 3.2 mmol/L (3.5-5.1)
[2016-08-04 06:14] LABS: BASO% 0.1 % (0.0-0.8); EOS# 0.04 X1000 (0.0-0.7); EOS% 0.3 % (0.0-10.0); HEMATOCRIT 30.5 % (42.0-52.0); HEMOGLOBIN 9.4 g/dL (14.0-18.0); IMM GRAN# 0.03 X1000 (0.0-0.04); IMM GRAN% 0.2 % (0.0-0.5); LYMPH# 1.33 X1000 (1.2-3.4); LYMPH% 9.3 % (20.5-51.1); MCH 28.1 PG (27-31); MCHC 30.8 g/dL (33-37); MCV 91.3 FL (81-99); MONO# 1.08 X1000 (0.11-0.59); MONO% 7.6 % (1.7-9.3); NEUT% 82.5 % (42.2-75.2); PLT 426 X1000 (130-400); RBC 3.34 XMIL (4.7-6.1)
[2016-08-04] MEDS: HUMULIN R SUBQ SCH ×4 (07:23→20:36)
[2016-08-04] MEDS ORDERED: ZITHROMAX 500 MG/NS 500 MG/250 ML IVPB IV SCH (08:30)
[2016-08-04] MEDS: LOVENOX SUBQ SCH (08:46)
[2016-08-04] MEDS: VITAMIN B-12 PO SCH (08:46)
[2016-08-04] MEDS: NEURONTIN PO SCH ×4 (08:46→20:35)
[2016-08-04] MEDS: THERA M PLUS PO SCH (08:46)
[2016-08-04] MEDS: PROTONIX PO SCH (08:46)
[2016-08-04] MEDS: ASPIRIN EC PO SCH (08:46)
[2016-08-04] MEDS: ZYVOX 600 MG/D5W 600 MG/300 ML IVPB IV SCH ×2 (08:49→20:40)
[2016-08-04] MEDS: MIRALAX PO SCH (09:00)
[2016-08-04] MEDS ORDERED: POTASSIUM CHLORIDE 60 MEQ in NS 500 ML IV ONE (10:11)
--- NOTE | 2016-08-04 11:36 | PROGRESS NOTE ---
DATE: 08/04/2016 SUBJECTIVE: The patient looks definitely much better. More awake and alert. Denies any complaints today. OBJECTIVE: Vital Signs: Temperature 96.4 degrees, heart rate 55, respiratory rate 18, blood pressure 114/54, O2 saturation 100% on 50% venturi mask. General examination: This is a chronically ill-looking and frail, 81-year-old male, lying in bed, in no acute distress. HEENT: Head is normocephalic, atraumatic. Anicteric sclerae and pale conjunctivae. Mucous membranes moist. Neck: Supple. No JVD noted. No carotid bruits. No lymphadenopathy. No thyromegaly. Cardiovascular: S1, S2 heard. No murmurs, gallops, or rubs. Regular rate and rhythm. Respiratory: Coarse breath sounds present in both pulmonary mazariegos with some rales also, but patient is not using any accessory muscles or having work of breathing. Abdomen: Soft, nontender to palpation. Bowel sounds present. No organomegaly. Extremities: No clubbing, cyanosis, or edema. Peripheral pulses present in both legs but faint. Neurological: Patient is definitely much more alert and oriented. Moves 4 extremities. Follow commands. LABORATORY DATA: White cell count 14.96, hemoglobin 9.4, hematocrit 30.5 platelets 426,000. BMP remarkable for creatinine 1.39 and potassium 3.2. ASSESSMENT AND PLAN: 1. Acute respiratory failure. Patient requiring to be on Venturi mask but when we tried to put him on nasal cannula he desaturated. This could be secondary to this myocardial infarction and also could be related to infiltrate in the right lung base. 2. Right lower lobe pneumonia. 3. Patient has been on cefazolin for a urinary tract infection but because of this low blood pressure. The patient has been started on antibiotics. Dr. Dee is following this patient. He decided to continue this patient on Zyvox and Zosyn. 4. Urinary tract infection. Patient has been on cefazolin but because he was started on Zosyn, we will continue with that medication. We will continue with the same management. 5. Hypertension. Of course, blood pressure is still low and patient is still requiring small doses of Levophed. Will continue monitoring this patient closely. 6. Hyperlipidemia. We will continue with the statin. 7. Diabetes mellitus type 2. We will continue with sliding scale insulin. 8. History of coronary artery disease, status post coronary artery bypass graft. Aware. 9. History of cerebrovascular accident. Aware. 10. Normal pressure hydrocephalus status post ventriculoperitoneal shunt. Stable. 11. Constipation. We will continue with MiraLAX. 12. Acute kidney injury. The creatinine is a little worse today at 1.3. We will continue with the same management. cc: Raghavendra Romero MD
--- NOTE | 2016-08-04 20:11 | PROGRESS NOTE ---
DATE: 08/04/2016 PRESENT ILLNESS: The patient the past day has suffered a myocardial infarction. He became hypotensive most likely due to the acute myocardial infarction. However, concerns were that the patient may have been septic also. We discovered on renal ultrasound that the patient has a mass in his bladder. He also had asymptomatic E. coli urinary tract infection. MEDICATIONS: The patient currently now is receiving Zyvox and Zosyn. PHYSICAL EXAMINATION: Vital Signs: Temperature is 97.5 degrees pulse 65, respirations 16, blood pressure 113/62. General: This is an ill-appearing, elderly male. He is in no acute distress. Lungs: Clear to auscultation. Cardiovascular: Regular heart rate. Abdomen: Soft and nontender. Neurologic: Patient is alert. He can move his extremities, but he is weak. There is no tremor. LABORATORY AND X-RAY: No new x-ray report today. CBC for today showed a white count of 14,260, hemoglobin 9.4, and platelet count 426,000. Creatinine is 1.3. GFR is 53. The patient had a urine culture positive for E. coli. The mostly recent urine culture is negative. Blood cultures are pending. ASSESSMENT AND PLAN: 1. The patient does have decubitus on cardial infarction. He may have an infection, too. My plan would be to continue the current antibiotics pending the final culture results. 2. Comorbidities include diabetes mellitus, generalized debility, dementia, benign prostatic hypertrophy and acute myocardial infarction. cc: Eder Dee MD
[2016-08-04] MEDS: ZOCOR PO SCH (20:35)
[2016-08-04] MEDS: CELEXA PO SCH (20:36)
[2016-08-05] MEDS: ZOSYN 3.375 GM/NS 3.375 GM/50 ML IVPB IV SCH ×4 (03:00→20:16)
[2016-08-05] MEDS: DUONEB (A & A) INH SCH ×6 (03:26→23:15)
[2016-08-05 05:32] LABS: MANUAL DIFF NEEDED? NO
[2016-08-05 05:44] LABS: BASO% 0.2 % (0.0-0.8); EOS# 0.37 X1000 (0.0-0.7); EOS% 3.4 % (0.0-10.0); HEMATOCRIT 29.4 % (42.0-52.0); HEMOGLOBIN 9.1 g/dL (14.0-18.0); LYMPH# 1.35 X1000 (1.2-3.4); LYMPH% 12.5 % (20.5-51.1); MCH 28.3 PG (27-31); MCV 91.6 FL (81-99); MONO# 0.75 X1000 (0.11-0.59); MPV 9.9 FL (7.4-10.4); NEUT% 76.9 % (42.2-75.2); PLT 380 X1000 (130-400); RBC 3.21 XMIL (4.7-6.1)
[2016-08-05 06:13] LABS: AGAP 8; BUN 19 mg/dL (8-22); CALCIUM 9.1 mg/dL (8.8-10.2); CHLORIDE 107 mmol/L (98-107); COSMO 287; POTASSIUM 3.8 mmol/L (3.5-5.1); SODIUM 140 mmol/L (136-145); TCO2 25 mmol/L (25-35)
[2016-08-05] MEDS: HUMULIN R SUBQ SCH ×4 (06:43→20:53)
[2016-08-05] MEDS: MIRALAX PO SCH (08:02)
[2016-08-05] MEDS: VITAMIN B-12 PO SCH (08:03)
[2016-08-05] MEDS: LOVENOX SUBQ SCH (08:03)
[2016-08-05] MEDS: ASPIRIN EC PO SCH (08:03)
[2016-08-05] MEDS: PROTONIX PO SCH (08:03)
[2016-08-05] MEDS: NEURONTIN PO SCH ×4 (08:03→20:16)
[2016-08-05] MEDS: THERA M PLUS PO SCH (08:03)
[2016-08-05] MEDS: ZYVOX 600 MG/D5W 600 MG/300 ML IVPB IV SCH ×2 (08:04→20:16)
--- NOTE | 2016-08-05 11:37 | PROGRESS NOTE ---
DATE: 08/05/2016 SUBJECTIVE: Patient reports feeling much better. More alert and awake. He denies any complaints today. Denies any fever or chills. OBJECTIVE: Vital Signs: Temperature 96.8 degrees, heart rate 59, respiratory rate 16, blood pressure 98/51, O2 saturation 98% on 4 L nasal cannula. General Examination: This is a chronically ill-looking and frail, 81-year-old, male, lying in bed, in no acute distress. HEENT: Head is normocephalic and atraumatic. Anicteric sclerae and pale conjunctivae. Mucous membranes moist. Neck: Supple. No JVD noted. No carotid bruits. No lymphadenopathy. No thyromegaly. Cardiovascular Examination: S1 and S2 heard. No murmurs, gallops, or rubs. Regular rate and rhythm. Respiratory Examination: Coarse breath sounds still present in both pulmonary mazareigos with some rales but patient is not using any accessory muscles or having work of breathing. Abdomen: Soft, nontender to palpation. Nondistended. Bowel sounds present. No organomegaly. Extremities: No clubbing, cyanosis, or edema. Peripheral pulses present in both legs. Neurological Examination: Patient is more alert and oriented. Moves 4 extremities. Laboratory Data: White cell count 10.78, hemoglobin 9.1, hematocrit 29.4, platelets 380,000. BMP unremarkable. ASSESSMENT AND PLAN: 1. Acute respiratory failure. The patient's oxygen needs are getting better. Yesterday, he was requiring Venturi mask. Today, he is using nasal cannula at 4 L per minute. We will continue with the same management. 2. Right lower lobe pneumonia. Patient is currently on Zosyn and Zyvox as per Dr. Eder Dee from infectious disease. We will continue with the same management. 3. Urinary tract infection. Patient on antibiotics as above. 4. Hypotension. Blood pressure is definitely low so patient is still requiring small doses of Levophed. We will continue trying to wean off of this medication. 5. Diabetes mellitus type 2. We will continue with sliding scale insulin. 6. Hyperlipidemia. We will continue with the statin. 7. History of coronary artery disease, status post coronary artery bypass graft. Aware. 8. History of cerebrovascular accident. Aware. 9. Normal pressure hydrocephalus, status post ventriculoperitoneal shunt, stable. 10. Acute kidney injury. The creatinine is back to normal. 11. Physical deconditioning. Physical therapy has been consulted and also palliative care team as per request of because this patient has been admitted to the hospital many times. cc: Raghavendra Romero MD
[2016-08-05] MEDS: ZOCOR PO SCH (20:16)
[2016-08-05] MEDS: CELEXA PO SCH (20:16)
[2016-08-06] MEDS: ZOSYN 3.375 GM/NS 3.375 GM/50 ML IVPB IV SCH ×3 (02:19→13:45)
[2016-08-06] MEDS: DUONEB (A & A) INH SCH ×6 (03:51→23:35)
[2016-08-06] MEDS: HUMULIN R SUBQ SCH ×4 (05:45→20:50)
[2016-08-06 06:24] LABS: MANUAL DIFF NEEDED? NO
[2016-08-06 06:27] LABS: BASO% 0.1 % (0.0-0.8); EOS# 0.36 X1000 (0.0-0.7); EOS% 4.6 % (0.0-10.0); HEMATOCRIT 28.6 % (42.0-52.0); HEMOGLOBIN 8.9 g/dL (14.0-18.0); LYMPH# 1.23 X1000 (1.2-3.4); LYMPH% 15.6 % (20.5-51.1); MCH 28.8 PG (27-31); MCHC 31.1 g/dL (33-37); MCV 92.6 FL (81-99); MONO% 6.3 % (1.7-9.3); MPV 9.9 FL (7.4-10.4); NEUT% 73.4 % (42.2-75.2); PLT 365 X1000 (130-400); RBC 3.09 XMIL (4.7-6.1)
[2016-08-06 06:47] LABS: AGAP 10; BUN 16 mg/dL (8-22); CHLORIDE 106 mmol/L (98-107); COSMO 287; POTASSIUM 3.9 mmol/L (3.5-5.1); SODIUM 142 mmol/L (136-145); TCO2 26 mmol/L (25-35)
[2016-08-06] MEDS: NEURONTIN PO SCH ×4 (08:24→20:46)
[2016-08-06] MEDS: VITAMIN B-12 PO SCH (08:24)
[2016-08-06] MEDS: ASPIRIN EC PO SCH (08:25)
[2016-08-06] MEDS: THERA M PLUS PO SCH (08:25)
[2016-08-06] MEDS: LOVENOX SUBQ SCH (08:25)
[2016-08-06] MEDS: PROTONIX PO SCH (08:25)
[2016-08-06] MEDS: MIRALAX PO SCH (08:25)
[2016-08-06] MEDS: ZYVOX 600 MG/D5W 600 MG/300 ML IVPB IV SCH (08:26)
--- NOTE | 2016-08-06 13:15 | PROGRESS NOTE ---
DATE: 08/06/2016 SUBJECTIVE: Patient reports feeling fine. Denies any complaint. Denies any fever, chills. OBJECTIVE: Vital Signs: Temperature 97.1 degrees, heart rate 71, respiratory rate 18, blood pressure 92/55, O2 saturation 100% 2 L nasal cannula. General Examination: This is a chronically ill-looking, frail 81-year-old male, lying in bed, in no acute distress. HEENT: Head is normocephalic, atraumatic. Anicteric sclerae and pale conjunctivae. Mucous membranes moist. Neck: Supple. No JVD noted. No carotid bruits. No lymphadenopathy. No thyromegaly. Cardiovascular: S1, S2 heard. No murmurs, gallops, or rubs. Regular rate and rhythm. Respiratory: Coarse breath sounds present still in both bases. Patient is not using any accessory muscles or having work of breathing. Abdomen: Soft, nontender to palpation. Bowel sounds present. No organomegaly. Extremities: No clubbing, cyanosis, or edema. Peripheral pulses present in both legs. Neurological: Patient is alert, awake, moves 4 extremities. LABORATORY DATA: White cell count 7.8, hemoglobin 8.9, hematocrit 28.6, platelets 265,000. BMP is unremarkable. ASSESSMENT AND PLAN: 1. Acute respiratory failure. Patient's oxygen needs are getting better, requiring now 3 L of oxygen by nasal cannula. We will continue with the same management. 2. Right lower lobe pneumonia. The patient was on Zosyn as per Dr. Eder Dee. Help appreciated. We will continue with the same management. 3. UTI. Patient on antibiotics as above. 4. Hypotension. Blood pressure is still low although Levophed has been stopped this morning. We are going to keep this patient in the intensive care unit to see if this blood pressure can go a little bit up today when this patient is off vasopressor. 5. Diabetes mellitus type 2. We will continue with sliding scale insulin. 6. Hyperlipidemia. We will continue home medications. 7. History of coronary disease status post CABG. Aware. Patient is not complaining of any chest pain. 8. History of CVA. Aware. 9. Normal pressure hydrocephalus status post ventriculoperitoneal shunt. Stable. 10. Acute kidney injury resolved. 11. Physical deconditioning. Physical the therapy working with this patient. 12. As per family request, hospice consult has been requested. cc: Raghavendra Romero MD
--- NOTE | 2016-08-06 17:44 | PROGRESS NOTE ---
DATE: 08/06/2016 PRESENT ILLNESS: The patient was felt possibly to be septic but in hindsight now it looks like he became hypotensive because of his myocardial infarction and he was not septic. MEDICATIONS: Currently the patient is receiving Zyvox and Zosyn. PHYSICAL EXAMINATION: Vital signs: Temperature is 97 degrees, pulse 63, respirations 18, blood pressure 91/54. Generally: The patient is alert. He is eating. He does not have any complaints. Lungs: Clear to auscultation. Cardiovascular: Regular heart rate. Abdomen: Soft and nontender. Neurologic: Patient is alert. He can move his extremities. There is no tremor. LAB AND X-RAY: There is no new x-ray. CBC today shows a white count of 7880, hemoglobin 8.9 and platelet count 365,000. Creatinine is 0.9. GFR is greater than 60. Blood and urine cultures are negative. ASSESSMENT AND PLAN: The patient does not appear to have an infection at this time and for now I am going to discontinue the patient's antibiotics. I am available to see him p.r.n. COMORBIDITIES: Include diabetes mellitus, generalized debility, dementia, benign prostatic hypertrophy and acute myocardial infarction. I am available to see the patient on a p.r.n. basis. cc: Eder Dee MD
[2016-08-06] MEDS: CELEXA PO SCH (20:46)
[2016-08-06] MEDS: ZOCOR PO SCH (20:46)
[2016-08-07] MEDS: DUONEB (A & A) INH SCH ×5 (07:40→22:42)
[2016-08-07 07:54] LABS: MANUAL DIFF NEEDED? NO
[2016-08-07] MEDS: HUMULIN R SUBQ SCH ×4 (07:59→22:12)
[2016-08-07] MEDS: LOVENOX SUBQ SCH (08:00)
[2016-08-07] MEDS: NEURONTIN PO SCH ×4 (08:00→22:08)
[2016-08-07] MEDS: ASPIRIN EC PO SCH (08:00)
[2016-08-07] MEDS: THERA M PLUS PO SCH (08:00)
[2016-08-07] MEDS: VITAMIN B-12 PO SCH (08:00)
[2016-08-07] MEDS: MIRALAX PO SCH (08:00)
[2016-08-07] MEDS: PROTONIX PO SCH (08:00)
[2016-08-07 08:30] LABS: BASO% 0.2 % (0.0-0.8); EOS# 0.31 X1000 (0.0-0.7); EOS% 3.7 % (0.0-10.0); HEMATOCRIT 30.1 % (42.0-52.0); HEMOGLOBIN 9.1 g/dL (14.0-18.0); IMM GRAN# 0.02 X1000 (0.0-0.04); IMM GRAN% 0.2 % (0.0-0.5); LYMPH# 1.23 X1000 (1.2-3.4); LYMPH% 14.7 % (20.5-51.1); MCHC 30.2 g/dL (33-37); MCV 92.6 FL (81-99); MONO# 0.69 X1000 (0.11-0.59); MONO% 8.2 % (1.7-9.3); MPV 10.3 FL (7.4-10.4); PLT 336 X1000 (130-400); RBC 3.25 XMIL (4.7-6.1)
[2016-08-07 08:53] LABS: AGAP 12; BUN 13 mg/dL (8-22); CALCIUM 9.4 mg/dL (8.8-10.2); CHLORIDE 104 mmol/L (98-107); COSMO 281; SODIUM 141 mmol/L (136-145); TCO2 25 mmol/L (25-35)
[2016-08-07] MEDS ORDERED: CATHFLO IV ONE (10:30)
[2016-08-07] MEDS ORDERED: STERILE WATER INJ. INJ ONE (10:30)
--- NOTE | 2016-08-07 11:46 | PROGRESS NOTE ---
DATE: 08/07/2016 SUBJECTIVE: The patient feeling fine. The patient is off of Levophed since yesterday morning. OBJECTIVE: Vital Signs: Temperature 97.4 degrees, heart rate 78, respiratory rate 22, blood pressure 113/59, and O2 saturation 95% on room air. General: This is a chronically ill-looking and frail 81-year-old male, lying in bed, in no acute distress. HEENT: Head is normocephalic, atraumatic. Anicteric sclerae and pale conjunctivae. Mucous membranes moist. Neck: Supple. No JVD. No carotid bruits. No lymphadenopathy. No thyromegaly. Cardiovascular: S1 and S2 heard. No murmurs, gallops, or rubs. Regular rate and rhythm. Respiratory: There are coarse breath sounds that are still present in both bases. The patient is not using any accessory muscles or having work of breathing. Abdomen: Soft, nontender to palpation. Bowel sounds present. No organomegaly. Extremities: No clubbing, cyanosis, or edema. Peripheral pulses present in both legs. Neurological: The patient is alert, awake, moves 4 extremities. LABORATORY DATA: White cell count 8.39, hemoglobin 9.1, hematocrit 30.1, platelets 336,000. BMP unremarkable. ASSESSMENT AND PLAN: 1. Acute respiratory failure. The patient is doing much better. He was using 2 to 3 liters of oxygen by nasal cannula, and now apparently he is on room air. We will continue with the same management. 2. Right lower lobe pneumonia. The patient is on Zosyn as per Dr. Eder Dee. His help is appreciated. We will continue with the same management. 3. Urinary tract infection. The patient is on antibiotics as above. 4. Hypotension. Blood pressure is now better without using any vasopressors. 5. Diabetes mellitus type 2. We will continue with sliding scale insulin. 6. Hyperlipidemia. We will continue with home medications. 7. History of coronary artery disease, status post coronary artery bypass grafting, aware. 8. History of cerebrovascular accident, aware. 9. Normal acute kidney injury, resolved. 10. Physical deconditioning. Physical therapy is working with this patient, and as per the family's request, hospice consult has been requested, but they have not seen this patient during the last 2 days. cc: Raghavendra Romero MD
[2016-08-07] MEDS: ZOCOR PO SCH (22:08)
[2016-08-07] MEDS: CELEXA PO SCH (22:08)
[2016-08-08] MEDS: DUONEB (A & A) INH SCH ×6 (03:40→23:23)
[2016-08-08 06:18] LABS: MANUAL DIFF NEEDED? NO
[2016-08-08 06:23] LABS: BASO% 0.4 % (0.0-0.8); EOS# 0.29 X1000 (0.0-0.7); EOS% 4.1 % (0.0-10.0); HEMATOCRIT 30.9 % (42.0-52.0); HEMOGLOBIN 9.7 g/dL (14.0-18.0); IMM GRAN# 0.02 X1000 (0.0-0.04); IMM GRAN% 0.3 % (0.0-0.5); LYMPH# 1.27 X1000 (1.2-3.4); LYMPH% 17.8 % (20.5-51.1); MCH 28.6 PG (27-31); MCHC 31.4 g/dL (33-37); MCV 91.2 FL (81-99); MONO# 0.66 X1000 (0.11-0.59); MONO% 9.2 % (1.7-9.3); MPV 9.6 FL (7.4-10.4); NEUT% 68.2 % (42.2-75.2); PLT 379 X1000 (130-400); RBC 3.39 XMIL (4.7-6.1)
[2016-08-08 06:34] LABS: AGAP 12; BUN 13 mg/dL (8-22); CALCIUM 9.4 mg/dL (8.8-10.2); CHLORIDE 104 mmol/L (98-107); COSMO 284; POTASSIUM 3.7 mmol/L (3.5-5.1); SODIUM 141 mmol/L (136-145); TCO2 25 mmol/L (25-35)
[2016-08-08] MEDS: HUMULIN R SUBQ SCH ×4 (06:50→23:14)
[2016-08-08] MEDS: PROTONIX PO SCH (09:29)
[2016-08-08] MEDS: THERA M PLUS PO SCH (09:29)
[2016-08-08] MEDS: LOVENOX SUBQ SCH (09:29)
[2016-08-08] MEDS: NEURONTIN PO SCH ×4 (09:29→23:00)
[2016-08-08] MEDS: VITAMIN B-12 PO SCH (09:29)
[2016-08-08] MEDS: MIRALAX PO SCH (09:29)
[2016-08-08] MEDS: ASPIRIN EC PO SCH (09:29)
--- NOTE | 2016-08-08 15:27 | PROGRESS NOTE ---
DATE: 08/08/2016 SUBJECTIVE: Patient reports feeling fine. No difficulty in breathing. No fever or chills. OBJECTIVE: Vital signs: Temperature 98.3 degrees, heart rate 77, respiratory rate 14, blood pressure 128/51, O2 saturation 97% on 2 L nasal cannula. General Examination: This is a chronically ill-looking and frail, 81-year-old male, lying in bed, in no acute distress. HEENT: Head is normocephalic, atraumatic. Anicteric sclerae and pale conjunctivae. Mucous membranes moist. Neck: Supple. No JVD noted. No carotid bruits. No lymphadenopathy. No thyromegaly. Cardiovascular: S1, S2 heard. No murmurs, gallops, or rubs. Regular rate and rhythm. Respiratory: Clear bilaterally to auscultation. No work of breathing or using accessory muscles. Abdomen: Soft. Nontender to palpation. Bowel sounds present. No organomegaly. Extremity: No clubbing or cyanosis. Peripheral pulses present in both legs. Neurological: Patient is alert, awake. Moves 4 extremities. LABORATORY DATA: Unchanged to previous day with normal BMP. ASSESSMENT AND PLAN: 1. Acute respiratory failure. Right now the patient is using just 2 L of oxygen by nasal cannula. We will continue with same management. 2. Right lower lobe pneumonia. Patient currently is on Zosyn as per Dr. Eder Dee. Dr. Dee was following this patient. He was on Zyvox and Zosyn but because he thinks that this patient does not have any infection anymore, those medications have been discontinued. Now he is doing fine. 3. Diabetes mellitus type 2. We will continue with sliding scale insulin. 4. Hypotension. Blood pressure is back to normal. He is not, of course, requiring any vasopressors. 5. History of coronary artery disease. Stable. 6. History of cerebrovascular accident. Aware. 7. Acute kidney injury. Resolved. 8. Physical deconditioning. At this point this patient is stable so we are waiting for licensed master social worker to find a bed for this patient. cc: Raghavendra Romero MD
[2016-08-08] MEDS: CELEXA PO SCH (23:00)
[2016-08-08] MEDS: ZOCOR PO SCH (23:00)
[2016-08-09] MEDS: DUONEB (A & A) INH SCH ×6 (03:25→23:23)
[2016-08-09] MEDS: HUMULIN R SUBQ SCH ×4 (05:59→20:55)
[2016-08-09 07:00] LABS: MANUAL DIFF NEEDED? NO
[2016-08-09 07:08] LABS: BASO% 0.2 % (0.0-0.8); EOS# 0.21 X1000 (0.0-0.7); EOS% 2.3 % (0.0-10.0); HEMATOCRIT 31.5 % (42.0-52.0); IMM GRAN# 0.03 X1000 (0.0-0.04); IMM GRAN% 0.3 % (0.0-0.5); LYMPH# 1.25 X1000 (1.2-3.4); LYMPH% 13.8 % (20.5-51.1); MCH 28.9 PG (27-31); MCHC 31.7 g/dL (33-37); MONO# 0.79 X1000 (0.11-0.59); MONO% 8.7 % (1.7-9.3); MPV 9.4 FL (7.4-10.4); NEUT% 74.7 % (42.2-75.2); PLT 405 X1000 (130-400); RBC 3.46 XMIL (4.7-6.1)
[2016-08-09 07:35] LABS: AGAP 13; BUN 11 mg/dL (8-22); CALCIUM 9.1 mg/dL (8.8-10.2); CHLORIDE 102 mmol/L (98-107); COSMO 285; POTASSIUM 3.5 mmol/L (3.5-5.1); SODIUM 142 mmol/L (136-145); TCO2 27 mmol/L (25-35)
[2016-08-09] MEDS: VITAMIN B-12 PO SCH (10:10)
[2016-08-09] MEDS: NEURONTIN PO SCH ×4 (10:10→20:55)
[2016-08-09] MEDS: PROTONIX PO SCH (10:10)
[2016-08-09] MEDS: THERA M PLUS PO SCH (10:11)
[2016-08-09] MEDS: MIRALAX PO SCH (10:11)
[2016-08-09] MEDS: LOVENOX SUBQ SCH (10:11)
[2016-08-09] MEDS: ASPIRIN EC PO SCH (10:11)
--- NOTE | 2016-08-09 14:07 | PROGRESS NOTE ---
DATE: 08/09/2016 SUBJECTIVE: Patient reports feeling fine. No difficulty in breathing. No chills. OBJECTIVE: Vital Signs: Temperature 98.6 degrees, heart rate 73, respiratory rate 19, blood pressure 118/63. O2 saturation 95% on 2 L nasal cannula. General Examination: This is a chronically ill-looking and frail 81-year-old male, lying in bed, in no acute distress. HEENT: Head is normocephalic, atraumatic. Anicteric sclerae and pale conjunctivae. Mucous membranes moist. Neck: Supple. No jugular venous distention noted. No carotid bruits. No lymphadenopathy. No thyromegaly. Cardiovascular: S1, S2 heard. No murmurs, gallops, or rubs. Regular rate and rhythm. Respiratory: Clear bilaterally to auscultation. No work of breathing or using accessory muscles. Abdomen: Soft. Nontender to palpation. Bowel sounds present. No organomegaly. Extremities: No clubbing, cyanosis, or edema. Peripheral pulses present in both legs. Neurological Examination: Patient is alert, awake, moves 4 extremities. LABORATORY DATA: None from today. ASSESSMENT AND PLAN: 1. Acute respiratory failure. The patient is requiring only 2 L of oxygen by nasal cannula now. We will continue with the same management. 2. Right lower lobe pneumonia. That condition has resolved. Patient is not on any antibiotics as per Dr. Dee from Infectious Disease. 3. Diabetes mellitus type 2. We will continue with sliding scale insulin. 4. Hypertension. Blood pressure is back to normal. We are not providing any hypertensive medications. 5. History of coronary artery disease. Stable. 6. History of cerebrovascular accident. Aware. 7. Acute kidney injury. Resolved. 8. Physical deconditioning. Patient is very weak, so dialysis social worker has been involved in the care. So as soon as we get a bed from rehab facility, he can be discharged. cc: Raghavendra Romero MD
[2016-08-09] MEDS: ZOCOR PO SCH (20:55)
[2016-08-09] MEDS: CELEXA PO SCH (20:55)
[2016-08-10] MEDS: DUONEB (A & A) INH SCH ×5 (03:36→19:41)
[2016-08-10] MEDS: HUMULIN R SUBQ SCH ×4 (06:06→21:43)
[2016-08-10 06:33] LABS: MANUAL DIFF NEEDED? NO
[2016-08-10 07:01] LABS: BASO% 0.2 % (0.0-0.8); EOS# 0.29 X1000 (0.0-0.7); EOS% 3.2 % (0.0-10.0); HEMATOCRIT 31.6 % (42.0-52.0); HEMOGLOBIN 9.9 g/dL (14.0-18.0); IMM GRAN# 0.03 X1000 (0.0-0.04); IMM GRAN% 0.3 % (0.0-0.5); LYMPH# 1.31 X1000 (1.2-3.4); LYMPH% 14.6 % (20.5-51.1); MCH 28.8 PG (27-31); MCHC 31.3 g/dL (33-37); MCV 91.9 FL (81-99); MONO% 11.1 % (1.7-9.3); MPV 9.5 FL (7.4-10.4); NEUT% 70.6 % (42.2-75.2); PLT 421 X1000 (130-400); RBC 3.44 XMIL (4.7-6.1)
[2016-08-10 07:02] LABS: AGAP 12; BUN 9 mg/dL (8-22); CALCIUM 9.6 mg/dL (8.8-10.2); CHLORIDE 102 mmol/L (98-107); COSMO 282; POTASSIUM 3.1 mmol/L (3.5-5.1); SODIUM 141 mmol/L (136-145); TCO2 27 mmol/L (25-35)
[2016-08-10] MEDS ORDERED: KLOR-CON PO ONE (08:17)
[2016-08-10] MEDS: VITAMIN B-12 PO SCH (09:36)
[2016-08-10] MEDS: MIRALAX PO SCH (09:36)
[2016-08-10] MEDS: ASPIRIN EC PO SCH (09:36)
[2016-08-10] MEDS: LOVENOX SUBQ SCH (09:36)
[2016-08-10] MEDS: THERA M PLUS PO SCH (09:36)
[2016-08-10] MEDS: NEURONTIN PO SCH ×4 (09:37→20:39)
[2016-08-10] MEDS: PROTONIX PO SCH (09:39)
--- NOTE | 2016-08-10 13:15 | PROGRESS NOTE ---
DATE: 08/10/2016 SUBJECTIVE: This patient states that he is feeling fine. He has no chest pain or shortness of breath. No fever. No chills. Family members at the bedside. All their questions were answered. OBJECTIVE: Vital Signs: Temperature 98.7 degrees, pulse 84, respiratory rate 14, blood pressure 108/50, O2 saturation 100% on room air. HEENT: Head normocephalic. No trauma. PERRLA. Neck: Supple. No JVD. No masses. Central trachea. Cardiovascular: RRR. No murmurs. Chest: Mild scattered rhonchi. Otherwise clear to auscultation. This patient is not using any accessory muscles. Abdomen: Soft, nontender, nondistended. No hepatosplenomegaly. Extremities: No clubbing, cyanosis, or edema. Neurological: The patient is alert, awake. He moves all 4 extremities. LABORATORY: WBC 8.9, hemoglobin 9.9, hematocrit 31.6, platelets 421,000. Sodium 141, potassium 3.1, chloride 102, bicarbonate 27, BUN 9, creatinine 0.8, glucose 133, calcium 9.6. ASSESSMENT AND PLAN: 1. Acute respiratory failure. Resolved. This patient is using 2 L of oxygen by nasal cannula for now, continue with the same management. 2. Right lower lobe pneumonia. Resolved. He is not getting antibiotics as per Infectious Disease Department. 3. Type 2 diabetes. Continue with sliding scale. 4. Hypertension. He is not getting any antihypertensives medication and the blood pressure has been stable. 5. History of coronary artery disease. This patient was admitted because of a non-STEMI ST elevation myocardial infarction. Cardiology Department evaluated this patient and they suggest that probably this is related to a his infection. 6. History of CVA. Aware. 7. Acute kidney injury. Resolved. 8. Urinary tract infection. Resolved. 9. Physical deconditioning. This patient is very weak and the social work specialist has been involved in his care. We are looking for a rehab center so he can be discharged. cc: Juanpablo Giles MD
[2016-08-10] MEDS: CELEXA PO SCH (20:38)
[2016-08-10] MEDS: ZOCOR PO SCH (20:39)
[2016-08-11] MEDS: DUONEB (A & A) INH SCH ×7 (00:29→23:33)
[2016-08-11] MEDS: HUMULIN R SUBQ SCH ×4 (06:14→22:12)
[2016-08-11 06:53] LABS: AGAP 10; BUN 11 mg/dL (8-22); CALCIUM 8.9 mg/dL (8.8-10.2); CHLORIDE 102 mmol/L (98-107); COSMO 281; POTASSIUM 3.3 mmol/L (3.5-5.1); SODIUM 140 mmol/L (136-145); TCO2 28 mmol/L (25-35)
[2016-08-11] MEDS ORDERED: KLOR-CON PO ONE (07:59)
[2016-08-11] MEDS: ASPIRIN EC PO SCH (10:42)
[2016-08-11] MEDS: PROTONIX PO SCH (10:43)
[2016-08-11] MEDS: NEURONTIN PO SCH ×4 (10:43→22:12)
[2016-08-11] MEDS: THERA M PLUS PO SCH (10:43)
[2016-08-11] MEDS: LOVENOX SUBQ SCH (10:43)
[2016-08-11] MEDS: MIRALAX PO SCH (10:43)
[2016-08-11] MEDS: VITAMIN B-12 PO SCH (10:44)
--- NOTE | 2016-08-11 16:23 | PROGRESS NOTE ---
DATE: 08/11/2016 SUBJECTIVE: This patient is feeling fine. He is not complaining of chest pain or shortness of breath. No fever. No chills. Family members at the bedside. All of their questions were answered. OBJECTIVE: Vital Signs: Temperature 98.4 degrees, pulse 73, respiratory rate 14, blood pressure 140/50, oxygen saturation 94% on 2 L of nasal cannula. HEENT: Head normocephalic. No trauma. PERRLA. Neck: Supple. No JVD. No masses. Central trachea. Cardiovascular: RRR. No murmurs. Chest: Mild scattered rhonchi at the bases. Otherwise clear to auscultation. This patient is not using any accessory muscles. Abdomen: Soft, nontender, nondistended. No hepatosplenomegaly. Extremities: No edema. No clubbing. No cyanosis. Neurological: The patient is alert and oriented x3. No focal deficits. LABORATORY: Sodium 140, potassium 3.3, chloride 102, bicarbonate 28, BUN 11, creatinine 0.8, glucose 138, calcium 8.9. ASSESSMENT AND PLAN: 1. Right lower lobe pneumonia, resolved. 2. Acute respiratory failure, resolved. 3. Type 2 diabetes. Continue with sliding scale. 4. Hypertension. This patient's blood pressure is stable. He is not getting any antihypertensive medication. 5. History of coronary artery disease. This patient was admitted because of a [id number] myocardial infarction. Cardiology department evaluated this patient and they suggested that probably this is related to his infection. He was not complaining of chest pain. 6. History of cerebrovascular accident, aware. 7. Acute kidney injury, resolved. 8. Urinary tract infection, resolved. 9. Physical deconditioning. This patient is very weak and the psychiatric social worker supervisor has been involved in his care. We are looking for a rehab center so we can discharge this patient. 10. Hypokalemia. I will replace the potassium today. cc: Juanpablo Giles MD
[2016-08-11] MEDS: ZOCOR PO SCH (22:12)
[2016-08-11] MEDS: CELEXA PO SCH (22:12)
[2016-08-12] MEDS: DUONEB (A & A) INH SCH ×6 (02:24→22:51)
[2016-08-12] MEDS: HUMULIN R SUBQ SCH ×4 (06:47→22:18)
[2016-08-12 07:07] LABS: AGAP 10; BUN 13 mg/dL (8-22); CALCIUM 8.9 mg/dL (8.8-10.2); CHLORIDE 102 mmol/L (98-107); COSMO 282; POTASSIUM 3.8 mmol/L (3.5-5.1); SODIUM 140 mmol/L (136-145); TCO2 28 mmol/L (25-35)
[2016-08-12] MEDS: ASPIRIN EC PO SCH (08:14)
[2016-08-12] MEDS: PROTONIX PO SCH (08:14)
[2016-08-12] MEDS: THERA M PLUS PO SCH (08:14)
[2016-08-12] MEDS: MIRALAX PO SCH (08:14)
[2016-08-12] MEDS: VITAMIN B-12 PO SCH (08:14)
[2016-08-12] MEDS: NEURONTIN PO SCH ×4 (08:14→22:17)
[2016-08-12] MEDS: LOVENOX SUBQ SCH (08:15)
--- NOTE | 2016-08-12 15:08 | PROGRESS NOTE ---
DATE: 08/12/2016 SUBJECTIVE: This patient is feeling fine. No complaints at this moment, no acute events overnight. He denies nausea, vomiting, diarrhea. No fever. No chills. No shortness of breath. No chest pain. OBJECTIVE: Vital Signs: Temperature 98.4 degrees, pulse 79, respiratory rate 16, blood pressure 111/62, oxygen saturation 97% on room air. HEENT: Head normocephalic. No trauma. PERRLA. Neck: Supple. No JVD. No masses. Central trachea. Chest: Clear to auscultation. No wheezing. No rales. Abdomen: Soft, nontender, nondistended. No hepatosplenomegaly. Extremities: No edema. No clubbing. No cyanosis. Neurological: The patient is alert and oriented x3. No focal deficits. LABORATORY: Sodium 140, potassium 3.8, chloride 102, bicarbonate 28, BUN 13, creatinine 0.8. Glucose 137, calcium 8.9. ASSESSMENT AND PLAN: 1. Right lower lobe pneumonia. Resolved. 2. Acute respiratory failure. Resolved. 3. Type 2 diabetes. Continue with sliding scale. 4. Hypertension. Blood pressure is stable. Continue with the same management. 5. History of coronary artery disease. This patient was admitted because of a non-ST elevation myocardial infarction. Cardiology Department evaluated this patient. They suggested that probably the increase of troponin was related to the infection/septic shock that at this moment is resolved. 6. History of CVA. Aware. 7. Acute kidney injury. Resolved. 8. UTI. Resolved. 9. Physical deconditioning. This patient is very weak and the psychologist social has been involved in his care. We are looking for a rehab center so we can discharge this patient. cc: Juanpablo Giles MD
[2016-08-12] MEDS: CELEXA PO SCH (22:17)
[2016-08-12] MEDS: ZOCOR PO SCH (22:18)
[2016-08-13] MEDS: DUONEB (A & A) INH SCH ×6 (03:45→22:48)
[2016-08-13] MEDS: HUMULIN R SUBQ SCH ×4 (06:53→21:36)
[2016-08-13] MEDS: NORCO-5 PO PRN ×2 (09:26→16:16)
[2016-08-13] MEDS: THERA M PLUS PO SCH (09:26)
[2016-08-13] MEDS: VITAMIN B-12 PO SCH (09:26)
[2016-08-13] MEDS: ASPIRIN EC PO SCH (09:26)
[2016-08-13] MEDS: NEURONTIN PO SCH ×4 (09:26→21:36)
[2016-08-13] MEDS: PROTONIX PO SCH (09:26)
[2016-08-13] MEDS: MIRALAX PO SCH (09:27)
[2016-08-13] MEDS: LOVENOX SUBQ SCH (09:27)
--- NOTE | 2016-08-13 15:34 | PROGRESS NOTE ---
DATE: 08/13/2016 SUBJECTIVE: This patient is feeling fine. He is complaining about back pain, he will get pain medication. Otherwise he is feeling fine. OBJECTIVE: Vital Signs: Temperature 98.1 degrees, pulse 70, respiratory rate 16, blood pressure 103/49. Oxygen saturation 99 on 2 L of nasal cannula. HEENT: Head normocephalic. No trauma. PERRLA. Neck: Supple. No JVD. No masses. Central trachea. Chest: Clear to auscultation. No wheezing. No rales. Abdomen: Soft, nontender, nondistended. No hepatosplenomegaly. Extremities: No edema. No clubbing. No cyanosis. Neurological: The patient is alert and oriented x3. No focal deficits. LABORATORY: Glucose 148. ASSESSMENT AND PLAN: 1. Right lower lobe pneumonia. Resolved. 2. Acute respiratory failure. Resolved. 3. Increased troponins. Resolved. 4. Type 2 diabetes. Continue with sliding scale. 5. Hypertension. This is stable. 6. History of coronary artery disease. Stable. This patient is not complaining of chest pain. 7. History of CVA. Aware. 8. Acute kidney injury. Resolved. 9. UTI. Resolved. 10. Physical deconditioning. This patient is very weak and the older adult social work specialist has been involved in his care. We are looking for a rehab center so we can discharge this patient. cc: Juanpablo Giles MD
[2016-08-13] MEDS: ZOCOR PO SCH (21:36)
[2016-08-13] MEDS: CELEXA PO SCH (21:36)
[2016-08-14] MEDS: NORCO-5 PO PRN (01:24)
[2016-08-14] MEDS: DUONEB (A & A) INH SCH ×4 (03:38→15:06)
[2016-08-14] MEDS: HUMULIN R SUBQ SCH ×2 (06:30→11:15)
[2016-08-14 06:47] LABS: MANUAL DIFF NEEDED? NO
[2016-08-14 07:00] LABS: BASO% 0.4 % (0.0-0.8); EOS# 0.28 X1000 (0.0-0.7); EOS% 3.8 % (0.0-10.0); HEMATOCRIT 27.5 % (42.0-52.0); HEMOGLOBIN 8.4 g/dL (14.0-18.0); IMM GRAN# 0.02 X1000 (0.0-0.04); IMM GRAN% 0.3 % (0.0-0.5); LYMPH# 1.36 X1000 (1.2-3.4); LYMPH% 18.5 % (20.5-51.1); MCH 28.3 PG (27-31); MCHC 30.5 g/dL (33-37); MCV 92.6 FL (81-99); MONO# 0.56 X1000 (0.11-0.59); MONO% 7.6 % (1.7-9.3); MPV 9.3 FL (7.4-10.4); NEUT% 69.4 % (42.2-75.2); PLT 420 X1000 (130-400); RBC 2.97 XMIL (4.7-6.1)
[2016-08-14 07:18] LABS: AGAP 8; BUN 14 mg/dL (8-22); CALCIUM 8.6 mg/dL (8.8-10.2); CHLORIDE 103 mmol/L (98-107); COSMO 282; POTASSIUM 3.5 mmol/L (3.5-5.1); SODIUM 140 mmol/L (136-145); TCO2 29 mmol/L (25-35)
[2016-08-14 07:48] VITALS: BP 108/53
[2016-08-14] MEDS: ASPIRIN EC PO SCH (09:39)
[2016-08-14] MEDS: THERA M PLUS PO SCH (09:39)
[2016-08-14] MEDS: LOVENOX SUBQ SCH (09:39)
[2016-08-14] MEDS: MIRALAX PO SCH (09:39)
[2016-08-14] MEDS: PROTONIX PO SCH (09:39)
[2016-08-14] MEDS: VITAMIN B-12 PO SCH (09:39)
[2016-08-14] MEDS: NEURONTIN PO SCH ×2 (09:39→13:24)
--- NOTE | 2016-08-15 05:37 | DISCHARGE SUMMARY ---
ADMISSION DATE: 07/28/2016 DISCHARGE DATE: 08/14/2016 DIAGNOSES: 1. Non-ST elevation myocardial infarction. 2. Right lower lobe pneumonia, resolved. 3. Acute respiratory failure, resolved. 4. Diabetes type 2. 5. Hypertension. 6. Acute kidney injury, resolved. 7. Urosepsis with Escherichia coli urinary tract infection, resolved. 8. Normal pressure hydrocephalus, status post ventriculoperitoneal shunt, stable. DIAGNOSTICS: On 07/28/2016, chest x-ray revealed increased markings in the left lung believed to be fibrosis with pleural thickening. This is a stable chest. On 07/28/2016, CT of the head revealed no hemorrhage, atrophy with ventriculomegaly and chronic ischemic changes, unchanged. On 07/29/2016, echocardiogram revealed normal left ventricular cavity size with an EF of 35-40%, with anteroseptal and apical hypokinesis. Pulmonary artery systolic pressure of 56. Pulmonary arterial hypertension. No pericardial effusion or obvious intracardiac mass or thrombus seen. On 08/02/2016, renal ultrasound revealed a urinary bladder mass, large left renal cyst. CONSULTS: Dr. Evan Puentes, cardiology; Dr. Evan Lamb, urology; Dr. Eder Dee, infectious disease. MICROBIOLOGY: Blood cultures x2 sets revealed no growth. Urine culture on 07/29/2016 revealed E. coli. Repeat urine culture on 08/03/2016 revealed no growth. HOSPITAL COURSE: Mr. Martinez presented to the emergency room and was found to be in urosepsis with ultimately an E. coli UTI. He did require pressors on admission. He was found to have troponins of initially 5.66. They trended down to 3.9 over an 11 hour period. Cardiology did evaluate the patient. It was felt that he did have a non-ST elevation UT but this is secondary to urosepsis. The was updated. It was opted to make the patient a DNR level 2. He will be treated medically with no interventions. Additional antibiotics for his urinary tract infection of vancomycin and Zosyn were began. When Dr. Dee evaluated the patient, he did change him over to Ancef which was discontinued on 08/06/2016. Once the patient stabilized, he was able to be off pressors and since has maintained pressures in the 110s-120s/50s-70s. Diabetes was managed with pattern blood glucose with sliding scale insulin. He was able to be transitioned back to his Glucophage 1000 b.i.d. Renal ultrasound was performed due to sepsis and elevated creatinine/ he was found to have a mucosal bladder lesion on ultrasound. Dr. Lamb of urology did evaluate the patient. He recommended that the patient have a cystoscopy for further evaluation which could be done outpatient. He was found to have a right lower lobe pneumonia. He did have acute respiratory failure requiring a Ventimask. Luckily, he was able to be transitioned back to nasal cannula on the where he has remained. Due to his hospital course and deconditioning, the patient did need rehab. A bed was found for rehab, although the patient had used 20 days of Medicaid and the patient would have to pay and he was unable. [facility]. The patient did not have benefits to cover this. [place] did offer [facility], but they were not in this area, that would pay for his care, although the family was very concerned of the patient being so far away. After discussion, the asked to take the patient home with the help of [facility] as well as 6 hours a week assist for elder care. Therefore, the patient and family did meet with [facility] as well as Dr. Love today prior to discharge. Arrangements were made for this. DISCHARGE PHYSICAL EXAMINATION: Cardiovascular: Regular rate and rhythm. S1 and S2 appreciated. Pulmonary: Breath sounds are clear. No increased work of breathing noted. Gastrointestinal: Abdomen is soft, nontender, nondistended. Bowel sounds in all 4 quadrants. Extremities: No clubbing, cyanosis, or edema. Pulses palpable x4. Neurologic: The patient is alert and oriented x3 with no focal defects. DISCHARGE MEDICATIONS: Flomax 0.8 daily, Zocor 10 mg at bedtime, Protonix 40 mg p.o. daily, fish oil 1000 daily, multivitamin 1 daily, Glucophage 1000 mg b.i.d., Prinivil 5 daily, glipizide 2.5 daily, gabapentin 300 four times a day, finasteride 5 daily, Celexa 40 mg at bedtime, enteric- coated aspirin 81 daily, MiraLAX 17 g daily, [place] 5/325 q.6 hours p.r.n. DISCHARGE DIET: Diabetic with Glucerna supplements. DISCHARGE ACTIVITY: As tolerated. DISCHARGE VITAL SIGNS: Blood pressure is 108/53, with a heart rate of 66, respirations 16, temperature 97.6 degrees oral, with oxygen saturations of 97-100% on 2 L nasal cannula. DISPOSITION: The patient is being discharged home with his with [facility] per EMS transport. This is a greater than 30 minute discharge from to 12:45 to 1:20. Dictated by SID Benitez for Juanpablo Giles MD cc: SID Benitez MD
== END 2016-08-14 16:59 | disposition hospice, home (50) ==
LOC: ED 13:44 → SUATTDRO 20:29 → ICU 20:29 → 3N 08-01 09:52 → ICU 08-03 08:23 → 3N 08-07 16:28
PROVIDERS: ATTEND Internal Medicine